=== PATIENT | male | born 1985 | race Caucasian/White ===

== ENCOUNTER 2021-06-15 15:45 | Emergency (ER) | payer OTHER, SELFPAY ==
[2021-06-15 16:10] VITALS: BP 118/65; PULSE 79; RESP 18; TEMP 36.8; O2SAT 100; BMI 32.1
--- NOTE | 2021-06-15 16:17 | ECG_ITS ---
Test Reason : LEG EDEMA Blood Pressure : / mmHG Vent. Rate : 073 BPM Atrial Rate : 073 BPM P-R Int : 118 ms QRS Dur : 102 ms QT Int : 394 ms P-R-T Axes : 047 028 020 degrees QTc Int : 434 ms Normal sinus rhythm Normal ECG No previous ECGs available Referred By: Generic ED Physician Electronically Signed By:Delio Walls
[2021-06-15 16:49] LABS: MANUAL DIFF FLAG NO
[2021-06-15 16:56] LABS: Basophils Percent Auto 0.4 % (0-2); Eosinophils Absolute Auto 0.2 X10*3/uL (0.0-0.4); Eosinophils Percent Auto 1.6 % (0-4); Hematocrit 35.4 % (42-52); Hemoglobin 10.9 g/dl (14.0-18.0); Imm Gran Abs Auto 0.04 X10*3/uL (0.00-0.03); Imm Gran Pct Auto 0.4 % (0.0-0.4); Lymphocytes Absolute Auto 1.4 X10*3/uL (1.2-4.9); Lymphocytes Percent Auto 15.2 % (20-40); Mean Corpuscular HGB Conc 30.8 g/dl (31.0-36.0); Mean Corpuscular Hemoglobin 25.6 pg (27.0-33.0); Mean Corpuscular Volume 83.3 fL (80-98); Mean Platelet Volume 8.6 fL (9.4-12.4); Monocytes Absolute Auto 0.5 X10*3/uL (0.1-1.2); Monocytes Percent Auto 5.5 % (2-11); Neutrophils Absolute Auto 7.2 X10*3/uL (2.0-8.3); Neutrophils Percent Auto 76.9 % (45-73); Platelet Count 388 X10*3/uL (160-400); Red Blood Count 4.25 X10*6/uL (4.60-5.80); Red Cell Distribution Width 15.1 % (11.0-16.0); White Blood Count 9.3 X10*3/uL (4.8-10.8)
[2021-06-15 17:25] LABS: Anion Gap 10 (12-20); Blood Urea Nitrogen 8 mg/dL (9-16); Calcium 8.6 mg/dL (8.4-10.2); Carbon Dioxide 30 mmol/L (22-29); Chloride 104 mmol/L (96-108); Creatinine Clr Calc Pharmacy 155.2; Estimated Glomerular Filt Rate > 60; Glucose Random 123 mg/dL (60-115); Potassium 3.9 mmol/L (3.3-5.1); Sodium 140 mmol/L (135-145)
[2021-06-15 17:31] LABS: Troponin-I High Sensitivity < 3.5 ng/L (<3.5-35.0)
--- NOTE | 2021-06-15 20:45 | ED_ITS ---
HPI - General Adult General Chief complaint: General Medical Stated complaint: swollen legs Time Seen by Provider: 06/15/21 20:41 Source: patient Mode of arrival: ambulatory Limitations: no limitations History of Present Illness HPI narrative: This is a 56 years old male presented to the emergency department with the chief complaint of bilateral peripheral edema. Denies any chest pain shortness of breath. Patient is homeless he has no fever no chills no other systemic symptoms Onset (ago): week(s) Location: lower extremity Radiation: non-radiation Severity: moderate Related Data Previous Rx's Medication Instructions Recorded furosemide 20 mg tablet (Lasix) 20 mg PO DAILY #7 tab 06/15/21 Allergies Allergy/AdvReac Type Severity Reaction Status Date / Time Penicillins Allergy Unknown Verified 06/15/21 16:10 [facility] Past Medical History Medical History Asthma Surgical History Hx of tonsillectomy Social History Social History Advance Directives: No Advance Directives Information Provided: No Physical Exam Vital Signs: Vital Signs: Last Vital Signs Temp 98.2 F 06/15/21 16:10 Pulse 79 06/15/21 16:10 Resp 18 06/15/21 16:10 BP 118/65 06/15/21 16:10 Pulse Ox 100 06/15/21 16:10 Body Mass Index 32.1 Const: Other: Patient is awake and alert in not acute distress comfortable in the stretcher General: cooperative Nutritional Appearance: average body habitus Orientation/consciousness: oriented to person, oriented to place, oriented to time and patient oriented x3 HENMT: Other: His initial head eyes ears nose and throat is unremarkable Neck: Other: Neck is supple full range of motion Thyroid: Thyroid normal Lymphatic: no lymphadenopathy noted Chest: Chest palpation & inspection: normal inspection of the chest Resp: Other: Lungs are clear during auscultation Auscultation: clear to auscultation bilaterally Cardio: Other: Heart regular rate rhythm a Jugular venous distension: no JVD Rhythm: regular rhythm Heart sounds: S1 normal heart sound present and S2 normal heart sound present GI: Other: Abdomen is soft not tender Palpation (GI): Soft to palpation, not firm and no guarding Neuro: General: oriented to person, oriented to place, oriented to time and patient oriented x3 Extrem: Other: Examination of the lower extremity shows 3+ edema bilaterally Medical Decision Making MDM Narrative Medical decision making narrative: This is a 36 years old with bilateral lower extremity edema BUN and creatinine is normal, LFT okay, white count is normal no sign of infection he is afebrile and not toxic, I think it is reasonable to discharge the patient on p.o. furosemide and follow-up with his primary care physician as outpatient, also elevation of the legs and low-salt diet was recommended Lab Data Result diagrams: 06/15/21 16:40 06/15/21 16:40 Labs: Lab Results 06/15/21 06/15/21 06/15/21 Range/Units 16:40 16:40 16:40 WBC 9.3 (4.8-10.8) X10*3/uL RBC 4.25 L (4.60-5.80) X10*6/uL Hgb 10.9 L (14.0-18.0) g/dl Hct 35.4 L (42-52) % MCV 83.3 (80-98) fL MCH 25.6 L (27.0-33.0) pg MCHC 30.8 L (31.0-36.0) g/dl RDW 15.1 (11.0-16.0) % Plt Count 388 (160-400) X10*3/uL MPV 8.6 L (9.4-12.4) fL Immature Gran % (Auto) 0.4 (0.0-0.4) % Neut % (Auto) 76.9 H (45-73) % Lymph % (Auto) 15.2 L (20-40) % [place] % (Auto) 5.5 (2-11) % Eos % (Auto) 1.6 (0-4) % Baso % (Auto) 0.4 (0-2) % Lymph # (Auto) 1.4 (1.2-4.9) X10*3/uL [place] # (Auto) 0.5 (0.1-1.2) X10*3/uL Eos # (Auto) 0.2 (0.0-0.4) X10*3/uL Baso # (Auto) 0.0 (0.0-0.2) X10*3/uL Abs Immat Gran (auto) 0.04 H (0.00-0.03) X10*3/uL Absolute Neuts (auto) 7.2 (2.0-8.3) X10*3/uL Absolute Nucleated RBC 0.000 (0.0-0.012) X10*3/uL Nucleated RBC % (auto) 0.0 (0.0-0.2) /100WBC Sodium 140 (135-145) mmol/L Potassium 3.9 (3.3-5.1) mmol/L Chloride 104 (96-108) mmol/L Carbon Dioxide 30 H (22-29) mmol/L Anion Gap 10 L (12-20) BUN 8 L (9-16) mg/dL Creatinine 0.77 (0.5-1.4) mg/dL Estim Creat Clear Calc 155.2 Estimated GFR > 60 Random Glucose 123 H (60-115) mg/dL Calcium 8.6 (8.4-10.2) mg/dL Total Bilirubin 0.4 (0.0-1.0) mg/dL Direct Bilirubin 0.2 (0.0-0.5) mg/dL AST 39 H (5-37) U/L ALT 31 (0-40) U/L Alkaline Phosphatase 66 (39-117) U/L Troponin I High Sens < 3.5 (<3.5-35.0) ng/L Total Protein 7.3 (6.5-8.0) g/dL Albumin 3.5 (3.5-5.0) g/dL Discharge Plan Discharge Clinical Impression: Edema Patient Disposition: Home, Self-Care Instructions: Edema (ED) Additional Instructions: Keep the feet elevated low-salt diet rest take Lasix daily make an appoint with your primary care physician for follow-up Prescriptions: New furosemide [Lasix] 20 mg tablet 20 mg PO DAILY Qty: 7 RF: 0 Referrals: Physician,None [Primary Care Provider] - 2 days Interventions: ED Discharge Assessment Last Done: 06/15/21 23:08 Discharge Date/Time: 06/15/21 23:08
[2021-06-15] MEDS: Furosemide 40 MG TABLET PO (21:05)
[2021-06-15 21:06] LABS: Alanine Aminotransferase 31 U/L (0-40); Albumin Level 3.5 g/dL (3.5-5.0); Alkaline Phosphatase 66 U/L (39-117); Aspartate Amino Transferase 39 U/L (5-37); Bilirubin Direct 0.2 mg/dL (0.0-0.5); Bilirubin Total 0.4 mg/dL (0.0-1.0); Total Protein 7.3 g/dL (6.5-8.0)
== END 2021-06-15 23:08 | disposition home or self-care (01) ==
PROVIDERS: Emergency Provider Emergency Medicine
DX: R60.0 Localized edema (principal); Z79.899 Other long term (current) drug therapy
CPT/HCPCS: 36415; 80048; 80076; 84484; 85025; 93005; 99283

== ENCOUNTER 2021-08-31 21:08 | Emergency (ER) | payer OTHER, SELFPAY ==
[2021-08-31 21:18] VITALS: BP 127/65; PULSE 114; O2SAT 100
[2021-08-31 21:31] VITALS: BP 139/75; PULSE 101; RESP 18; TEMP 36.1; O2SAT 97; BMI 31.0
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
--- NOTE | 2021-08-31 22:28 | HO.SUDE ---
CARE Team attempted to meet with pt to offer him a SUDE assessment, but pt was discharged and left before CARE Team could meet with him.
== END 2021-08-31 22:33 | disposition home or self-care (01) ==
PROVIDERS: Emergency Provider Emergency Medicine
DX: T40.1X1A Poisoning by heroin, accidental (unintentional), initial encounter (principal); Y92.9 Unspecified place or not applicable; F11.19 Opioid abuse with unspecified opioid-induced disorder; Z79.899 Other long term (current) drug therapy; Z71.51 Drug abuse counseling and surveillance of drug abuser
CPT/HCPCS: 99283

== ENCOUNTER 2023-05-05 10:05 | Inpatient (IN) | payer MEDICAID, SELFPAY ==
[2023-05-05] VITALS (14 sets, daily range): BP systolic 130–169; BP diastolic 80–95; PULSE 97–120; RESP 16–55; TEMP 36.2–39; O2SAT 90–97; BMI 30.1; BMI 28.2; BMI 30.5
--- NOTE | ~2023-05-05 | CT_ITS ---
EXAMINATION: CT CHEST WITHOUT CONTRAST CLINICAL INFORMATION: Evaluate for abscess formation COMPARISON: Plain film same day TECHNIQUE: Multidetector volumetric CT imaging of the chest was done. Axial MIP volume rendering provided. Sagittal and coronal reformatted images were obtained. This CT examination was performed using dose optimization techniques as appropriate, variously including the following: *Automated exposure control *Adjustment of mA and/or kV according to patient size (this includes techniques or standardized protocols for targeted exams where dose is matched to indication/reason for exam; i.e. extremities or head) *Use of iterative reconstruction technique DLP: 272 mGy-cm FINDINGS: Thoracic inlet showing nodular thyroid. Ultrasound would be recommended. This is on the right. The axillary regions are unremarkable. Partially imaged upper abdominal structures demonstrate no acute finding. Possible splenomegaly but spleen is incompletely visualized. Centrally no significant coronary calcifications are seen. There is some central adenopathy. This could be reactive. This is a noncontrast study which significantly limits this exam especially for the detection of abscess. Prominent hilar regions could be adenopathy. Imaging lung restrepo. Right lung; Motion limits evaluation. Dense infiltrate of the right middle lobe.. There is air bronchograms more centrally but distally has a more confluent appearance and I believe there is low attenuation immediately adjacent associated with the pleura this may represent loculated fluid or pleural reaction. There is a small dependent posterior effusion present. Some areas of patchy opacity otherwise throughout the right lung. Left lung; Again motion limits the exam. Areas of patchy opacity in left lower lobe and left upper lung may represent areas of infiltrate. Review of the bone windows demonstrates no suspicious finding.: CT/CT chest wo IV con IMPRESSION: Lack of intravenous contrast. Given this abscess formation is not adequately evaluated for. There is a dense infiltrate in the right middle lobe as described with adjacent pleural collection and abscess in this region cannot be excluded. If further evaluation is warranted recommendation is post contrast study. Otherwise scattered areas of opacities in the lungs consistent with patchy areas of infiltrate. There is a small dependent right effusion. Increased central adenopathy may be reactive. Follow-up is recommended here
--- NOTE | ~2023-05-05 | XR_ITS ---
EXAMINATION: XR CHEST CLINICAL INFORMATION: Chest tube COMPARISON: 05/10/2023 (time stamp 9:11 AM) TECHNIQUE: AP portable upright view of the chest was obtained. FINDINGS: Right small bore chest tube noted. Significant decrease in volume of right pleural effusion with small residual effusion. No pneumothorax. Moderate residual left effusion. Improving lung volumes. Bibasilar lung consolidation. Right PICC line tip projects over the right heart. Heart and mediastinum grossly normal where seen. Gaseous distention of the stomach. XR/XR chest 1V IMPRESSION: Reduction in right pleural effusion following chest tube. Persistent left effusion.
--- NOTE | ~2023-05-05 | CT_ITS ---
EXAMINATION: CT CHEST WITHOUT CONTRAST CLINICAL INFORMATION: Pneumonia, abscess evaluation COMPARISON: Examination of 5 days previous TECHNIQUE: Multidetector volumetric CT imaging of the chest was done. Axial MIP volume rendering provided. Sagittal and coronal reformatted images were obtained. This CT examination was performed using dose optimization techniques as appropriate, variously including the following: *Automated exposure control *Adjustment of mA and/or kV according to patient size (this includes techniques or standardized protocols for targeted exams where dose is matched to indication/reason for exam; i.e. extremities or head) *Use of iterative reconstruction technique DLP: 251 mGy-cm FINDINGS: Examination limited due to lack of IV contrast. LUNGS: New marked compressive atelectasis in the lower lobes since the previous evaluation. New atelectatic change of the posteromedial left upper lobe near the apex. Lateral subpleural lingular nodule series 5 image 359 at 4.5 to 5 mm, not significantly changed. New peripheral consolidation in the lingula images 378-407 may reflect atelectasis or infiltrate. Nodularity of the subpleural lateral left upper lobe again observed with an ill-defined focus image 274 at 1.6 cm slightly larger, with ill-defined margins and a smaller rounder focus image 266 at 4 mm. These could be related to infectious or inflammatory process however close follow-up would be recommended. Prominent consolidation in the right middle lobe is again observed with an oblong collection closely apposed to the pleural surface during 12 Hounsfield units and 7.2 cm maximal dimension. There appear to be posterior inferior gas bubbles observed. Abscess or empyema considered. MEDIASTINUM: Thyroid nodularity again seen. Mediastinal nodes again seen, slightly larger in the azygos esophageal recess at 1.5 cm. A left para-aortic node series 3 image 23 at 9 mm short axis is mildly larger. Small pericardial fluid. CORONARY ARTERY CALCIFICATION: None visualized on this study. PLEURA: Increased bilateral effusions since the previous evaluation. AXILLA: No new suspicious axillary adenopathy. UPPER ABDOMEN: Spleen enlarged at 14.1 cm but not completely visualized. OSSEOUS STRUCTURES: Spondylitic changes. Slight loss of vertebral body height mid to lower thoracic vertebra but not appearing hyperacute. CT/CT chest wo IV con IMPRESSION: Increased bilateral pleural effusions since the prior evaluation with new compressive atelectasis in the lower lobes. New peripheral consolidation in the lingula may reflect atelectasis or infiltrate. Nodularity of the subpleural lateral left upper lobe may be related to infectious or inflammatory process, with one of the foci appearing slightly larger. Close follow-up would be recommended. Right middle lobe consolidation is again observed with an oblong collection closely apposed to the pleural surface. Examination is limited due to lack of IV contrast however an abscess or empyema is considered. Slightly to mildly larger mediastinal nodes. Other incidental findings as noted above.
--- NOTE | ~2023-05-05 | XR_ITS ---
EXAMINATION: XR CHEST CLINICAL INFORMATION: Follow-up pneumonia/hypoxia COMPARISON: 05/05/2023 chest radiograph and chest CT TECHNIQUE: 2 views of the chest were obtained. FINDINGS: Increasing opacity is identified in the right mid to lower hemithorax and moderate sized layering effusion is seen on lateral view. Heart size likely within normal limits. Mediastinum is unremarkable. Vascularity is mildly prominent. Obscuration of the medial left hemidiaphragm. No definite bony abnormality. XR/XR chest 2V IMPRESSION: Increasing right hemithorax opacity, in part due to moderately sized pleural effusion and likely previously demonstrated right middle lobe consolidation. Interval retrocardiac process and mild vascular congestion also not excluded.
--- NOTE | ~2023-05-05 | US_ITS ---
EXAMINATION: ULTRASOUND-GUIDED THORACENTESIS CLINICAL INFORMATION: Pneumonia and pleural effusion COMPARISON: Previous chest x-ray and chest CT from earlier the same day TECHNIQUE: Procedure and risks and benefits including bleeding, infection and pneumothorax were discussed with the patient and informed consent was obtained. The right posterior lateral chest was prepped and draped in the usual sterile fashion. The skin and soft tissues were anesthetized with 1% lidocaine plain. Using ultrasound guidance and a 4 [place] one stick system, access to the right pleural effusion was obtained. Over an 035 guidewire and following serial dilatation, a 10.2 [place] pigtail chest tube was positioned in the right pleural space. 850 mL of serous sanguinous fluid was removed. Diagnostic specimen was sent. FINDINGS: There is a large minimally complex right pleural effusion with some septations. US/US drain thoracentesis IMPRESSION: Ultrasound-guided right chest tube placement.
--- NOTE | ~2023-05-05 | US_ITS ---
EXAMINATION: US VENOUS WITH DOPPLER UPPER EXTREMITY, LEFT CLINICAL INFORMATION: IV drug abuse with redness and swelling COMPARISON: None available. TECHNIQUE: Ultrasound of the upper extremity is performed using compression sonography and color and pulse Doppler flow with assessment of augmentation of flow. There is also imaging and Doppler assessment of the jugular and subclavian veins. Spectral analysis with color-flow imaging is performed. FINDINGS: There is acute thrombus present in one of the brachial veins as well as the median cubital vein and radial vein. There is thrombus present in the cephalic vein in the median cubital vein which are superficial veins. The jugular vein and subclavian vein and axillary vein are all patent. US/US venous duplex UE LT IMPRESSION: Positive for DVT in the brachial and radial veins as well as superficial thrombophlebitis in the cephalic and median cubital vein.
--- NOTE | ~2023-05-05 | XR_ITS ---
EXAMINATION: XR CHEST CLINICAL INFORMATION: Chest pain. COMPARISON: None available. TECHNIQUE: Frontal view of the chest was obtained. FINDINGS: Prominent right lower and mild right upper lobe patchy airspace opacities, consistent with multifocal pneumonia. No pleural effusion or pneumothorax. Unremarkable cardiomediastinal silhouette. XR/XR chest 1V IMPRESSION: Prominent right lower and mild right upper lobe patchy airspace opacities, consistent with multifocal pneumonia.
--- NOTE | 2023-05-05 10:44 | ED.GENADULT ---
HPI - General Adult General Chief complaint: General Medical Stated complaint: R SIDE CHEST PAIN, WEAK Time Seen by Provider: 05/05/23 10:44 Source: patient and EMS Mode of arrival: EMS Limitations: no limitations History of Present Illness HPI narrative: Patient is a 37 year old assigned male at with a history of cocaine abuse presenting to the emergency department today feeling generally unwell with right sided chest pain. Patient states that he is homeless and has had a cough for a few days but now he feels significantly worse with right sided chest pain. Patient denies any dizziness, lightheadedness, abdominal pain, nausea, vomiting, fever, chills, blurry vision, double vision, loss of vision, difficulty breathing, shortness of breath, back pain, night sweats, pain with urination, increased urinary frequency, increased urinary urgency, blood in his urine or stool, syncope or a near syncopal episode, recent trauma or falls, bowel incontinence, bladder incontinence, bowel retention, bladder retention, or any other complaints at this time. Onset (ago): day(s) (3) Location: chest Radiation: non-radiation Severity: moderate Severity scale (1-10): 5 Relieving factors: none Exacerbating factors: none Associated symptoms: chest pain and cough Treatments prior to arrival: none Related Data Home Medications Medication Instructions Recorded Confirmed No Known Home Meds 05/05/23 05/05/23 Allergies Allergy/AdvReac Type Severity Reaction Status Date / Time Penicillins Allergy Unknown Verified 06/15/21 16:10 Review of Systems Constitutional: Constitutional: Reports no additional constitutional complaints, Denies chills, Denies fever(s) and Denies night sweats Eyes: Eyes: Reports no additional eye complaints, Denies blurry vision, Denies change in vision, Denies diplopia, Denies eye discharge, Denies loss of vision and Denies eye pain ENT: Denies dizziness Cardiovascular: Cardiovascular: Reports no additional cardiovascular complaints, Reports chest pain, Denies lightheadedness, Denies Loss of Consciousness and Denies dyspnea Respiratory: Respiratory: Reports no additional respiratory complaints, Reports cough and Denies dyspnea Gastrointestinal: Gastrointestinal: Reports no additional gastrointestinal complaints, Denies abdominal pain, Denies melena, Denies hematochezia, Denies change in bowel habits and Denies change in stool character Genitourinary: Genitourinary: Reports no additional male genitourinary complaints, Denies hematuria, Denies oliguria, Denies difficulty urinating, Denies dysuria, Denies urinary frequency, Denies urinary hesitancy, Denies urinary incontinence and Denies urinary urgency Musculoskeletal: Musculoskeletal: Reports no additional musculoskeletal complaints, Denies numbness and Denies tingling Neurologic: Denies dizziness, Denies loss of vision, Denies numbness and Denies tingling Psychiatric: Psychiatric: Reports no additional psychiatric complaints Endocrine: Endocrine: Reports no additional endocrine complaints Hematologic/Lymphatic: Hematologic/Lymphatic: Reports no additional hematologic/lymphatic complaints Allergic/Immunologic: Allergic/Immunologic: Reports no additional allergic/immunologic complaints PMFSH Past Medical History Attestation statement: The following information was validated with the patient. Source: old records reviewed and nursing notes reviewed Medical History Asthma Substance abuse Surgical History Hx of tonsillectomy Social History Social History Alcohol intake: current Alcohol intake frequency: 3 or more drinks per day Alcohol type: hard liquor Patient Tobacco Use Status: Current everyday Tobacco user Smoked in Last 30 Days: Yes Substance Use Type: Crack/Cocaine, Heroin and Marijuana Advance Directives: No Advance Directives Information Provided: No Nutrition Risks: Dental problems and Poor intake 0-25% >4 days Physical Exam ED Vital Signs: Vital Signs - 24 hr 05/05/23 10:15 05/05/23 10:54 05/05/23 10:55 Temperature 97.8 F 102 F H Pulse Rate 110 H 120 H Respiratory Rate 24 H 48 H Blood Pressure 146/82 H Pulse Oximetry 93 90 L Oxygen Delivery Method Room Air Room Air Oxygen Flow Rate 05/05/23 11:10 05/05/23 12:34 05/05/23 13:59 Temperature 102 F H Pulse Rate 114 H 119 H 116 H Respiratory Rate 49 H 49 H 45 H Blood Pressure 139/80 158/89 H 163/90 H Pulse Oximetry 94 96 95 Oxygen Delivery Method Nasal Cannula Nasal Cannula Nasal Cannula Oxygen Flow Rate 2 2 2 BMI result Body Mass Index 28.2 Const General: cooperative, no acute distress, alert and awake Nutritional Appearance: well nourished Orientation/consciousness: patient oriented x3 Limitations: no limitations [facility] Head: Yes normal to inspection and Yes atraumatic Ears: hearing grossly normal bilaterally and external ears normal General nose exam: Normal external nose present, no nasal discharge noted and no epistaxis Face and sinus: Yes normal facial exam, No abrasion and No laceration Mouth: Normal oral and palatal mucosa present, no drooling and no muffled voice Eyes General: appearance normal, both eyes and all related structures Periorbital: periorbital findings normal Eyelids: Yes eyelids normal Conjunctivae: conjunctivae normal Pupils: Equal, round and reactive pupils present EOM: EOMs intact bilaterally Neck Neck: Yes normal visual inspection, Yes full ROM and Yes no lymphadenopathy Chest Chest palpation & inspection: normal inspection of the chest Resp Effort & Inspection: able to speak in complete sentences and labored Cardio Rate: tachycardic Rhythm: regular rhythm GI Inspection: Yes normal to inspection Palpation (GI): Soft to palpation, not firm, nontender, no guarding and not rigid Neuro General: patient oriented x3 and moves all extremities Cranial nerves: Yes Equal, round and reactive pupils present Cognition (Neuro): normal cognition Motor exam (neuro): 5/5 motor strength present throughout Sensory Exam: Normal double simultaneous stimulation for sensation Coordination: [id number] test normal Extrem General: Yes normal to inspection, Yes full ROM and Yes capillary refill normal Psych Appearance: grossly normal Mental Status: mental status grossly normal Affect: normal affect Attitude: cooperative Thought process: Normal thought process present Thought content: Normal thought content present Insight: Good insight present (Psych) Medications Administered Generic Name Dose Route Start Last Admin Trade Name Freq PRN Reason Stop Dose Admin Vancomycin HCl 2,000 mg in 500 mls @ 250 mls/hr 05/05/23 14:00 05/05/23 15:09 Vancomycin/Ns IV 05/05/23 15:59 250 mls/hr ONCE ONE Administration Discontinued Medications Generic Name Dose Route Start Last Admin Trade Name Freq PRN Reason Stop Dose Admin Acetaminophen 650 mg 05/05/23 12:34 05/05/23 13:19 Acetaminophen Supp 650 Mg Supp.Rect VT 05/05/23 12:35 650 mg ONCE ONE Administration Ceftriaxone Sodium 2 gm/ 50 mls @ 100 mls/hr 05/05/23 10:52 05/05/23 11:59 Sodium Chloride IV 05/05/23 11:21 Infused ONCE ONE Infusion Sodium Chloride 2,857.62 mls @ 2,857.62 mls/hr 05/05/23 10:54 05/05/23 13:58 Ns 30 ml/kg infuse over 1 hr (2857.62 ml) 05/05/23 11:53 Infused IV Infusion .Q1H STA Ketorolac Tromethamine 15 mg 05/05/23 12:34 05/05/23 13:19 Ketorolac Tromethamine 15 Mg/Ml Vial IVPUSH 05/05/23 12:35 15 mg ONCE ONE Administration Medical Decision Making Medical Decision Making MDM Narrative: Patient is a 37 year old assigned male at with a history of cocaine use presenting to the emergency department today with right sided chest pain and feeling generally unwell. Patient's physical exam was as noted in the physical exam portion of this chart. Patient's blood work showed a markedly elevated WBC count of 27, a lactic acid of 2.5, and a decreased albumin of 2.8. The rest of the patient's labs were grossly normal. Patient's EKG was unremarkable. Patient's chest x-ray showed multifocal pneumonia. Patient was hypoxic at 88% on room air and was placed on 2 liters of oxygen via nasal cannula which brought him up to 96%. Patient was immediately given IV ceftriaxone and 30mg/kg of IV fluids. Patient's clinical presentation is consistent with sepsis secondary to pneumonia. I spoke with the hospitalist team who agreed to admission. I explained my physical exam findings as well as all test results to the patient. I answered all questions asked by the patient. Patient verbalized agreement and understanding with this treatment plan and admission. Differential Diagnosis Differential Diagnoses: The differential diagnosis associated with the presentation includes sepsis, pneumonia Admission/Observation Consideration of admission/observation: Escalation of care including admission/observation considered Patient is admitted. Lab Data [facility] Lab Attestation statement: I reviewed the patient's lab results. My interpretation of these labs is in the MDM portion of this chart. 05/05/23 11:08 05/05/23 12:58 Labs: Lab Results 05/05/23 05/05/23 05/05/23 Range/Units 11:06 11:08 11:08 WBC 27.0 H (4.8-10.8) X10*3/uL RBC 5.37 (4.60-5.80) X10*6/uL Hgb 13.2 L (14.0-18.0) g/dl Hct 41.7 L (42.0-52.0) % MCV 77.7 L (80.0-98.0) fL MCH 24.6 L (27.0-33.0) pg MCHC 31.7 (31.0-36.0) g/dl RDW 14.1 (11.0-16.0) % Plt Count 261 (160-400) X10*3/uL MPV 9.3 L (9.4-12.4) fL Immature Gran % (Auto) 0.8 H (0.0-0.4) % Neut % (Auto) 93.2 H (45-73) % Lymph % (Auto) 1.9 L (20-40) % [place] % (Auto) 3.4 (2-11) % Eos % (Auto) 0.4 (0-4) % Baso % (Auto) 0.3 (0-2) % Lymph # (Auto) 0.5 L (1.2-4.9) X10*3/uL [place] # (Auto) 0.9 (0.1-1.2) X10*3/uL Eos # (Auto) 0.1 (0.0-0.4) X10*3/uL Baso # (Auto) 0.1 (0.0-0.2) X10*3/uL Abs Immat Gran (auto) 0.21 H (0.00-0.03) X10*3/uL Absolute Neuts (auto) 25.1 H (2.0-8.3) x10*3/uL Absolute Nucleated RBC 0.000 (0.0-0.012) X10*3/uL Nucleated RBC % (auto) 0.0 (0.0-0.2) /100WBC Smear Tech's Comments VERIFIED Sodium (135-145) mmol/L Potassium (3.3-5.1) mmol/L Chloride (96-108) mmol/L Carbon Dioxide (22-29) mmol/L Anion Gap (12-20) BUN (9-16) mg/dL Creatinine (0.5-1.4) mg/dL Estim Creat Clear Calc Estimated GFR Random Glucose (60-115) mg/dL Lactic Acid 2.5 H* (0.5-2.0) mmol/L Calcium (8.4-10.2) mg/dL Magnesium (1.6-2.6) mg/dL Total Bilirubin (0.0-1.0) mg/dL AST (5-37) U/L ALT (0-40) U/L Alkaline Phosphatase (39-117) U/L Troponin I High Sens 6.9 (<3.5-35.0) ng/L B-Natriuretic Peptide (<100) pg/mL Total Protein (6.5-8.0) g/dL Albumin (3.5-5.0) g/dL COVID-19 ([facility]) (Negative) COVID-19 Clin Com 05/05/23 05/05/23 05/05/23 Range/Units 11:08 11:09 12:58 WBC (4.8-10.8) X10*3/uL RBC (4.60-5.80) X10*6/uL Hgb (14.0-18.0) g/dl Hct (42.0-52.0) % MCV (80.0-98.0) fL MCH (27.0-33.0) pg MCHC (31.0-36.0) g/dl RDW (11.0-16.0) % Plt Count (160-400) X10*3/uL MPV (9.4-12.4) fL Immature Gran % (Auto) (0.0-0.4) % Neut % (Auto) (45-73) % Lymph % (Auto) (20-40) % [place] % (Auto) (2-11) % Eos % (Auto) (0-4) % Baso % (Auto) (0-2) % Lymph # (Auto) (1.2-4.9) X10*3/uL [place] # (Auto) (0.1-1.2) X10*3/uL Eos # (Auto) (0.0-0.4) X10*3/uL Baso # (Auto) (0.0-0.2) X10*3/uL Abs Immat Gran (auto) (0.00-0.03) X10*3/uL Absolute Neuts (auto) (2.0-8.3) x10*3/uL Absolute Nucleated RBC (0.0-0.012) X10*3/uL Nucleated RBC % (auto) (0.0-0.2) /100WBC Smear Tech's Comments Sodium 139 (135-145) mmol/L Potassium 3.4 (3.3-5.1) mmol/L Chloride 106 (96-108) mmol/L Carbon Dioxide 21 L (22-29) mmol/L Anion Gap 15 (12-20) BUN 11 (9-16) mg/dL Creatinine 0.67 (0.5-1.4) mg/dL Estim Creat Clear Calc 171.1 Estimated GFR > 60 Random Glucose 143 H (60-115) mg/dL Lactic Acid (0.5-2.0) mmol/L Calcium 8.8 (8.4-10.2) mg/dL Magnesium 1.9 (1.6-2.6) mg/dL Total Bilirubin 1.6 H (0.0-1.0) mg/dL AST 50 H (5-37) U/L ALT 43 H (0-40) U/L Alkaline Phosphatase 75 (39-117) U/L Troponin I High Sens (<3.5-35.0) ng/L B-Natriuretic Peptide 80 (<100) pg/mL Total Protein 7.4 (6.5-8.0) g/dL Albumin 2.8 L (3.5-5.0) g/dL COVID-19 ([facility]) Negative (Negative) COVID-19 Clin Com See Note Independent Interpretation I performed an independent interpretation of an: EKG and Plain X-Ray Interpretation: My interpretation is in agreement with the radiologist's impression of this imaging study. EXAMINATION: XR CHEST CLINICAL INFORMATION: Chest pain. COMPARISON: None available. TECHNIQUE: Frontal view of the chest was obtained. FINDINGS: Prominent right lower and mild right upper lobe patchy airspace opacities, consistent with multifocal pneumonia. No pleural effusion or pneumothorax. Unremarkable cardiomediastinal silhouette. XR/XR chest 1V IMPRESSION: Prominent right lower and mild right upper lobe patchy airspace opacities, consistent with multifocal pneumonia. Dictated By: Lincoln Medel MD Signed By: Electronically signed by Lincoln Medel MD 05/05/23 1107 Vent. Rate: 110 BPM ? ? Atrial Rate: 110 BPM P-R Int: 126 ms? QRS Dur: 100 ms QT Int: 320 ms ? ? ? P-R-T Axes: 031 051 035 degrees QTc Int: 433 ms ? Sinus tachycardia Otherwise normal ECG When compared with ECG of 15-JUN-2021 16:29, Vent. rate has increased BY? 37 BPM DD/ 1111 Radiology Impression Discussion of test interpretation with radiology: I have reviewed the radiologist's reading. Independent Historian Clinical information obtained from an independent historian. History obtained from or confirmed by: EMS (EMS provided additional history as well as confirmed the history provided by the patient.) Social Determinants Patient?s care significantly limited by Social Determinants of Health including: Inadequate housing Critical Care Time Critical Care Time Critical Care Time: Yes Total Critical Care Time: 45 Attestation: I spent 45 minutes of Critical Care Time with this patient. This does not include time spent on separately reported billable procedures. Discharge Plan Discharge Clinical Impression: Multifocal pneumonia, Sepsis Patient Disposition: Admitted As Inpatient
--- NOTE | 2023-05-05 10:45 | ECG_ITS ---
Test Reason : CHEST PAIN Blood Pressure : / mmHG Vent. Rate : 110 BPM Atrial Rate : 110 BPM P-R Int : 126 ms QRS Dur : 100 ms QT Int : 320 ms P-R-T Axes : 031 051 035 degrees QTc Int : 433 ms Sinus tachycardia Otherwise normal ECG When compared with ECG of 15-JUN-2021 16:29, Vent. rate has increased BY 37 BPM Referred By: Calista Feldman Electronically Signed By:SULAIMAN WAGNER
--- NOTE | 2023-05-05 10:54 | PC.NURSE ---
pt cleaned of large amount stool burden, appears to have varying incontinence, some old some new. pt requiring multiple staff assist in wash cloth bath.able to walk back to bed in new linens w stand by assist.
[2023-05-05] MEDS: 0.9 % Sodium Chloride 2,857.62 ML 2857.62 ML IV (11:16)
[2023-05-05 11:18] LABS: Basophils Absolute Auto 0.1 X10*3/uL (0.0-0.2); Basophils Percent Auto 0.3 % (0-2); Eosinophils Absolute Auto 0.1 X10*3/uL (0.0-0.4); Eosinophils Percent Auto 0.4 % (0-4); Hematocrit 41.7 % (42.0-52.0); Hemoglobin 13.2 g/dl (14.0-18.0); Imm Gran Abs Auto 0.21 X10*3/uL (0.00-0.03); Imm Gran Pct Auto 0.8 % (0.0-0.4); Lymphocytes Absolute Auto 0.5 X10*3/uL (1.2-4.9); Lymphocytes Percent Auto 1.9 % (20-40); Mean Corpuscular HGB Conc 31.7 g/dl (31.0-36.0); Mean Corpuscular Hemoglobin 24.6 pg (27.0-33.0); Mean Corpuscular Volume 77.7 fL (80.0-98.0); Mean Platelet Volume 9.3 fL (9.4-12.4); Monocytes Absolute Auto 0.9 X10*3/uL (0.1-1.2); Monocytes Percent Auto 3.4 % (2-11); Neutrophils Absolute Auto 25.1 x10*3/uL (2.0-8.3); Neutrophils Percent Auto 93.2 % (45-73); Platelet Count 261 X10*3/uL (160-400); Red Blood Count 5.37 X10*6/uL (4.60-5.80); Red Cell Distribution Width 14.1 % (11.0-16.0); SCAN SMEAR FLAG 1
[2023-05-05] MEDS: cefTRIAXone sodium 2 GM in 0.9 % Sodium Chloride 50 ML IV (11:20)
--- NOTE | 2023-05-05 11:25 | PC.NURSE ---
pt arrived to ED22 H via EMS, tachypnic, diaphoretic and covered in feces. pt brought to bathroom to get cleaned. determined pt could be ? septic, brought to ED2 - tachycardic on the monitor at one-teens, sao2 90s on room air started on 2L nc, pt tachypnic at 50 rr, BP stable, rectal temp febrile at 102. . 2 IV lines placed, pt a difficult poke d/t IVDU, 20G placed in the RAC, 22G placed in L hand. septic fluids infusing on pressure bag. IV abx hung.
[2023-05-05 11:28] LABS: COVID-19 Test Negative (Negative); IDNOW Serial# 08D9AD1C
[2023-05-05 11:32] LABS: Lactic Acid 2.5 mmol/L (0.5-2.0)
[2023-05-05 11:35] LABS: MANUAL DIFF FLAG SCAN; SLIDE REVIEW VERIFIED
[2023-05-05 11:36] LABS: B Type Natriuretic Peptide 80 pg/mL (<100)
[2023-05-05 11:41] LABS: Troponin-I High Sensitivity 6.9 ng/L (<3.5-35.0)
--- NOTE | 2023-05-05 12:19 | PHA.MEDREC ---
Pharmacy Consult ? Medication Reconciliation Pharmacy has completed the medication reconciliation. patient was a poor historian. He confirmed that he takes medications OTC but was unable to tell me which ones. I started to list what it could be used for and he nodded at pain medications but was unable to tell me what and how he takes it. He said he uses [facility]. I called [facility] and [facility] to see if there was any history and there was only one prescription for suboxone about a year ago at [facility].
[2023-05-05 13:12] LABS: Reflex Lactate? Lactic Acid Added
[2023-05-05] MEDS: Acetaminophen Supp 650 MG SUPP.RECT PR (13:19)
[2023-05-05] MEDS: Ketorolac Tromethamine 15 MG/ML VIAL IVPUSH (13:19)
[2023-05-05 13:26] LABS: Alanine Aminotransferase 43 U/L (0-40); Albumin Level 2.8 g/dL (3.5-5.0); Alkaline Phosphatase 75 U/L (39-117); Anion Gap 15 (12-20); Aspartate Amino Transferase 50 U/L (5-37); Bilirubin Total 1.6 mg/dL (0.0-1.0); Blood Urea Nitrogen 11 mg/dL (9-16); Calcium 8.8 mg/dL (8.4-10.2); Carbon Dioxide 21 mmol/L (22-29); Chloride 106 mmol/L (96-108); Creatinine Clr Calc Pharmacy 171.1; Estimated Glomerular Filt Rate > 60; Glucose Random 143 mg/dL (60-115); Magnesium 1.9 mg/dL (1.6-2.6); Potassium 3.4 mmol/L (3.3-5.1); Sodium 139 mmol/L (135-145); Total Protein 7.4 g/dL (6.5-8.0)
--- NOTE | 2023-05-05 13:53 | PM.IMHP ---
History of Present Illness Date of Service: 05/05/23 <ADE Bishop - Last Filed: 05/05/23 15:39> Attending physician on admission: Eusebio Rayo <ADE Bishop - Last Filed: 05/05/23 15:39> Chief Complaint: SOB, cough, painful breathing <ADE Bishop - Last Filed: 05/05/23 15:39> Pt is a 37-year-old male with no significant PMH not on home medication who presents to the ED with?right-sided pleuritic chest pain and mostly nonproductive cough for the last couple of days. Patient is homeless and has been feeling generally unwell the past few days. Presents to ED today after significant worsening of symptoms. Patient has been experiencing shortness of breath, right-sided chest pain with inspiration, and mostly nonproductive cough. Patient has been feeling fatigued. Denies fever, chills, nausea, vomiting, abdominal pain. No chest pain/pressure, palpitations. Denies headache or vision changes. Patient is an active smoker of 1 pack per day. Patient denies any alcohol, marijuana, or illicit substance use. In the ED patient was febrile to 102.2, tachypneic up to 49, tachycardic up to 120, hypertensive up to 165/86, satting 90% O2 on RA. Labs were significant for leukocytosis of 27.0, H&H 13.2/41.7, lactic acid of 2.5, total bilirubin 1.6, AST of 50, ALT 43, albumin 2.8. Electrolytes WNL, troponin, BNP negative. CXR showed prominent right lower and mild right upper lobe patchy airspace consistent with multifocal pneumonia. EKG demonstrated sinus tachycardia without evidence of ST elevations or depressions. Pt was treated with IVF, ceftriaxone, vancomycin, ketorolac, and acetaminophen. Pt will be admitted to the hospital for treatment of sepsis in the setting of multifocal pneumonia. <ADE Bishop - Last Filed: 05/05/23 15:39> Review of Systems Review of Systems: Shortness of breath Right-sided pleuritic chest pain Fatigue, generalized weakness Denies fever, chills, nausea, vomiting, abdominal pain, diarrhea No chest pressure, palpitations <ADE Bishop - Last Filed: 05/05/23 15:39> Yes all other systems are reviewed and are negative <ADE Bishop - Last Filed: 05/05/23 15:39> [facility] Medical History: Medical History Asthma Substance abuse <ADE Bishop - Last Filed: 05/05/23 15:39> Surgical History: Surgical History Hx of tonsillectomy <ADE Bishop - Last Filed: 05/05/23 15:39> Social History: Social History Alcohol intake: current Alcohol intake frequency: 3 or more drinks per day Alcohol type: hard liquor Patient Tobacco Use Status: Current everyday Tobacco user Smoked in Last 30 Days: Yes Substance Use Type: Crack/Cocaine, Heroin and Marijuana Advance Directives: No Advance Directives Information Provided: No Nutrition Risks: Dental problems and Poor intake 0-25% >4 days <ADE Bishop - Last Filed: 05/05/23 15:39> Meds Allergies/Adverse reactions: Allergies Allergy/AdvReac Type Severity Reaction Status Date / Time Penicillins Allergy Unknown Verified 06/15/21 16:10 <ADE Bishop - Last Filed: 05/05/23 15:39> Active Medications: Current Medications Vancomycin HCl (Vancomycin/Ns) 2,000 mg in 500 mls @ 250 mls/hr IV ONCE ONE Stop: 05/05/23 15:59 Pharmacy Consult (Consult Rx Perform Med Rec) 1 each MISCELLANE ONCE PRN PRN Reason: Consult order <ADE Bishop - Last Filed: 05/05/23 15:39> Home medications: Home Medications Medication Instructions Recorded Confirmed Last Taken Type No Known Home Meds 05/05/23 05/05/23 Unknown History <ADE Bishop - Last Filed: 05/05/23 15:39> Physical Exam Vital Signs and Narrative: Vital Signs: Last Vital Signs Temp 102 F H 05/05/23 12:34 Pulse 119 H 05/05/23 12:34 Resp 49 H 05/05/23 12:34 BP 158/89 H 05/05/23 12:34 Pulse Ox 96 06/25/23 12:34 O2 Del Method Nasal Cannula 05/05/23 12:34 O2 Flow Rate 2 05/05/23 12:34 BMI result Body Mass Index 28.2 <ADE Bishop - Last Filed: 05/05/23 15:39> Constitutional: Alert, ill appearing, poor hygiene, in mild respiratory distress. Mental Status: Oriented to person, place and time. Eyes: Pupils are equal, round, and reactive to light. Ear, Nose, and Throat: Oropharynx clear, mucous membranes moist. Ears and nose without deformities. Trachea midline. Respiratory: Rapid, shallow breaths wtih diffuse right-sided rhonchi. Wet cough noted. Cardiovascular: S1, S2 regular. No murmurs, rubs, or gallops. Gastrointestinal: Abdomen soft, non-tender, non-distended. Normal bowel sounds. Neurologic: Cranial nerves II-XII are grossly intact bilaterally. No focal neurological deficits. Moves all extremities spontaneously. Skin: No rashes or lesions noted. Musculoskeletal: No cyanosis or clubbing. Extremities: No edema. Psychiatric: Normal mood and affect. <ADE Bishop - Last Filed: 05/05/23 15:39> Results Labs CBC and Chem 7: 05/05/23 11:08 05/05/23 12:58 <ADE Bishop - Last Filed: 05/05/23 15:39> Labs: Laboratory Results - last 24 hr 05/05/23 05/05/23 05/05/23 11:06 11:08 11:08 MCV 77.7 L MCH 24.6 L MCHC 31.7 RDW 14.1 Plt Count 261 MPV 9.3 L Immature Gran % (Auto) 0.8 H Neut % (Auto) 93.2 H Lymph % (Auto) 1.9 L [place] % (Auto) 3.4 Eos % (Auto) 0.4 Baso % (Auto) 0.3 Lymph # (Auto) 0.5 L [place] # (Auto) 0.9 Eos # (Auto) 0.1 Baso # (Auto) 0.1 Abs Immat Gran (auto) 0.21 H Absolute Neuts (auto) 25.1 H Absolute Nucleated RBC 0.000 Nucleated RBC % (auto) 0.0 Smear Tech's Comments VERIFIED Anion Gap Estim Creat Clear Calc Estimated GFR Random Glucose Lactic Acid 2.5 H* Calcium Magnesium Total Bilirubin AST ALT Alkaline Phosphatase Troponin I High Sens 6.9 B-Natriuretic Peptide Total Protein Albumin COVID-19 ([facility]) COVID-19 Clin Com 05/05/23 05/05/23 05/05/23 11:08 11:09 12:58 MCV MCH MCHC RDW Plt Count MPV Immature Gran % (Auto) Neut % (Auto) Lymph % (Auto) [place] % (Auto) Eos % (Auto) Baso % (Auto) Lymph # (Auto) [place] # (Auto) Eos # (Auto) Baso # (Auto) Abs Immat Gran (auto) Absolute Neuts (auto) Absolute Nucleated RBC Nucleated RBC % (auto) Smear Tech's Comments Anion Gap 15 Estim Creat Clear Calc 171.1 Estimated GFR > 60 Random Glucose 143 H Lactic Acid Calcium 8.8 Magnesium 1.9 Total Bilirubin 1.6 H AST 50 H ALT 43 H Alkaline Phosphatase 75 Troponin I High Sens B-Natriuretic Peptide 80 Total Protein 7.4 Albumin 2.8 L COVID-19 ([facility]) Negative COVID-19 Clin Com See Note <ADE Bishop - Last Filed: 05/05/23 15:39> Imaging Radiologist's Impressions: Impressions Chest X-Ray 05/05/23 10:50 IMPRESSION: Prominent right lower and mild right upper lobe patchy airspace opacities, consistent with multifocal pneumonia. <ADE Bishop - Last Filed: 05/05/23 15:39> Assessment and Plan (1) Multifocal pneumonia: Status: Acute <ADE Bishop - Last Filed: 05/05/23 15:39> (2) Sepsis: Status: Acute <ADE Bishop - Last Filed: 05/05/23 15:39> Pt is a 37-year-old male with no significant PMH not on home medication who presents to the ED with?right-sided pleuritic chest pain and mostly nonproductive cough for the last couple of days. Patient is homeless and has been feeling generally unwell the past few days. Presents to ED today after significant worsening of symptoms. Pt will be admitted to the hospital for treatment of sepsis in the setting of multifocal pneumonia. Sepsis in the setting of multifocal pneumonia Chest x-ray few prominent right lower and mild right upper lobe patchy airspace opacities Patient meets severe sepsis criteria: WBC of 27, temperature 102.2 degrees, tachycardia of 116, tachypnea of 45, lactic acid 2.5 Patient given ceftriaxone 2g and vancomycin in the ED, will continue, started 05/05/2023 Patient resuscitated with IVF in the ED, given sepsis 30 mls/kg bolus Tylenol for fever, guaifenesin for cough Will check VBG Will get CT of chest Titrate supplemental O2>92, wean as tolerated Follower blood cultures Follow CBC Monitor on telemetry Transaminitis Unclear etiology: Patient not complaining of abdominal pain, denies alcohol use, abdominal exam benign Follow CMP Nicotine dependence Patient smokes 1 pack of cigarettes a day Nicotine replacement therapy Smoking cessation encouraged Full Code Attending:?Dr. Rayo DVT Prophylaxis: Lovenox Pt will require a hospitalization of at least two nights for treatment of?sepsis in the setting fo community-acquired multifocal pneumonia. <ADE Bishop - Last Filed: 05/05/23 15:39> Pt is a 37-year-old male with no significant PMH not on home medication who presents to the ED with?right-sided pleuritic chest pain and mostly nonproductive cough for the last couple of days. Patient is homeless and has been feeling generally unwell the past few days. Presents to ED today after significant worsening of symptoms. Pt will be admitted to the hospital for treatment of sepsis in the setting of multifocal pneumonia. Severe Sepsis in the setting of multifocal pneumonia Chest x-ray few prominent right lower and mild right upper lobe patchy airspace opacities Patient meets severe sepsis criteria: WBC of 27, temperature 102.2 degrees, tachycardia of 116, tachypnea of 45, lactic acid 2.5 Patient given ceftriaxone 2g and vancomycin in the ED, will continue, started 05/05/2023 Patient resuscitated with IVF in the ED, given sepsis 30 mls/kg bolus Tylenol for fever, guaifenesin for cough Will check VBG Will get CT of chest Titrate supplemental O2>92, wean as tolerated Follower blood cultures Follow CBC Monitor on telemetry Transaminitis Unclear etiology: likely 2/2 sepsis Patient not complaining of abdominal pain, denies alcohol use, abdominal exam benign Follow CMP Nicotine dependence Patient smokes 1 pack of cigarettes a day Nicotine replacement therapy Smoking cessation encouraged Drug abuse reports injecting heroin monitor for withdrawal get addiction team eval Full Code Attending:?Dr. Rayo DVT Prophylaxis: Lovenox Pt will require a hospitalization of at least two nights for treatment of?sepsis in the setting fo community-acquired multifocal pneumonia. <Eusebio Rayo MD - Last Filed: 05/05/23 17:05> Time Spent With Patient Time: Total time managing care of this patient today ____ minutes. <ADE Bishop - Last Filed: 05/05/23 15:39> Quality Stroke Does the patient have a stroke diagnosis?: No <ADE Bishop - Last Filed: 05/05/23 15:39> VTE Prior VTE?: No <ADE Bishop - Last Filed: 05/05/23 15:39> VTE Risk Level:: Medical - moderate - high <ADE Bishop - Last Filed: 05/05/23 15:39> VTE Device Contraindication: Treatment Not Indicated <ADE Bishop - Last Filed: 05/05/23 15:39> VTE Drug Contraindication: N/A - Med Ordered <ADE Bishop - Last Filed: 05/05/23 15:39>
--- NOTE | 2023-05-05 13:58 | PC.NURSE ---
fluids infused >1 hr - pt not keeping arm straight for fluid infusion. pt also difficult poke. fluids on pressure bags
[2023-05-05 15:08] LABS: ~Lactic Acid-LAB USE ONLY 1.7 mmol/L (0.5-2.0)
[2023-05-05] MEDS: vancomycin/NS 2,000 MG/500 ML PLAST..BAG 250 MG IV (15:09)
--- NOTE | 2023-05-05 15:23 | PHA.PROG ---
Admission Date/Time: May 05, 2023 14:22 Indication: Sepsis due to pneumonia Weight in k kg Adjusted body weight in K.4 kg Ewing body weight in K kg Obesity Dosing Indication % IBW: 121% Serum Creatinine - Last 168 Hours 05/05/23 12:58 Creatinine 0.67 Estimated CrCl and GFR - Last 168 Hours 05/05/23 12:58 Estim Creat Clear Calc 171.1 Estimated GFR > 60 Vancomycin Loading Dose: 2000 mg Current Vancomycin Dosing Regimen: 1500 mg Q12H Date and Time for next Vancomycin Level to be drawn: 05/06 @ 1300 Pharmacist Comments on Vancomycin Plan: Patient is received load dose vanco 2000 mg in the ER 05/05 @ 1309. Maintenance dose vanco 1500 mgQ12H is scheduled to start 05/06 @ 0300. Expected AUC 554 with a trough if 16.4 Level to be drawn prior to 3rd dose so that pharmacy can monitor while in house Pharmacy will monitor renal function daily. Shanique Moon, Anila Vancomycin dosing will take advantage of [employer] as a clinical decision support tool that uses Bayesian modeling to calculate individual patient's pharmacokinetic parameters and forecast the patient's drug concentration time course with the target goal AUC 24 range of 400 - 600 mg/L/hr.
[2023-05-05 15:32] LABS: VBG Base Excess 1.6 mmol/L; VBG HCO3 22 mmol/L (22-26); VBG pCO2 26 mmHg; VBG pH 7.53 (7.32-7.43); VBG pO2 226 mmHg
[2023-05-05 15:33] LABS: Venous Blood Gas Refer to POC result
[2023-05-05] MEDS: Acetaminophen 325 MG TABLET 975 MG PO (16:48)
[2023-05-05] MEDS: Enoxaparin Sodium 40 MG/0.4 ML SYRINGE SUBCUT (16:48)
[2023-05-05] MEDS: 0.9 % Sodium Chloride Flush 3 ML SYRINGE IVFLUSH ×2 (16:49→21:04)
[2023-05-05 17:30] LABS: Appearance Urine Cloudy; Color Urine Dark Yellow; Glucose Urine UA 100 mg/dL (Negative); Leukocyte Esterase Urine Small (1+) (Negative); Nitrite Urine Positive (Negative); Specific Gravity - Urine >= 1.030 (1.005-1.025); UMIC TRIGGER UACC YES; Urine Blood Large (3+) (Negative); Urine Ketones 15 mg/dL (Negative); Urine Protein 300 (3+) mg/dL (Neg-Trace)
[2023-05-05 17:39] LABS: Bacteria Urine Trace (None Seen); Hyaline Casts Urine 0-2 /LPF (0-2); RBC Urine >20 /HPF (0-2); UACC Culture Trigger YES; WBC Urine 21-50 /HPF (0-5)
[2023-05-05 17:44] LABS: Amphetamine Screen Urine Not Detected (Not Detect); Barbiturates, Urine Not Detected (Not Detect); Benzodiazepines Screen Urine Not Detected (Not Detect); Cannabinoid Screen Urine Not Detected (Not Detect); Cocaine Screen Urine POSITIVE (Not Detect); Fentanyl, urine POSITIVE (Not Detect); Opiate Screen Urine Not Detected (Not Detect); Phencyclidine Screen Urine Not Detected (Not Detect)
--- NOTE | 2023-05-05 18:40 | PC.NURSE ---
Patient arrived from ED on stretcher able to stand pivot to bed with staff assist. Pt drowsy alert to first name and date of only speech clear poor historian unable to answer most questions accurately. Follows simple commands, moves all extremities with generalized weakness. + pedal pulses no edema to feet. Left upper arm red warm swollen skin shiny taught strong radial pulse noted Dr Rayo notified plan to order ultrasound. scattered areas to body of rash. c/o pain in center of chest mid sternal ST on tele. Lung sounds rhonchi all restrepo loose junky non-productive cough pt encouraged to cough and deep breath provided with suction if need for secretions pt with poor effort. RR 45-50. [place] catheter placed for urine bladder scan 79 on arrival to unit. Rectal temp 101.1 ice packs placed to groin and underarms. Alarm and camera for safety. Provided with call patino and educated on use. Will continue to monitor and report changes
[2023-05-05] MEDS: Albuterol/Iprat 2.5/0.5MG 3 ML AMPUL.NEB INHALE (19:27)
[2023-05-05] MEDS: Clindamycin Phosphate/D5W 600 MG/50 ML PIGGYBACK 100 MG IV (21:05)
[2023-05-05] MEDS: 0.9 % Sodium Chloride 1,000 ML 125 ML IVCONT (21:05)
[2023-05-05] MEDS: Morphine Sulfate 2 MG/ML CARTRIDGE IVPUSH (21:09)
--- NOTE | 2023-05-05 21:50 | PC.NURSE ---
Call from radiology for positive DVT in Left Arm in brachial and radial veins. Messaged MD and advised of positive result, MD confirmed receipt.
--- NOTE | 2023-05-05 21:51 | PM.EVENT ---
Event Note Date of Service: 05/05/23 Event Note: Ultrasound positive for DVT. Initiating therapeutic Lovenox Time Spent With Patient Time: Total time managing care of this patient today ____ minutes.
[2023-05-05] MEDS: Enoxaparin Sodium 60 MG/0.6 ML SYRINGE SUBCUT (22:13)
[2023-05-06] VITALS (9 sets, daily range): BP systolic 137–157; BP diastolic 73–87; PULSE 72–101; RESP 16–20; TEMP 36.1–36.8; O2SAT 95–98
[2023-05-06] MEDS: Clindamycin Phosphate/D5W 600 MG/50 ML PIGGYBACK 100 MG IV ×3 (02:27→17:25)
[2023-05-06] MEDS: Ketorolac Tromethamine 15 MG/ML VIAL IVPUSH ×4 (02:27→19:32)
[2023-05-06] MEDS: vancomycin HCL 1,500 MG in 0.9 % Sodium Chloride 500 ML 333.33 MG IV ×2 (03:14→16:14)
[2023-05-06 07:08] LABS: Hematocrit 35.8 % (42.0-52.0); Hemoglobin 11.6 g/dl (14.0-18.0); Mean Corpuscular HGB Conc 32.4 g/dl (31.0-36.0); Mean Corpuscular Hemoglobin 24.9 pg (27.0-33.0); Mean Corpuscular Volume 76.8 fL (80.0-98.0); Mean Platelet Volume 9.7 fL (9.4-12.4); Platelet Count 202 X10*3/uL (160-400); Red Blood Count 4.66 X10*6/uL (4.60-5.80); White Blood Count 19.4 X10*3/uL (4.8-10.8)
[2023-05-06] MEDS: Albuterol/Iprat 2.5/0.5MG 3 ML AMPUL.NEB INHALE ×3 (07:46→19:15)
[2023-05-06] MEDS: Enoxaparin Sodium 100 MG/ML SYRINGE SUBCUT ×2 (08:32→19:35)
[2023-05-06] MEDS: guaiFENesin LA 600 MG TAB.ER.12H 1200 MG PO ×2 (08:32→19:32)
[2023-05-06] MEDS: Acetaminophen 325 MG TABLET 975 MG PO ×2 (08:32→16:14)
[2023-05-06] MEDS: 0.9 % Sodium Chloride Flush 3 ML SYRINGE IVFLUSH ×2 (08:33→16:15)
[2023-05-06 08:36] LABS: Anion Gap 11 (12-20); Blood Urea Nitrogen 12 mg/dL (9-16); Calcium 8.7 mg/dL (8.4-10.2); Carbon Dioxide 24 mmol/L (22-29); Chloride 109 mmol/L (96-108); Estimated Glomerular Filt Rate > 60; Glucose Random 145 mg/dL (60-115); Sodium 141 mmol/L (135-145)
[2023-05-06 08:43] LABS: Potassium 2.7 mmol/L (3.3-5.1)
--- NOTE | 2023-05-06 09:25 | MHC.CM.PN ---
EMR REVIEWED, PT ADMITTED W/MULTIFOCAL PNA & DVT FOUND, CM MET W/PT WHO REPORTS HE HAS BEEN LIVING ON THE STREETS, DENIES USE OF DME/SERVICES AND WOULD HALFWAY PLACEMENT ON D/C, PT REPORTS IF CM UNABLE TO FIND HIM PLACEMENT STATES I'LL WILL BE OKAY, PT ALSO REPORTS HE WOULD LIKE INFO ON PCP'S. PT CONFIRMS HE DOES NOT HAVE A PCP, COVID VAC X3 AND PT HAS BEEN EDUCATED ON AND DECLINES TO COMPLETE A HCP.
[2023-05-06 09:56] LABS: HIV AB/AG Nonreactive (Nonreactive); HIV Num 1 0.14 S/CO (0.00-0.99)
[2023-05-06 10:01] LABS: HBS Num1 0.28 mIU/mL (0-7.99); HBc Num1 0.23 S/CO (0.00-0.79); HBsAGNum1 0.32 S/CO (0.00-0.99); Hepatitis A Antibody IgM 0.45 Index (0-0.79); Hepatitis B Core Antibody Nonreactive (Nonreactive); Hepatitis B Surface Antigen Negative (Negative); ~HepC Num1 12.59 S/CO (0.00-0.79); ~Hepatitis A Antibody IgM Nonreactive (Nonreactive); ~Hepatitis B Surface Antibody NONREACTIVE (Nonreactive); ~Hepatitis C Antibody Reactive (Nonreactive)
--- NOTE | 2023-05-06 10:27 | MHC.RECOVRN ---
Briefly met with pt in 479 after consult placed to Addiction Medicine for substance use. Pt admitted to [facility] [place] for severe sepsis in the setting of multifocal pneumonia as well as DVT. Pt laying in bed, eyes closed, rouses to voice. Pt confused during initial questions, for example, t/w asked how pt is feeling and pt responded I don't know which number you want me to call. When asked directly if pt is using heroin, pt reports using 5 bundles daily, IV. Difficult to engage in further conversation. Pt denies withdrawal symptoms at this time. Denies currently being on methadone or Suboxone. Would like to utilize methadone while here to address withdrawal symptoms. Pt encouraged to notify RN if withdrawal symptoms begin. Denies questions or concerns for t/w. Discussed with Ondina Coronado APRN. Will continue to follow.
[2023-05-06] MEDS: 0.9 % Sodium Chloride 1,000 ML 125 ML IVCONT ×2 (12:17→19:33)
--- NOTE | 2023-05-06 12:23 | P.PNIM_ITS ---
Subjective Subjective Date of Service: 05/06/23 Interval History: Seen and evaluated this morning looks little better but overall still sick No fever overnight blood cultures positive no other overnight events Review of Systems Review of Systems: Yes all other systems are reviewed and are negative Physical Exam Vital Signs: Vital Signs: Last Vital Signs Temp 96.9 F 05/06/23 11:36 Pulse 81 05/06/23 11:36 Resp 20 05/06/23 11:36 BP 142/80 H 05/06/23 11:36 Pulse Ox 95 05/06/23 11:36 O2 Del Method Room Air 05/06/23 11:36 O2 Flow Rate 2 05/05/23 14:36 BMI result Body Mass Index 30.5 Const: Other: Constitutional : Awake with stimulation, disheveled, ill looking Neck : Normal inspection, Supple Cardiovascular : RRR, no JVP, no lower extremity edema Respiratory : fair bilateral air entry decreased on RLL, basal crackles, whe ezes or rhonchi Gastrointestinal: soft, lax, Normal bowel sounds, Non tender Skin : Warm, Dry Neurological : Alert & oriented x3, No focal deficit Objective Data Active Medications Acetaminophen (Acetaminophen 325 Mg Tablet) 650 mg PO Q6H PRN PRN Reason: Pain, Mild (Pain Scale 1-3) Acetaminophen (Acetaminophen 325 Mg Tablet) 975 mg PO QSHIFT [facility] Stop: 05/06/23 22:00 Last Admin: 05/06/23 08:32 Dose: 975 mg Documented By: ALLISON Albuterol Sulfate (Albuterol Sulfate (0.083%) 2.5 Mg/3 Ml Vial.Neb) 2.5 mg INHALE Q4H PRN PRN Reason: Shortness of Breath/Wheezing Albuterol/Ipratropium (Albuterol/Iprat 2.5/0.5mg 3 Ml Ampul.Neb) 3 ml INHALE RQ4H WHILE AWAKE [facility] Last Admin: 05/06/23 10:54 Dose: 3 ml Documented By: KARINA Docusate Sodium (Docusate Sodium 100 Mg Capsule) 100 mg PO DAILY PRN PRN Reason: Constipation Enoxaparin Sodium (Enoxaparin Sodium 100 Mg/Ml Syringe) 100 mg SUBCUT Q12H [facility] Last Admin: 05/06/23 08:32 Dose: 100 mg Documented By: ALLISON Guaifenesin (Guaifenesin La 600 Mg Tab.Er.12h) 1,200 mg PO BID [facility] Last Admin: 05/06/23 08:32 Dose: 1,200 mg Documented By: ALLISON Guaifenesin/Dextromethorphan (Guaifenesin Dm 200/20/10 Ml 10 Ml Syrup) 10 ml PO Q4H PRN PRN Reason: Cough Vancomycin HCl 1,500 mg/ (Sodium Chloride) 500 mls @ 333.333 mls/hr IV Q12H [facility] Last Infusion: 05/06/23 04:57 Dose: 0 mls/hr Documented By: RAUNA Clindamycin Phosphate (Cleocin) 600 mg in 50 mls @ 100 mls/hr IV Q8H [facility] Last Admin: 05/06/23 12:17 Dose: 100 mls/hr Documented By: ALLISON Sodium Chloride (Ns) 1,000 mls @ 125 mls/hr IVCONT .Q8H [facility] Last Admin: 05/06/23 12:17 Dose: 125 mls/hr Documented By: ALLISON Ketorolac Tromethamine (Ketorolac Tromethamine 15 Mg/Ml Vial) 15 mg IVPUSH Q6H [facility] Last Admin: 05/06/23 08:33 Dose: 15 mg Documented By: ALLISON Ondansetron HCl (Ondansetron Hcl 4 Mg/2 Ml Vial) 4 mg IVPUSH Q8H PRN PRN Reason: Nausea and Vomiting Pharmacy Consult (Consult Rx Perform Med Rec) 1 each MISCELLANE ONCE PRN PRN Reason: Consult order Pharmacy Consult (Consult Rx Vancomycin Dosing) 1 each MISCELLANE DAILY PRN PRN Reason: Consult order Sodium Chloride (0.9 % Sodium Chloride Flush 3 Ml Syringe) 3 ml IVFLUSH QSHIFT [facility] Last Admin: 05/06/23 08:33 Dose: 3 ml Documented By: ALLISON Labs 05/06/23 06:33 05/06/23 06:33 Labs: Laboratory Results - last 24 hr 05/05/23 05/05/23 05/05/23 12:58 14:48 15:25 MCV MCH MCHC RDW Plt Count MPV Absolute Nucleated RBC Nucleated RBC % (auto) VBG pH 7.53 H VBG pCO2 26 VBG pO2 226 VBG HCO3 22 VBG O2 Saturation 99.0 VBG Base Excess 1.6 Anion Gap 15 Estim Creat Clear Calc 171.1 Estimated GFR > 60 Random Glucose 143 H Lactic Acid F/U @ 2Hr 1.7 Calcium 8.8 Magnesium 1.9 Total Bilirubin 1.6 H AST 50 H ALT 43 H Alkaline Phosphatase 75 Total Protein 7.4 Albumin 2.8 L Urine Color Urine Appearance Urine pH Ur Specific [place] Urine Protein Urine Glucose (UA) Urine Ketones Urine Blood Urine Nitrite Ur Leukocyte Esterase Urine RBC Urine WBC Ur Squamous Epith Cells Urine Bacteria Hyaline Casts Urine Opiates Screen Urine Fentanyl Screen Ur Barbiturates Screen Ur Phencyclidine Scrn Ur Amphetamines Screen U Benzodiazepines Scrn Urine Cocaine Screen U Marijuana (THC) Screen Hepatitis A IgM Ab Hep Bs Antigen Hep Bs Antibody Hep B Core Total Ab Hepatitis C Ab (EIA) 05/05/23 05/05/23 05/05/23 15:29 17:22 17:22 MCV MCH MCHC RDW Plt Count MPV Absolute Nucleated RBC Nucleated RBC % (auto) VBG pH VBG pCO2 VBG pO2 VBG HCO3 VBG O2 Saturation VBG Base Excess Anion Gap Estim Creat Clear Calc Estimated GFR Random Glucose Lactic Acid F/U @ 2Hr Calcium Magnesium Total Bilirubin AST ALT Alkaline Phosphatase Total Protein Albumin Urine Color Dark Yellow Urine Appearance Cloudy Urine pH 6.0 Ur Specific [place] >= 1.030 H Urine Protein 300 (3+) H Urine Glucose (UA) 100 H Urine Ketones 15 Urine Blood Large (3+) H Urine Nitrite Positive H Ur Leukocyte Esterase Small (1+) H Urine RBC >20 H Urine WBC 21-50 H Ur Squamous Epith Cells 3-5 Urine Bacteria Trace Hyaline Casts 0-2 Urine Opiates Screen Not Detected Urine Fentanyl Screen POSITIVE H Ur Barbiturates Screen Not Detected Ur Phencyclidine Scrn Not Detected Ur Amphetamines Screen Not Detected U Benzodiazepines Scrn Not Detected Urine Cocaine Screen POSITIVE H U Marijuana (THC) Screen Not Detected Hepatitis A IgM Ab Nonreactive Hep Bs Antigen Negative Hep Bs Antibody NONREACTIVE Hep B Core Total Ab Nonreactive Hepatitis C Ab (EIA) Reactive H 05/06/23 05/06/23 06:33 06:33 MCV 76.8 L MCH 24.9 L MCHC 32.4 RDW 14.0 Plt Count 202 MPV 9.7 Absolute Nucleated RBC 0.000 Nucleated RBC % (auto) 0.0 VBG pH VBG pCO2 VBG pO2 VBG HCO3 VBG O2 Saturation VBG Base Excess Anion Gap 11 L Estim Creat Clear Calc 170.0 Estimated GFR > 60 Random Glucose 145 H Lactic Acid F/U @ 2Hr Calcium 8.7 Magnesium Total Bilirubin AST ALT Alkaline Phosphatase Total Protein Albumin Urine Color Urine Appearance Urine pH Ur Specific [place] Urine Protein Urine Glucose (UA) Urine Ketones Urine Blood Urine Nitrite Ur Leukocyte Esterase Urine RBC Urine WBC Ur Squamous Epith Cells Urine Bacteria Hyaline Casts Urine Opiates Screen Urine Fentanyl Screen Ur Barbiturates Screen Ur Phencyclidine Scrn Ur Amphetamines Screen U Benzodiazepines Scrn Urine Cocaine Screen U Marijuana (THC) Screen Hepatitis A IgM Ab Hep Bs Antigen Hep Bs Antibody Hep B Core Total Ab Hepatitis C Ab (EIA) Microbiology Microbiology Results: Microbiology 05/05/23 17:42 Urine Culture - Preliminary Urine clean catch - Clean Catch Midstream No growth to date. 05/05/23 11:08 Blood Culture - Preliminary Blood - Venous Prelim: GPC Gram Stain only 05/05/23 11:08 Blood Culture - Preliminary Blood - Venous Prelim: GPC Gram Stain only Assessment and Plan (1) Sepsis: Status: Acute (2) Multifocal pneumonia: Status: Acute (3) Drug abuse: Status: Acute Plan Pt is a 37-year-old male with no significant PMH not on home medication who presents to the ED with?right-sided pleuritic chest pain and mostly nonproductive cough for the last couple of days. Patient is homeless and has been feeling generally unwell the past few days. Presents to ED today after si gnificant worsening of symptoms. Pt will be admitted to the hospital for treatment of sepsis in the setting of multifocal pneumonia. Severe Sepsis 2/2 GPC bacteremia in the setting of multifocal pneumonia and possible lung abscess CT as reported Blood cultures growing GPC Continue Clindamycin and Vancomycin for now ID, Thoracic and Pulm consults repeat blood cultures follow vancomycin trough Transaminitis likely 2/2 sepsis Patient not complaining of abdominal pain, denies alcohol use Follow CMP Nicotine dependence smokes 1 pack of cigarettes a day Nicotine replacement therapy Smoking cessation encouraged Drug abuse reports injecting heroin monitor for withdrawal addiction team eval Full Code DVT Prophylaxis: Lovenox Pt will require a hospitalization of overnight for treatment of?sepsis in the setting of bacteremia, community-acquired multifocal pneumonia and possible abscess Time Spent With Patient Time: Total time managing care of this patient today ____ minutes. Quality Stroke Does the patient have a stroke diagnosis?: No VTE Prior VTE?: No VTE Risk Level:: Medical - moderate - high VTE Device Contraindication: Treatment Not Indicated VTE Drug Contraindication: N/A - Med Ordered
[2023-05-06] MEDS: Potassium Chloride Packet 20 MEQ PACKET 40 MEQ PO ×2 (13:09→16:14)
[2023-05-06] MEDS: methADONE HCl 20 MG/2 ML ORAL.CONC PO (13:09)
--- NOTE | 2023-05-06 13:49 | HO.THORCON_ITS ---
History of Present Illness Consult details Consult date: 05/06/23 Narrative: Patient presents with a several day history of right-sided pleuritic chest pain, feeling unwell, shortness of breath. Workup including CT scan demonstrates a significant right middle lobe inflammatory/pneumonic process. CT scan was somewhat limited because of no contrast but no definitive abscess of the lung was demonstrated. Chart was reviewed and patient evaluated. Initial white count on admission was 27,000 and is down to 19,000 today. [facility] Past Medical History Medical History Asthma Substance abuse Surgical History Surgical History Hx of tonsillectomy Social History Social History Household Members: Unknown / Unable to assess Housing: Homeless Alcohol intake: current Alcohol intake frequency: 3 or more drinks per day Alcohol type: hard liquor Patient Tobacco Use Status: Tobacco use Unknown Substance Use Type: IV Drugs service: No Meds Allergies Allergy/AdvReac Type Severity Reaction Status Date / Time Penicillins Allergy Unknown Verified 06/15/21 16:10 Active Medications: Current Medications Acetaminophen (Acetaminophen 325 Mg Tablet) 650 mg PO Q6H PRN PRN Reason: Pain, Mild (Pain Scale 1-3) Acetaminophen (Acetaminophen 325 Mg Tablet) 975 mg PO QSHIFT [facility] Stop: 05/06/23 22:00 Last Admin: 05/06/23 08:32 Dose: 975 mg Albuterol Sulfate (Albuterol Sulfate (0.083%) 2.5 Mg/3 Ml Vial.Neb) 2.5 mg INHALE Q4H PRN PRN Reason: Shortness of Breath/Wheezing Albuterol/Ipratropium (Albuterol/Iprat 2.5/0.5mg 3 Ml Ampul.Neb) 3 ml INHALE RQ4H WHILE AWAKE [facility] Last Admin: 05/06/23 10:54 Dose: 3 ml Docusate Sodium (Docusate Sodium 100 Mg Capsule) 100 mg PO DAILY PRN PRN Reason: Constipation Enoxaparin Sodium (Enoxaparin Sodium 100 Mg/Ml Syringe) 100 mg SUBCUT Q12H [facility] Last Admin: 05/06/23 08:32 Dose: 100 mg Guaifenesin (Guaifenesin La 600 Mg Tab.Er.12h) 1,200 mg PO BID [facility] Last Admin: 05/06/23 08:32 Dose: 1,200 mg Guaifenesin/Dextromethorphan (Guaifenesin Dm 200/20/10 Ml 10 Ml Syrup) 10 ml PO Q4H PRN PRN Reason: Cough Vancomycin HCl 1,500 mg/ (Sodium Chloride) 500 mls @ 333.333 mls/hr IV Q12H [facility] Last Infusion: 05/06/23 04:57 Dose: Infused Clindamycin Phosphate (Cleocin) 600 mg in 50 mls @ 100 mls/hr IV Q8H [facility] Last Infusion: 05/06/23 13:01 Dose: Infused Sodium Chloride (Ns) 1,000 mls @ 125 mls/hr IVCONT .Q8H [facility] Last Admin: 05/06/23 12:17 Dose: 125 mls/hr Ketorolac Tromethamine (Ketorolac Tromethamine 15 Mg/Ml Vial) 15 mg IVPUSH Q6H [facility] Last Admin: 05/06/23 13:08 Dose: 15 mg Ondansetron HCl (Ondansetron Hcl 4 Mg/2 Ml Vial) 4 mg IVPUSH Q8H PRN PRN Reason: Nausea and Vomiting Pharmacy Consult (Consult Rx Perform Med Rec) 1 each MISCELLANE ONCE PRN PRN Reason: Consult order Pharmacy Consult (Consult Rx Vancomycin Dosing) 1 each MISCELLANE DAILY PRN PRN Reason: Consult order Potassium Chloride (Potassium Chloride Packet 20 Meq Packet) 40 meq PO Q2H [facility] Stop: 05/06/23 15:01 Last Admin: 05/06/23 13:09 Dose: 40 meq Sodium Chloride (0.9 % Sodium Chloride Flush 3 Ml Syringe) 3 ml IVFLUSH QSHIFT [facility] Last Admin: 05/06/23 08:33 Dose: 3 ml Home Medications Medication Instructions Recorded Confirmed Last Taken Type No Known Home Meds 05/05/23 05/05/23 Unknown History Physical Exam Vital Signs: Vital Signs: Last Vital Signs Temp 96.9 F 05/06/23 11:36 Pulse 81 05/06/23 11:36 Resp 20 05/06/23 11:36 BP 142/80 H 05/06/23 11:36 Pulse Ox 95 06/26/23 11:36 O2 Del Method Room Air 05/06/23 11:36 O2 Flow Rate 2 05/05/23 14:36 BMI result Body Mass Index 30.5 Const: Other: Patient is eating lunch, in no acute respiratory distress. He was able to converse although not the greatest historian. Chest: Other: Breath sounds bilaterally. GI: Other: Abdomen soft, benign Results Labs 05/06/23 06:33 05/06/23 06:33 Labs: Abnormal lab results 05/05/23 05/05/23 05/05/23 Range/Units 15:25 15:29 17:22 WBC (4.8-10.8) X10*3/uL Hgb (14.0-18.0) g/dl Hct (42.0-52.0) % MCV (80.0-98.0) fL MCH (27.0-33.0) pg VBG pH 7.53 H (7.32-7.43) Potassium (3.3-5.1) mmol/L Chloride (96-108) mmol/L Anion Gap (12-20) Random Glucose (60-115) mg/dL Ur Specific [place] >= 1.030 H (1.005-1.025) Urine Protein 300 (3+) H (Neg-Trace) mg/dL Urine Glucose (UA) 100 H (Negative) mg/dL Urine Blood Large (3+) H (Negative) Urine Nitrite Positive H (Negative) Ur Leukocyte Esterase Small (1+) H (Negative) Urine RBC >20 H (0-2) /HPF Urine WBC 21-50 H (0-5) /HPF Urine Fentanyl Screen (Not Detect) Urine Cocaine Screen (Not Detect) Hepatitis C Ab (EIA) Reactive H (Nonreactive) 05/05/23 05/06/23 05/06/23 Range/Units 17:22 06:33 06:33 WBC 19.4 H (4.8-10.8) X10*3/uL Hgb 11.6 L (14.0-18.0) g/dl Hct 35.8 L (42.0-52.0) % MCV 76.8 L (80.0-98.0) fL MCH 24.9 L (27.0-33.0) pg VBG pH (7.32-7.43) Potassium 2.7 L D (3.3-5.1) mmol/L Chloride 109 H (96-108) mmol/L Anion Gap 11 L (12-20) Random Glucose 145 H (60-115) mg/dL Ur Specific [place] (1.005-1.025) Urine Protein (Neg-Trace) mg/dL Urine Glucose (UA) (Negative) mg/dL Urine Blood (Negative) Urine Nitrite (Negative) Ur Leukocyte Esterase (Negative) Urine RBC (0-2) /HPF Urine WBC (0-5) /HPF Urine Fentanyl Screen POSITIVE H (Not Detect) Urine Cocaine Screen POSITIVE H (Not Detect) Hepatitis C Ab (EIA) (Nonreactive) Short CBC 05/06/23 Range/Units 06:33 WBC 19.4 H (4.8-10.8) X10*3/uL Hgb 11.6 L (14.0-18.0) g/dl Hct 35.8 L (42.0-52.0) % Plt Count 202 (160-400) X10*3/uL BMP 05/06/23 06:33 Sodium 141 Potassium 2.7 L D Chloride 109 H Carbon Dioxide 24 BUN 12 Creatinine 0.70 Calcium 8.7 Urine 05/05/23 Range/Units 17:22 Urine Color Dark Yellow Urine Appearance Cloudy Urine pH 6.0 (5.0-9.0) Ur Specific [place] >= 1.030 H (1.005-1.025) Urine Protein 300 (3+) H (Neg-Trace) mg/dL Urine Glucose (UA) 100 H (Negative) mg/dL All other labs normal. Assessment and Plan (1) Multifocal pneumonia: Status: Acute Plan At present, patient is clinically stable. If symptoms progress or worsen, consider repeating CT scan with appropriate IV contrast, along with Pulmonary consult. At present, no acute thoracic surgical intervention. Time Spent With Patient Time: Total time managing care of this patient today ____ minutes. Procedures Date of Service Date of Service: 05/06/23
[2023-05-06 13:54] LABS: Vancomycin Random 9.1 mcg/mL (15-20)
--- NOTE | 2023-05-06 14:13 | P.CONPL_ITS ---
History of Present Illness History of Present Illness Consult date: 05/06/23 Requesting physician: Eusebio Rayo Chief complaint: Multifocal Pneumonia Sepsis Narrative: 37-year-old gentleman , current approximately 10-15 pack-year smoker, with underlying history of asthma and polysubstance abuse admitted on 05/05/2023 with community-acquired pneumonia and pleurosy with deep inspirations. CT chest with finding suggestive of an aspiration component and possible early abscess formation in the right middle lobe. Patient with on clindamycin and vancomycin with clinical improvement. Review of Systems Constitutional: Constitutional: Denies daytime sleepiness, Denies excessive sweating, Denies fatigue, Denies fever(s), Denies lethargy, Denies malaise, D enies night sweats, Denies snoring and Denies weight loss Eyes: Eyes: Denies blurry vision and Denies itchy eyes ENT: Denies nasal congestion, Denies post nasal drip, Denies sinus pain, Denies sinus pressure and Denies other ( Thrush) Cardiovascular: Cardiovascular: Denies chest pain, Denies pedal edema, Denies dyspnea, Denies orthopnea and Denies paroxysmal nocturnal dyspnea Respiratory: Respiratory: Denies cough, Denies hemoptysis, Denies excessive phlegm production, Reports pain on inspiration ( with deep inspirations initially, now resolved), Denies dyspnea, Denies snoring and Denies wheezing Gastrointestinal: Gastrointestinal: Denies abdominal pain and Denies heartburn Musculoskeletal: Musculoskeletal: Denies myalgias, Denies arthralgias and Denies joint swelling Integumentary/Breasts: Skin/Breast: Denies rash Neurologic: Denies memory loss and Denies seizure-like activity Psychiatric: Psychiatric: Denies abnormal sleep pattern, Denies anxiety and Denies memory loss Endocrine: Endocrine: Denies excessive sweating, Denies fatigue and Denies heat intolerance Hematologic/Lymphatic: Hematologic/Lymphatic: Denies easy bruising Allergic/Immunologic: Allergic/Immunologic: Denies itchy eyes, Denies seasonal rhinorrhea and Denies wheezing PMFSH Past Medical History Medical History Asthma Substance abuse Surgical History Surgical History Hx of tonsillectomy Social History Social History Household Members: Unknown / Unable to assess Housing: Homeless Alcohol intake: current Alcohol intake frequency: 3 or more drinks per day Alcohol type: hard liquor Patient Tobacco Use Status: Tobacco use Unknown Substance Use Type: IV Drugs service: No Meds Allergies Allergy/AdvReac Type Severity Reaction Status Date / Time Penicillins Allergy Unknown Verified 06/15/21 16:10 Active Medications: Current Medications Acetaminophen (Acetaminophen 325 Mg Tablet) 650 mg PO Q6H PRN PRN Reason: Pain, Mild (Pain Scale 1-3) Acetaminophen (Acetaminophen 325 Mg Tablet) 975 mg PO QSHIFT [facility] Stop: 05/06/23 22:00 Last Admin: 05/06/23 08:32 Dose: 975 mg Albuterol Sulfate (Albuterol Sulfate (0.083%) 2.5 Mg/3 Ml Vial.Neb) 2.5 mg INHALE Q4H PRN PRN Reason: Shortness of Breath/Wheezing Albuterol/Ipratropium (Albuterol/Iprat 2.5/0.5mg 3 Ml Ampul.Neb) 3 ml INHALE RQ4H WHILE AWAKE [facility] Last Admin: 05/06/23 10:54 Dose: 3 ml Docusate Sodium (Docusate Sodium 100 Mg Capsule) 100 mg PO DAILY PRN PRN Reason: Constipation Enoxaparin Sodium (Enoxaparin Sodium 100 Mg/Ml Syringe) 100 mg SUBCUT Q12H [facility] Last Admin: 05/06/23 08:32 Dose: 100 mg Guaifenesin (Guaifenesin La 600 Mg Tab.Er.12h) 1,200 mg PO BID [facility] Last Admin: 05/06/23 08:32 Dose: 1,200 mg Guaifenesin/Dextromethorphan (Guaifenesin Dm 200/20/10 Ml 10 Ml Syrup) 10 ml PO Q4H PRN PRN Reason: Cough Vancomycin HCl 1,500 mg/ (Sodium Chloride) 500 mls @ 333.333 mls/hr IV Q12H [facility] Last Infusion: 05/06/23 04:57 Dose: Infused Clindamycin Phosphate (Cleocin) 600 mg in 50 mls @ 100 mls/hr IV Q8H [facility] Last Infusion: 05/06/23 13:01 Dose: Infused Sodium Chloride (Ns) 1,000 mls @ 125 mls/hr IVCONT .Q8H [facility] Last Admin: 05/06/23 12:17 Dose: 125 mls/hr Ketorolac Tromethamine (Ketorolac Tromethamine 15 Mg/Ml Vial) 15 mg IVPUSH Q6H [facility] Last Admin: 05/06/23 13:08 Dose: 15 mg Ondansetron HCl (Ondansetron Hcl 4 Mg/2 Ml Vial) 4 mg IVPUSH Q8H PRN PRN Reason: Nausea and Vomiting Pharmacy Consult (Consult Rx Perform Med Rec) 1 each MISCELLANE ONCE PRN PRN Reason: Consult order Pharmacy Consult (Consult Rx Vancomycin Dosing) 1 each MISCELLANE DAILY PRN PRN Reason: Consult order Potassium Chloride (Potassium Chloride Packet 20 Meq Packet) 40 meq PO Q2H [facility] Stop: 05/06/23 15:01 Last Admin: 05/06/23 13:09 Dose: 40 meq Sodium Chloride (0.9 % Sodium Chloride Flush 3 Ml Syringe) 3 ml IVFLUSH QSHIFT [facility] Last Admin: 05/06/23 08:33 Dose: 3 ml Home Medications Medication Instructions Recorded Confirmed Last Taken Type No Known Home Meds 05/05/23 05/05/23 Unknown History Physical Exam Vital Signs: Vital Signs: Last Vital Signs Temp 96.9 F 05/06/23 11:36 Pulse 81 05/06/23 11:36 Resp 20 05/06/23 11:36 BP 142/80 H 05/06/23 11:36 Pulse Ox 95 05/06/23 11:36 O2 Del Method Room Air 05/06/23 11:36 O2 Flow Rate 2 05/05/23 14:36 BMI result Body Mass Index 30.5 Const: General: no acute distress and alert Nutritional Appearance: not obe se Orientation/consciousness: Other orientation findings ( oriented) HEENT: Head: Yes atraumatic Eyes: General: appearance normal, both eyes and all related structures Sclerae: sclerae normal EOM: EOMs intact bilaterally Neck: Neck: Yes supple Lymphatic: no lymphadenopathy noted Resp: Effort & Inspection: normal respiratory effort and no use of accessory muscles Auscultation: clear to auscultation bilaterally Cardio: Rate: regular rate Rhythm: regular rhythm Heart sounds: no gallops, no murmurs and no rubs Skin: General skin exam: other ( warm) Extrem: General: No clubbing, No cyanosis and No edema Results Laboratory Findings 05/06/23 06:33 05/06/23 06:33 Abnormal lab findings: Abnormal Labs 05/05/23 05/05/23 05/05/23 11:06 11:08 12:58 WBC 27.0 H Hgb 13.2 L Hct 41.7 L MCV 77.7 L MCH 24.6 L MPV 9.3 L Immature Gran % (Auto) 0.8 H Neut % (Auto) 93.2 H Lymph % (Auto) 1.9 L Lymph # (Auto) 0.5 L Abs Immat Gran (auto) 0.21 H Absolute Neuts (auto) 25.1 H VBG pH Potassium Chloride Carbon Dioxide 21 L Anion Gap Random Glucose 143 H Lactic Acid 2.5 H* Total Bilirubin 1.6 H AST 50 H ALT 43 H Albumin 2.8 L Ur Specific [place] Urine Protein Urine Glucose (UA) Urine Blood Urine Nitrite Ur Leukocyte Esterase Urine RBC Urine WBC Random Vancomycin Urine Fentanyl Screen Urine Cocaine Screen Hepatitis C Ab (EIA) 05/05/23 05/05/23 05/05/23 15:25 15:29 17:22 WBC Hgb Hct MCV MCH MPV Immature Gran % (Auto) Neut % (Auto) Lymph % (Auto) Lymph # (Auto) Abs Immat Gran (auto) Absolute Neuts (auto) VBG pH 7.53 H Potassium Chloride Carbon Dioxide Anion Gap Random Glucose Lactic Acid Total Bilirubin AST ALT Albumin Ur Specific [place] >= 1.030 H Urine Protein 300 (3+) H Urine Glucose (UA) 100 H Urine Blood Large (3+) H Urine Nitrite Positive H Ur Leukocyte Esterase Small (1+) H Urine RBC >20 H Urine WBC 21-50 H Random Vancomycin Urine Fentanyl Screen Urine Cocaine Screen Hepatitis C Ab (EIA) Reactive H 05/05/23 05/06/23 05/06/23 17:22 06:33 06:33 WBC 19.4 H Hgb 11.6 L Hct 35.8 L MCV 76.8 L MCH 24.9 L MPV Immature Gran % (Auto) Neut % (Auto) Lymph % (Auto) Lymph # (Auto) Abs Immat Gran (auto) Absolute Neuts (auto) VBG pH Potassium 2.7 L D Chloride 109 H Carbon Dioxide Anion Gap 11 L Random Glucose 145 H Lactic Acid Total Bilirubin AST ALT Albumin Ur Specific [place] Urine Protein Urine Glucose (UA) Urine Blood Urine Nitrite Ur Leukocyte Esterase Urine RBC Urine WBC Random Vancomycin Urine Fentanyl Screen POSITIVE H Urine Cocaine Screen POSITIVE H Hepatitis C Ab (EIA) 05/06/23 13:17 WBC Hgb Hct MCV MCH MPV Immature Gran % (Auto) Neut % (Auto) Lymph % (Auto) Lymph # (Auto) Abs Immat Gran (auto) Absolute Neuts (auto) VBG pH Potassium Chloride Carbon Dioxide Anion Gap Random Glucose Lactic Acid Total Bilirubin AST ALT Albumin Ur Specific [place] Urine Protein Urine Glucose (UA) Urine Blood Urine Nitrite Ur Leukocyte Esterase Urine RBC Urine WBC Random Vancomycin 9.1 L Urine Fentanyl Screen Urine Cocaine Screen Hepatitis C Ab (EIA) Microbiology: Microbiology 05/05/23 17:42 Urine clean catch - Clean Catch Midstream Urine Culture - Preliminary No growth to date. 05/05/23 11:08 Blood - Venous Blood Culture - Preliminary Prelim: GPC Gram Stain only 05/05/23 11:08 Blood - Venous Blood Culture - Preliminary Prelim: GPC Gram Stain only Assessment and Plan (1) Pneumonia: Status: Acute (2) Acute respiratory failure with hypoxia: Status: Acute (3) Gram-positive bacteremia: Status: Acute Plan Impression: 37-year-old gentleman with underlying asthma and polysubstance abuse admitted with acute respiratory failure with hypoxia secondary to community-acquired pneumonia with likely aspiration component and Gram-positive bacteremia, now improving on clindamycin and vancomycin. CT chest reviewed, at this time it is unclear whether there is any abscess component. Recommendations: Agree with current therapeutic regimen clindamycin vancomycin. If fails to improve Clinically, consider repeating CT chest for evaluation of formation of a parapneumonic effusion and/or abscess. Time Spent With Patient Time: Total time managing care of this patient today ____ minutes. Procedures Date of Service Date of Service: 05/06/23
--- NOTE | 2023-05-06 15:56 | MHC.RECOVRN ---
Met with pt in 479 after pt received 20 mg methadone. Pt reports feeling a little better after methadone, however, is still restlesss, diaphoretic, reporting body aches. Pt reports having been on methadone awhile ago, 75 mg through [facility] in [place]. Pt reports the dose was not sufficient so he did not continue. Pt reports using heroin and cocaine x 2 months, since he was released from nursing home in February. Pt would like to continue receiving methadone while here to address withdrawal symptoms. Discussed with pts RN as well as Ondina Coronado APRN.
--- NOTE | 2023-05-06 16:23 | P.CNID_ITS ---
History of Present Illness Data of Consult Service Date: 05/06/23 Requesting physician: Eusebio Rayo Primary Care Provider: None Physician HPI Reason for consult: right lung mass He presents with cough and shortness of breath. He has right lung mass with central air ?cavity. He has lung gram positive cocci. He is homeless. Review of Systems Review of Systems: Yes all other systems are reviewed and are negative PMFSH Past Medical History Medical History Asthma Substance abuse Family History Family history: reviewed and not pertinent Surgical History Surgical History Hx of tonsillectomy Social History Social History Household Members: Unknown / Unable to assess Housing: Homeless Alcohol intake: current Alcohol intake frequency: 3 or more drinks per day Alcohol type: hard liquor Patient Tobacco Use Status: Tobacco use Unknown Substance Use Type: IV Drugs service: No Meds Allergies Allergy/AdvReac Type Severity Reaction Status Date / Time Penicillins Allergy Unknown Verified 06/15/21 16:10 Active Medications: Current Medications Acetaminophen (Acetaminophen 325 Mg Tablet) 650 mg PO Q6H PRN PRN Reason: Pain, Mild (Pain Scale 1-3) Acetaminophen (Acetaminophen 325 Mg Tablet) 975 mg PO QSHIFT [facility] Stop: 05/06/23 22:00 Last Admin: 05/06/23 16:14 Dose: 975 mg Albuterol Sulfate (Albuterol Sulfate (0.083%) 2.5 Mg/3 Ml Vial.Neb) 2.5 mg INHALE Q4H PRN PRN Reason: Shortness of Breath/Wheezing Albuterol/Ipratropium (Albuterol/Iprat 2.5/0.5mg 3 Ml Ampul.Neb) 3 ml INHALE RQ4H WHILE AWAKE [facility] Last Admin: 05/06/23 15:30 Dose: Not Given Docusate Sodium (Docusate Sodium 100 Mg Capsule) 100 mg PO DAILY PRN PRN Reason: Constipation Enoxaparin Sodium (Enoxaparin Sodium 100 Mg/Ml Syringe) 100 mg SUBCUT Q12H [facility] Last Admin: 05/06/23 08:32 Dose: 100 mg Guaifenesin (Guaifenesin La 600 Mg Tab.Er.12h) 1,200 mg PO BID [facility] Last Admin: 05/06/23 08:32 Dose: 1,200 mg Guaifenesin/Dextromethorphan (Guaifenesin Dm 200/20/10 Ml 10 Ml Syrup) 10 ml PO Q4H PRN PRN Reason: Cough Vancomycin HCl 1,500 mg/ (Sodium Chloride) 500 mls @ 333.333 mls/hr IV Q12H [facility] Last Admin: 05/06/23 16:14 Dose: 333.33 mls/hr Clindamycin Phosphate (Cleocin) 600 mg in 50 mls @ 100 mls/hr IV Q8H [facility] Last Infusion: 05/06/23 13:01 Dose: Infused Sodium Chloride (Ns) 1,000 mls @ 125 mls/hr IVCONT .Q8H [facility] Last Admin: 05/06/23 12:17 Dose: 125 mls/hr Ketorolac Tromethamine (Ketorolac Tromethamine 15 Mg/Ml Vial) 15 mg IVPUSH Q6H [facility] Last Admin: 05/06/23 13:08 Dose: 15 mg Ondansetron HCl (Ondansetron Hcl 4 Mg/2 Ml Vial) 4 mg IVPUSH Q8H PRN PRN Reason: Nausea and Vomiting Pharmacy Consult (Consult Rx Perform Med Rec) 1 each MISCELLANE ONCE PRN PRN Reason: Consult order Pharmacy Consult (Consult Rx Vancomycin Dosing) 1 each MISCELLANE DAILY PRN PRN Reason: Consult order Sodium Chloride (0.9 % Sodium Chloride Flush 3 Ml Syringe) 3 ml IVFLUSH QSHIFT [facility] Last Admin: 05/06/23 16:15 Dose: 3 ml Home Medications Medication Instructions Recorded Confirmed Last Taken Type No Known Home Meds 05/05/23 05/05/23 Unknown History Physical Exam Vital Signs: Vital Signs: Last Vital Signs Temp 98.1 F 05/06/23 15:11 Pulse 72 05/06/23 15:11 Resp 20 05/06/23 15:11 BP 150/85 H 05/06/23 15:11 Pulse Ox 95 05/06/23 15:11 O2 Del Method Room Air 05/06/23 15:11 O2 Flow Rate 2 05/05/23 14:36 BMI result Body Mass Index 30.5 Const: General: cooperative HEENT: Head: Yes normal to inspection Face and sinus: Yes normal facial exam Mouth: Normal oral and palatal mucosa present Teeth and gingiva: dentition normal Eyes: General: appearance normal, both eyes and all related structures Pupils: Equal, round and reactive pupils present Chest: Other: decreased breath sounds bases Resp: Effort & Inspection: normal respiratory effort Cardio: Rate: regular rate Rhythm: regular rhythm GI: Palpation (GI): Soft to palpation and nontender : General: Yes no CVA tenderness Back/Spine/Pelvis: Back: no CVA tenderness Skin: General skin exam: no rashes or lesions noted Neuro: General: moves all extremities Cranial nerves: Yes Equal, round and reactive pupils present Extrem: General: Yes normal to inspection Psych: Appearance: grossly normal Results Labs 05/06/23 06:33 05/06/23 06:33 Labs: Short CBC 05/06/23 Range/Units 06:33 WBC 19.4 H (4.8-10.8) X10*3/uL Hgb 11.6 L (14.0-18.0) g/dl Hct 35.8 L (42.0-52.0) % Plt Count 202 (160-400) X10*3/uL BMP 05/06/23 06:33 Sodium 141 Potassium 2.7 L D Chloride 109 H Carbon Dioxide 24 BUN 12 Creatinine 0.70 Calcium 8.7 Urine 05/05/23 Range/Units 17:22 Urine Color Dark Yellow Urine Appearance Cloudy Urine pH 6.0 (5.0-9.0) Ur Specific [place] >= 1.030 H (1.005-1.025) Urine Protein 300 (3+) H (Neg-Trace) mg/dL Urine Glucose (UA) 100 H (Negative) mg/dL Microbiology Microbiology Results: Microbiology 05/05/23 11:08 Blood - Venous Blood Culture - Final Streptococcus pyogenes (Grp A) 05/05/23 11:08 Blood - Venous Blood Culture - Final Streptococcus pyogenes (Grp A) 05/05/23 17:42 Urine clean catch - Clean Catch Midstream Urine Culture - Preliminary No growth to date. Assessment and Plan (1) Gram-positive bacteremia: Status: Acute He has possible staph or strep There is abscess,probable poor dentition (2) Acute respiratory failure with hypoxia: Status: Acute (3) Pneumonia: Status: Acute Plan Vancomycin and Clindamycin cover above. Check echo Await final culture. Time Spent With Patient Time: Total time managing care of this patient today ____ minutes.
[2023-05-06] MEDS: Nicotine 14 MG PATCH.TD24 TRANSDERMA (16:51)
[2023-05-06] MEDS: methADONE HCl 20 MG/2 ML ORAL.CONC 10 MG PO (17:25)
--- NOTE | 2023-05-06 20:05 | HO.ADDICT_ITS ---
History of Present Illness Date of Service: 05/06/2023 Chief Complaint: Multifocal Pneumonia Sepsis Reason for Consult: XOCHITL HPI Narrative: Patient is a 37 year old male currently medically admitted with pneumonia and sepsis Consult requested as UDS + and patient reported substance use. Seen in room 479. Eyes closed, but answering questions--minimal and not relevant responses. Did acknowledge that he has been on methadone in the past. Unable to articulate any symptoms. Agreeable to methadone dose(s). 20mg methadone ordered. data modeling specialist followed up to assess effectiveness, patient reporting that he felt alright , however appearing quite uncomfortable. data modeling specialist reporting patient incontinent of stool during her follow up and appeared to be unaware. Review of Systems Review of Systems Yes Unobtainable due to mental status Diagnostics Vital Signs (24Hr): Vital Signs - 24 hr 05/05/23 23:39 05/06/23 02:33 05/06/23 07:47 Temperature 97.2 F 98.2 F Pulse Rate 98 97 97 Respiratory Rate 18 18 18 Blood Pressure 158/85 H 154/87 H Pulse Oximetry 95 97 Oxygen Delivery Method Room Air Room Air 05/06/23 07:53 05/06/23 10:55 05/06/23 11:36 Temperature 98.0 F 96.9 F Pulse Rate 92 101 H 81 Respiratory Rate 20 18 20 Blood Pressure 157/85 H 142/80 H Pulse Oximetry 96 95 Oxygen Delivery Method Room Air Room Air 05/06/23 15:11 05/06/23 19:18 05/06/23 19:26 Temperature 98.1 F 96.9 F Pulse Rate 72 87 84 Respiratory Rate 20 20 20 Blood Pressure 150/85 H 137/73 Pulse Oximetry 95 95 Oxygen Delivery Method Room Air Room Air BMI result Body Mass Index 30.5 Labs 05/06/23 06:33 05/06/23 06:33 Labs: Laboratory Results - last 48 hr 05/05/23 05/05/23 05/05/23 11:06 11:08 11:08 WBC 27.0 H RBC 5.37 Hgb 13.2 L Hct 41.7 L MCV 77.7 L MCH 24.6 L MCHC 31.7 RDW 14.1 Plt Count 261 MPV 9.3 L Immature Gran % (Auto) 0.8 H Neut % (Auto) 93.2 H Lymph % (Auto) 1.9 L [place] % (Auto) 3.4 Eos % (Auto) 0.4 Baso % (Auto) 0.3 Lymph # (Auto) 0.5 L [place] # (Auto) 0.9 Eos # (Auto) 0.1 Baso # (Auto) 0.1 Abs Immat Gran (auto) 0.21 H Absolute Neuts (auto) 25.1 H Absolute Nucleated RBC 0.000 Nucleated RBC % (auto) 0.0 Smear Tech's Comments VERIFIED VBG pH VBG pCO2 VBG pO2 VBG HCO3 VBG O2 Saturation VBG Base Excess Sodium Potassium Chloride Carbon Dioxide Anion Gap BUN Creatinine Estim Creat Clear Calc Estimated GFR Random Glucose Lactic Acid 2.5 H* Lactic Acid F/U @ 2Hr Calcium Magnesium Total Bilirubin AST ALT Alkaline Phosphatase Troponin I High Sens 6.9 B-Natriuretic Peptide Total Protein Albumin Urine Color Urine Appearance Urine pH Ur Specific [place] Urine Protein Urine Glucose (UA) Urine Ketones Urine Blood Urine Nitrite Ur Leukocyte Esterase Urine RBC Urine WBC Ur Squamous Epith Cells Urine Bacteria Hyaline Casts Random Vancomycin Urine Opiates Screen Urine Fentanyl Screen Ur Barbiturates Screen Ur Phencyclidine Scrn Ur Amphetamines Screen U Benzodiazepines Scrn Urine Cocaine Screen U Marijuana (THC) Screen COVID-19 ([facility]) COVID-19 Clin Com Hepatitis A IgM Ab Hep Bs Antigen Hep Bs Antibody Hep B Core Total Ab Hepatitis C Ab (EIA) HIV 1&2 Ab/P24 Ag 4thGn 05/05/23 05/05/23 05/05/23 11:08 11:09 12:58 WBC RBC Hgb Hct MCV MCH MCHC RDW Plt Count MPV Immature Gran % (Auto) Neut % (Auto) Lymph % (Auto) [place] % (Auto) Eos % (Auto) Baso % (Auto) Lymph # (Auto) [place] # (Auto) Eos # (Auto) Baso # (Auto) Abs Immat Gran (auto) Absolute Neuts (auto) Absolute Nucleated RBC Nucleated RBC % (auto) Smear Tech's Comments VBG pH VBG pCO2 VBG pO2 VBG HCO3 VBG O2 Saturation VBG Base Excess Sodium 139 Potassium 3.4 Chloride 106 Carbon Dioxide 21 L Anion Gap 15 BUN 11 Creatinine 0.67 Estim Creat Clear Calc 171.1 Estimated GFR > 60 Random Glucose 143 H Lactic Acid Lactic Acid F/U @ 2Hr Calcium 8.8 Magnesium 1.9 Total Bilirubin 1.6 H AST 50 H ALT 43 H Alkaline Phosphatase 75 Troponin I High Sens B-Natriuretic Peptide 80 Total Protein 7.4 Albumin 2.8 L Urine Color Urine Appearance Urine pH Ur Specific [place] Urine Protein Urine Glucose (UA) Urine Ketones Urine Blood Urine Nitrite Ur Leukocyte Esterase Urine RBC Urine WBC Ur Squamous Epith Cells Urine Bacteria Hyaline Casts Random Vancomycin Urine Opiates Screen Urine Fentanyl Screen Ur Barbiturates Screen Ur Phencyclidine Scrn Ur Amphetamines Screen U Benzodiazepines Scrn Urine Cocaine Screen U Marijuana (THC) Screen COVID-19 ([facility]) Negative COVID-19 Clin Com See Note Hepatitis A IgM Ab Hep Bs Antigen Hep Bs Antibody Hep B Core Total Ab Hepatitis C Ab (EIA) HIV 1&2 Ab/P24 Ag 4thGn 05/05/23 05/05/23 05/05/23 14:48 15:25 15:29 WBC RBC Hgb Hct MCV MCH MCHC RDW Plt Count MPV Immature Gran % (Auto) Neut % (Auto) Lymph % (Auto) [place] % (Auto) Eos % (Auto) Baso % (Auto) Lymph # (Auto) [place] # (Auto) Eos # (Auto) Baso # (Auto) Abs Immat Gran (auto) Absolute Neuts (auto) Absolute Nucleated RBC Nucleated RBC % (auto) Smear Tech's Comments VBG pH 7.53 H VBG pCO2 26 VBG pO2 226 VBG HCO3 22 VBG O2 Saturation 99.0 VBG Base Excess 1.6 Sodium Potassium Chloride Carbon Dioxide Anion Gap BUN Creatinine Estim Creat Clear Calc Estimated GFR Random Glucose Lactic Acid Lactic Acid F/U @ 2Hr 1.7 Calcium Magnesium Total Bilirubin AST ALT Alkaline Phosphatase Troponin I High Sens B-Natriuretic Peptide Total Protein Albumin Urine Color Urine Appearance Urine pH Ur Specific [place] Urine Protein Urine Glucose (UA) Urine Ketones Urine Blood Urine Nitrite Ur Leukocyte Esterase Urine RBC Urine WBC Ur Squamous Epith Cells Urine Bacteria Hyaline Casts Random Vancomycin Urine Opiates Screen Urine Fentanyl Screen Ur Barbiturates Screen Ur Phencyclidine Scrn Ur Amphetamines Screen U Benzodiazepines Scrn Urine Cocaine Screen U Marijuana (THC) Screen COVID-19 ([facility]) COVID-19 Clin Com Hepatitis A IgM Ab Nonreactive Hep Bs Antigen Negative Hep Bs Antibody NONREACTIVE Hep B Core Total Ab Nonreactive Hepatitis C Ab (EIA) Reactive H HIV 1&2 Ab/P24 Ag 4thGn 05/05/23 05/05/23 05/05/23 17:22 17:22 Unknown WBC RBC Hgb Hct MCV MCH MCHC RDW Plt Count MPV Immature Gran % (Auto) Neut % (Auto) Lymph % (Auto) [place] % (Auto) Eos % (Auto) Baso % (Auto) Lymph # (Auto) [place] # (Auto) Eos # (Auto) Baso # (Auto) Abs Immat Gran (auto) Absolute Neuts (auto) Absolute Nucleated RBC Nucleated RBC % (auto) Smear Tech's Comments VBG pH VBG pCO2 VBG pO2 VBG HCO3 VBG O2 Saturation VBG Base Excess Sodium Potassium Chloride Carbon Dioxide Anion Gap BUN Creatinine Estim Creat Clear Calc Estimated GFR Random Glucose Lactic Acid Lactic Acid F/U @ 2Hr Calcium Magnesium Total Bilirubin AST ALT Alkaline Phosphatase Troponin I High Sens B-Natriuretic Peptide Total Protein Albumin Urine Color Dark Yellow Urine Appearance Cloudy Urine pH 6.0 Ur Specific [place] >= 1.030 H Urine Protein 300 (3+) H Urine Glucose (UA) 100 H Urine Ketones 15 Urine Blood Large (3+) H Urine Nitrite Positive H Ur Leukocyte Esterase Small (1+) H Urine RBC >20 H Urine WBC 21-50 H Ur Squamous Epith Cells 3-5 Urine Bacteria Trace Hyaline Casts 0-2 Random Vancomycin Urine Opiates Screen Not Detected Urine Fentanyl Screen POSITIVE H Ur Barbiturates Screen Not Detected Ur Phencyclidine Scrn Not Detected Ur Amphetamines Screen Not Detected U Benzodiazepines Scrn Not Detected Urine Cocaine Screen POSITIVE H U Marijuana (THC) Screen Not Detected COVID-19 ([facility]) COVID-19 Clin Com Hepatitis A IgM Ab Hep Bs Antigen Hep Bs Antibody Hep B Core Total Ab Hepatitis C Ab (EIA) HIV 1&2 Ab/P24 Ag 4thGn Nonreactive 05/06/23 05/06/23 05/06/23 06:33 06:33 13:17 WBC 19.4 H RBC 4.66 Hgb 11.6 L Hct 35.8 L MCV 76.8 L MCH 24.9 L MCHC 32.4 RDW 14.0 Plt Count 202 MPV 9.7 Immature Gran % (Auto) Neut % (Auto) Lymph % (Auto) [place] % (Auto) Eos % (Auto) Baso % (Auto) Lymph # (Auto) [place] # (Auto) Eos # (Auto) Baso # (Auto) Abs Immat Gran (auto) Absolute Neuts (auto) Absolute Nucleated RBC 0.000 Nucleated RBC % (auto) 0.0 Smear Tech's Comments VBG pH VBG pCO2 VBG pO2 VBG HCO3 VBG O2 Saturation VBG Base Excess Sodium 141 Potassium 2.7 L D Chloride 109 H Carbon Dioxide 24 Anion Gap 11 L BUN 12 Creatinine 0.70 Estim Creat Clear Calc 170.0 Estimated GFR > 60 Random Glucose 145 H Lactic Acid Lactic Acid F/U @ 2Hr Calcium 8.7 Magnesium Total Bilirubin AST ALT Alkaline Phosphatase Troponin I High Sens B-Natriuretic Peptide Total Protein Albumin Urine Color Urine Appearance Urine pH Ur Specific [place] Urine Protein Urine Glucose (UA) Urine Ketones Urine Blood Urine Nitrite Ur Leukocyte Esterase Urine RBC Urine WBC Ur Squamous Epith Cells Urine Bacteria Hyaline Casts Random Vancomycin 9.1 L Urine Opiates Screen Urine Fentanyl Screen Ur Barbiturates Screen Ur Phencyclidine Scrn Ur Amphetamines Screen U Benzodiazepines Scrn Urine Cocaine Screen U Marijuana (THC) Screen COVID-19 ([facility]) COVID-19 Clin Com Hepatitis A IgM Ab Hep Bs Antigen Hep Bs Antibody Hep B Core Total Ab Hepatitis C Ab (EIA) HIV 1&2 Ab/P24 Ag 4thGn Imaging Radiology Impressions: ITS Impressions Chest X-Ray 05/05/23 10:50 IMPRESSION: Prominent right lower and mild right upper lobe patchy airspace opacities, consistent with multifocal pneumonia. Chest CT 05/05/23 16:34 IMPRESSION: Lack of intravenous contrast. Given this abscess formation is not adequately evaluated for. There is a dense infiltrate in the right middle lobe as described with adjacent pleural collection and abscess in this region cannot be excluded. If further evaluation is warranted recommendation is post contrast study. Otherwise scattered areas of opacities in the lungs consistent with patchy areas of infiltrate. There is a small dependent right effusion. Increased central adenopathy may be reactive. Follow-up is recommended here Venous Duplex 05/05/23 20:24 IMPRESSION: Positive for DVT in the brachial and radial veins as well as superficial thrombophlebitis in the cephalic and median cubital vein. Mental Status Exam Mental Status Exam Level of Consciousness: Lethargic Medications Medications Current Medications Acetaminophen (Acetaminophen 325 Mg Tablet) 650 mg PO Q6H PRN PRN Reason: Pain, Mild (Pain Scale 1-3) Acetaminophen (Acetaminophen 325 Mg Tablet) 975 mg PO QSHIFT JADE Stop: 05/06/23 22:00 Last Admin: 05/06/23 16:14 Dose: 975 mg Albuterol Sulfate (Albuterol Sulfate (0.083%) 2.5 Mg/3 Ml Vial.Neb) 2.5 mg INHALE Q4H PRN PRN Reason: Shortness of Breath/Wheezing Albuterol/Ipratropium (Albuterol/Iprat 2.5/0.5mg 3 Ml Ampul.Neb) 3 ml INHALE RQ4H WHILE AWAKE [facility] Last Admin: 05/06/23 19:15 Dose: 3 ml Docusate Sodium (Docusate Sodium 100 Mg Capsule) 100 mg PO DAILY PRN PRN Reason: Constipation Enoxaparin Sodium (Enoxaparin Sodium 100 Mg/Ml Syringe) 100 mg SUBCUT Q12H [facility] Last Admin: 05/06/23 19:35 Dose: 100 mg Guaifenesin (Guaifenesin La 600 Mg Tab.Er.12h) 1,200 mg PO BID [facility] Last Admin: 05/06/23 19:32 Dose: 1,200 mg Guaifenesin/Dextromethorphan (Guaifenesin Dm 200/20/10 Ml 10 Ml Syrup) 10 ml PO Q4H PRN PRN Reason: Cough Vancomycin HCl 1,500 mg/ (Sodium Chloride) 500 mls @ 333.333 mls/hr IV Q12H [facility] Last Infusion: 05/06/23 18:25 Dose: Infused Clindamycin Phosphate (Cleocin) 600 mg in 50 mls @ 100 mls/hr IV Q8H [facility] Last Infusion: 05/06/23 18:26 Dose: Infused Sodium Chloride (Ns) 1,000 mls @ 125 mls/hr IVCONT .Q8H [facility] Last Admin: 05/06/23 19:33 Dose: 125 mls/hr Ketorolac Tromethamine (Ketorolac Tromethamine 15 Mg/Ml Vial) 15 mg IVPUSH Q6H [facility] Last Admin: 05/06/23 19:32 Dose: 15 mg Methadone HCl (Methadone Hcl 20 Mg/2 Ml Oral.Conc) 40 mg PO DAILY [facility] Nicotine (Nicotine 14 Mg Patch.Td24) 14 mg TRANSDERMA DAILY [facility] Last Admin: 05/06/23 16:51 Dose: 14 mg Ondansetron HCl (Ondansetron Hcl 4 Mg/2 Ml Vial) 4 mg IVPUSH Q8H PRN PRN Reason: Nausea and Vomiting Pharmacy Consult (Consult Rx Perform Med Rec) 1 each MISCELLANE ONCE PRN PRN Reason: Consult order Pharmacy Consult (Consult Rx Vancomycin Dosing) 1 each MISCELLANE DAILY PRN PRN Reason: Consult order Sodium Chloride (0.9 % Sodium Chloride Flush 3 Ml Syringe) 3 ml IVFLUSH QSHIFT [facility] Last Admin: 05/06/23 19:43 Dose: Not Given Allergies Allergies Allergy/AdvReac Type Severity Reaction Status Date / Time Penicillins Allergy Unknown Verified 06/15/21 16:10 Assessment & Plan Assessment & Plan (1) Opioid use disorder: Status: Acute Code(s): F11.90 - Opioid use, unspecified, uncomplicated Assessment and Plan: * based on history and evaluation possibly experiencing opioid withdrawal * methadone 30mg today and 40mg tomorrow * follow up in AM. Total time managing care of this patient today _40___ minutes. PMFSH Past Medical History Medical History Asthma Substance abuse Family History Family history: reviewed and not pertinent Surgical History Surgical History Hx of tonsillectomy Social History Social History Household Members: Unknown / Unable to assess Housing: Homeless Alcohol intake: current Alcohol intake frequency: 3 or more drinks per day Alcohol type: hard liquor Patient Tobacco Use Status: Tobacco use Unknown Substance Use Type: IV Drugs service: No
[2023-05-07] VITALS (8 sets, daily range): BP systolic 133–153; BP diastolic 70–86; PULSE 78–92; RESP 16–20; TEMP 36.6–37.3; O2SAT 93–98
[2023-05-07] MEDS: vancomycin HCL 1,500 MG in 0.9 % Sodium Chloride 500 ML 333.33 MG IV (03:10)
[2023-05-07] MEDS: Clindamycin Phosphate/D5W 600 MG/50 ML PIGGYBACK 100 MG IV ×3 (03:13→20:10)
[2023-05-07] MEDS: 0.9 % Sodium Chloride 1,000 ML 125 ML IVCONT ×2 (03:14→12:16)
[2023-05-07] MEDS: Ketorolac Tromethamine 15 MG/ML VIAL IVPUSH ×4 (03:14→20:22)
[2023-05-07 06:16] LABS: Hematocrit 34.3 % (42.0-52.0); Mean Corpuscular HGB Conc 32.1 g/dl (31.0-36.0); Mean Corpuscular Hemoglobin 24.8 pg (27.0-33.0); Mean Corpuscular Volume 77.3 fL (80.0-98.0); Mean Platelet Volume 10.2 fL (9.4-12.4); Platelet Count 205 X10*3/uL (160-400); Red Blood Count 4.44 X10*6/uL (4.60-5.80); Red Cell Distribution Width 14.2 % (11.0-16.0); White Blood Count 17.1 X10*3/uL (4.8-10.8)
[2023-05-07 06:34] LABS: Alanine Aminotransferase 26 U/L (0-40); Albumin Level 2.2 g/dL (3.5-5.0); Alkaline Phosphatase 66 U/L (39-117); Anion Gap 10 (12-20); Aspartate Amino Transferase 24 U/L (5-37); Bilirubin Direct 0.4 mg/dL (0.0-0.5); Blood Urea Nitrogen 11 mg/dL (9-16); Calcium 8.2 mg/dL (8.4-10.2); Carbon Dioxide 21 mmol/L (22-29); Chloride 113 mmol/L (96-108); Creatinine Clr Calc Pharmacy 188.9; Estimated Glomerular Filt Rate > 60; Glucose Random 97 mg/dL (60-115); Potassium 2.9 mmol/L (3.3-5.1); Sodium 141 mmol/L (135-145); Total Protein 6.3 g/dL (6.5-8.0)
--- NOTE | 2023-05-07 07:00 | CA_ITS ---
Transthoracic Echocardiogram Patient (Last, First, Middle): Quan Riggs, Gender: Male Date of : 1985 Age: 37 Procedure Date: 05/07/2023 Procedure Type: Transthoracic Echocardiogram Location: [facility] [place] Height: 177.8 cm Weight: 96.16 kg BSA: 2.14 m2 Heart Rate: bpm BP: 134 / 75 mmHg Desilverizer: TO Referring MD: Ayana Villaseñor MD Symptoms: strep bacteremia Study Quality: Adequate Conclusions: - Normal left ventricular size, thickness, systolic function, and wall motion. The visually estimated ejection fraction is between 65-70%. Diastolic function is normal for age. - Normal right ventricular cavity size and systolic function. - No obvious valvular pathology. - There is mild dilatation of the sinuses of Valsalva measuring 3.83 cm and mild dilatation of the ascending aorta measuring 3.90 cm. Findings Left Ventricle Normal left ventricular size, thickness, systolic function, and wall motion. The visually estimated ejection fraction is between 65-70%. Diastolic function is normal for age. Right Ventricle Normal right ventricular cavity size and systolic function. Atria The left atrium is mildly dilated. Aortic Valve Normal aortic valve structure and function. There is no aortic valve stenosis. There is no aortic valve regurgitation. Mitral Valve Normal mitral valve structure and function. There is no mitral valve regurgitation. There is no mitral valve stenosis. Pulmonic Valve Normal pulmonic valve structure and function. There is no pulmonic valve regurgitation. Tricuspid Valve Normal tricuspid valve structure and function. There is no tricuspid valve regurgitation. Tricuspid regurgitation envelope is inadequate for calculation of right ventricular systolic pressure. Normal right atrial pressure. Great Vessels There is mild dilatation of the sinuses of Valsalva measuring 3.83 cm and mild dilatation of the ascending aorta measuring 3.90 cm. The visualized portions of the pulmonary artery and branches are normal. Venous The inferior vena cava is normal in size and collapses greater than 50% with inspiration. Pericardium/Pleural There is no evidence of pericardial effusion. Prior Study Comparison No prior study available for comparison. Measurements 2D Linear Measurements IVSd: 1.14 0.6-0.9/0.6-1.0 cm LVIDd: 5.77 3.9-5.3/4.2-5.9 cm LVIDd Index: 2.70 2.4-3.2/2.2-3.1 cm/m2 LVIDs: 3.94 2.0-3.6 cm LVPWd: 0.91 0.7-1.1 cm LA Diam: 3.70 2.7-3.8/3.0-4.0 cm LAIDs Index: 1.73 1.5-2.3 cm/m2 LV Mass: 297.56 67-162/88-224 g LV Mass Index: 139.04 43-95/49-115 g/m2 LVOT Diam: 2.50 3.0+(-)1.3 cm 2D Systolic Function EF 4C: 57.90 >55% EF 2C: 59.60 >55% EF BiP: 57.00 >55% Mitral Valve MV Pk E: 0.99 MV PK A: 0.76 MV Decel Time: 207.00 E/A: 1.30 E'Lateral: 13.60 E'Medial: 8.05 E/E' Med: 12.30 E/E' Lat: 7.30 PHT: 61.00 MVA PHT: 3.61 Decel [place]: 4.79 Aortic Valve AoV Pk Fco: 1.51 AoV Mn Fco: 1.07 AoV VTI: 0.27 AoV Pk Grad: 9.00 Aov Mn Grad: 5.00 SHAE Cont.VTI: 5.31 LVOT LVOT Pk Fco: 1.51 LVOT Mn Fco: 0.96 LVOT VTI: 0.29 LVOT Pk Grad: 9.00 LVOT Mn Grad: 4.00 LVOT Diam: 2.50 LVOT Area: 4.91 Diastolic Function MV Pk E: 0.99 MV Pk A: 0.76 E/A: 1.30 E'Medial: 8.05 E/E' Med: 12.30 E' Laterial: 13.60 E/E' Lat: 7.30 Right Ventricle TAPSE (mm): 27.70 TVS' Fco: 14.30 Tricuspid Valve RA Press: 8.00 Great Vessels Aorta Sinus of Valsalva: 3.83 2.0-3.5 cm Ao Asc: 3.90 2.1-3.4 cm Updated in Other Vendor System with Status of Final Delio Walls MD electronically signed on 05/08/2023 7:05:13 PM with status of Final
[2023-05-07] MEDS: methADONE HCl 20 MG/2 ML ORAL.CONC 40 MG PO (07:47)
[2023-05-07] MEDS: Enoxaparin Sodium 100 MG/ML SYRINGE SUBCUT ×2 (07:48→20:23)
[2023-05-07] MEDS: Nicotine 14 MG PATCH.TD24 TRANSDERMA (07:48)
[2023-05-07] MEDS: guaiFENesin LA 600 MG TAB.ER.12H 1200 MG PO ×2 (07:49→20:24)
[2023-05-07] MEDS: 0.9 % Sodium Chloride Flush 3 ML SYRINGE IVFLUSH ×3 (07:50→20:29)
[2023-05-07] MEDS: Albuterol/Iprat 2.5/0.5MG 3 ML AMPUL.NEB INHALE ×2 (07:59→19:01)
--- NOTE | 2023-05-07 10:59 | P.PNTS_ITS ---
Subjective Subjective Date of Service: 05/07/23 Interval history: PATIENT FEELS BETTER. NO ACUTE RESPIRATORY SYMPTOMS. TOLERATING DIET. Occasional productive cough of dark sputum Physical Exam Vital Signs: Vital Signs: Last Vital Signs Temp 98.1 F 05/07/23 08:00 Pulse 84 05/07/23 08:01 Resp 16 05/07/23 08:01 BP 134/75 05/07/23 08:00 Pulse Ox 93 05/07/23 08:00 O2 Del Method Room Air 05/07/23 08:00 O2 Flow Rate 2 05/05/23 14:36 BMI result Body Mass Index 30.5 Chest: Other: Status quo. Procedures Date of Service Date of Service: 05/07/23 Progress Note: A&P Assessment and plan (1) Pneumonia: Status: Acute Plan at present, patient clinically improving. No acute thoracic surgical issues. If patient has setback or progression of symptoms, as noted pulmonary consult, consider repeat CT scan with IV contrast to rule out progression to lung absce ss. . Will follow-up p.r.n. Time Spent With Patient Time: Total time managing care of this patient today ____ minutes. Quality Stroke Does the patient have a stroke diagnosis?: No VTE Prior VTE?: No VTE Risk Level:: Medical - moderate - high VTE Device Contraindication: Treatment Not Indicated VTE Drug Contraindication: N/A - Med Ordered
[2023-05-07] MEDS: Potassium Chloride ER 20 MEQ TAB.ER.PRT 40 MEQ PO (12:08)
[2023-05-07 13:24] LABS: Vancomycin Random 10.2 mcg/mL (15-20)
--- NOTE | 2023-05-07 13:30 | HE.PHANOTE ---
RE MELISSA INCREASING DOSE TO 1250 Q8H. SUSPECTED AUC 515, TROUGH 14.4. NEXT LEVEL 05/08@1300 ANTOINETTE
--- NOTE | 2023-05-07 14:26 | P.PNIM_ITS ---
Subjective Subjective Date of Service: 05/07/23 Interval History: Acute left upper extremityDVT?,Severe Sepsis 2/2 GPC bacteremia?,? pneumonia Review of Systems has cough ,sob improving denies any fever or chills Physical Exam Vital Signs: Vital Signs: Last Vital Signs Temp 98.6 F 05/07/23 11:21 Pulse 79 05/07/23 11:21 Resp 20 05/07/23 11:21 BP 146/78 H 05/07/23 11:21 Pulse Ox 95 05/07/23 11:21 O2 Del Method Room Air 05/07/23 11:21 O2 Flow Rate 2 05/05/23 14:36 BMI result Body Mass Index 30.5 Awake with stimulation, disheveled, ill looking Cvs : RRR, no JVP, no lower extremity edema chest : air entry decreased on RLL,? basal crackles, wheezes or rhonchi Gastrointestinal:? soft, nd, Normal bowel sounds, Non tender Skin : Warm, Dry Neurological : Alert & oriented x3, No focal deficit Objective Data Active Medications Acetaminophen (Acetaminophen 325 Mg Tablet) 650 mg PO Q6H PRN PRN Reason: Pain, Mild (Pain Scale 1-3) Albuterol Sulfate (Albuterol Sulfate (0.083%) 2.5 Mg/3 Ml Vial.Neb) 2.5 mg INHALE Q4H PRN PRN Reason: Shortness of Breath/Wheezing Albuterol/Ipratropium (Albuterol/Iprat 2.5/0.5mg 3 Ml Ampul.Neb) 3 ml INHALE RQ4H WHILE AWAKE [facility] Last Admin: 05/07/23 12:26 Dose: Not Given Documented By: FABIO Non-Admin Reason: Patient Refused Docusate Sodium (Docusate Sodium 100 Mg Capsule) 100 mg PO DAILY PRN PRN Reason: Constipation Enoxaparin Sodium (Enoxaparin Sodium 100 Mg/Ml Syringe) 100 mg SUBCUT Q12H [facility] Last Admin: 05/07/23 07:48 Dose: 100 mg Documented By: ALLISON Guaifenesin (Guaifenesin La 600 Mg Tab.Er.12h) 1,200 mg PO BID [facility] Last Admin: 05/07/23 07:49 Dose: 1,200 mg Documented By: ALLISON Schmidtfenesin/Dextromethorphan (Guaifenesin Dm 200/20/10 Ml 10 Ml Syrup) 10 ml PO Q4H PRN PRN Reason: Cough Clindamycin Phosphate (Cleocin) 600 mg in 50 mls @ 100 mls/hr IV Q8H [facility] Last Infusion: 05/07/23 12:54 Dose: 0 mls/hr Documented By: ALLISON Sodium Chloride (Ns) 1,000 mls @ 125 mls/hr IVCONT .Q8H [facility] Last Admin: 05/07/23 12:16 Dose: 125 mls/hr Documented By: ALLISON Vancomycin HCl 1,250 mg/ (Sodium Chloride) 250 mls @ 166.667 mls/hr IV Q8H [facility] Ketorolac Tromethamine (Ketorolac Tromethamine 15 Mg/Ml Vial) 15 mg IVPUSH Q6H [facility] Last Admin: 05/07/23 12:25 Dose: 15 mg Documented By: ALLISON Methadone HCl (Methadone Hcl 20 Mg/2 Ml Oral.Conc) 40 mg PO DAILY [facility] Last Admin: 05/07/23 07:47 Dose: 40 mg Documented By: ALLISON Nicotine (Nicotine 14 Mg Patch.Td24) 14 mg TRANSDERMA DAILY [facility] Last Admin: 05/07/23 07:48 Dose: 14 mg Documented By: ALLISON Ondansetron HCl (Ondansetron Hcl 4 Mg/2 Ml Vial) 4 mg IVPUSH Q8H PRN PRN Reason: Nausea and Vomiting Pharmacy Consult (Consult Rx Perform Med Rec) 1 each MISCELLANE ONCE PRN PRN Reason: Consult order Pharmacy Consult (Consult Rx Vancomycin Dosing) 1 each MISCELLANE DAILY PRN PRN Reason: Consult order Sodium Chloride (0.9 % Sodium Chloride Flush 3 Ml Syringe) 3 ml IVFLUSH QSHIFT [facility] Last Admin: 05/07/23 07:50 Dose: 3 ml Documented By: ALLISON Labs 05/07/23 05:59 05/07/23 05:59 Labs: Laboratory Results - last 24 hr 05/07/23 05/07/23 05/07/23 05:59 05:59 12:51 MCV 77.3 L MCH 24.8 L MCHC 32.1 RDW 14.2 Plt Count 205 MPV 10.2 Absolute Nucleated RBC 0.000 Nucleated RBC % (auto) 0.0 Anion Gap 10 L Estim Creat Clear Calc 188.9 Estimated GFR > 60 Random Glucose 97 Calcium 8.2 L Total Bilirubin 1.0 Direct Bilirubin 0.4 AST 24 ALT 26 Alkaline Phosphatase 66 Total Protein 6.3 L Albumin 2.2 L Random Vancomycin 10.2 L Microbiology Microbiology Results: Microbiology 05/05/23 11:08 Blood Culture - Final Blood - Venous Streptococcus pyogenes (Grp A) 05/05/23 17:42 Urine Culture - Final Urine clean catch - Clean Catch Midstream No growth. 05/05/23 11:08 Blood Culture - Final Blood - Venous Streptococcus pyogenes (Grp A) Assessment and Plan (1) Sepsis: Status: Acute (2) Multifocal pneumonia: Status: Acute (3) Drug abuse: Status: Acute Plan Pt is a 37-year-old male with no significant PMH not on home medication who presents to the ED with?right-sided pleuritic chest pain and mostly nonproductiv e cough for the last couple of days. Patient is homeless and has been feeling generally unwell the past few days. Presents to ED today after significant worsening of symptoms. Pt will be admitted to the hospital for treatment of sepsis in the setting of multifocal pneumonia. Severe Sepsis 2/2 GPC bacteremia in the setting of multifocal pneumonia and possible lung abscess CT as reported Blood cultures growing strep pyogenous ,repeat blood cultures pending vanco trough -10.2 today Continue Clindamycin(started 05/05) and Vancomycin(started 05/07). ID, Thoracic and Pulm consults repeat blood cultures follow vancomycin trough Transaminitislikely 2/2 sepsis improved Patient not complaining of abdominal pain, denies alcohol use Follow CMP Nicotine dependence smokes 1 pack of cigarettes a day Nicotine replacement therapy Smoking cessation encouraged Drug abuse reports injecting heroin monitor for withdrawal addiction team eval Full Code DVT Prophylaxis: Lovenox ongoing hospitalization need of bacteremia, community-acquired multifocal pneumonia and possible abscess-on iv antibiotics ,blood cultures repeat pending Time Spent With Patient Time: Total time managing care of this patient today ____ minutes. Quality Stroke Does the patient have a stroke diagnosis?: No VTE Prior VTE?: No VTE Risk Level:: Medical - moderate - high VTE Device Contraindication: Treatment Not Indicated VTE Drug Contraindication: N/A - Med Ordered
[2023-05-07] MEDS: vancomycin HCL 1,250 MG in 0.9 % Sodium Chloride 250 ML 166.67 MG IV (14:50)
[2023-05-07] MEDS: Zolpidem Tartrate 5 MG TABLET PO (21:31)
[2023-05-08] VITALS (9 sets, daily range): BP systolic 130–156; BP diastolic 66–81; PULSE 71–98; RESP 14–20; TEMP 36.6–37.3; O2SAT 92–98
[2023-05-08] MEDS: vancomycin HCL 1,250 MG in 0.9 % Sodium Chloride 250 ML 166.67 MG IV ×2 (00:13→08:52)
[2023-05-08] MEDS: Ketorolac Tromethamine 15 MG/ML VIAL IVPUSH ×2 (02:19→08:50)
[2023-05-08] MEDS: Clindamycin Phosphate/D5W 600 MG/50 ML PIGGYBACK 100 MG IV ×3 (02:27→17:59)
[2023-05-08] MEDS: Nicotine 14 MG PATCH.TD24 TRANSDERMA (06:19)
[2023-05-08 07:05] LABS: Creatinine Clr Calc Pharmacy 201.7; Estimated Glomerular Filt Rate > 60
[2023-05-08] MEDS: Enoxaparin Sodium 100 MG/ML SYRINGE SUBCUT ×2 (08:49→20:20)
[2023-05-08] MEDS: guaiFENesin LA 600 MG TAB.ER.12H 1200 MG PO ×2 (08:49→20:20)
[2023-05-08] MEDS: 0.9 % Sodium Chloride Flush 3 ML SYRINGE IVFLUSH ×3 (08:50→20:21)
[2023-05-08] MEDS: methADONE HCl 20 MG/2 ML ORAL.CONC 50 MG PO (08:50)
[2023-05-08] MEDS: Potassium Chloride ER 20 MEQ TAB.ER.PRT 40 MEQ PO (10:35)
[2023-05-08] MEDS: oxyCODONE HCl Immed Release 5 MG TABLET 10 MG PO ×3 (11:57→23:51)
[2023-05-08] MEDS: Albuterol/Iprat 2.5/0.5MG 3 ML AMPUL.NEB INHALE ×3 (12:30→18:55)
--- NOTE | 2023-05-08 13:37 | MHC.CM.PN ---
EMR REVIEWED, BLOOD CULTURES STILL PENDING, PT CONT'S TO NEED [facility] AND [facility] [facility] OFFERING, CM WILL DISCUSS W/PT AND DEPENDING ON PREFERENCE WILL LET RECOVERY KNOW WHICH METHADONE CLINIC PT WILL NEED TO BE SET UP WITH, CM WILL CON TO FOLLOW D/C NEEDS.
[2023-05-08 13:47] LABS: Vancomycin Random 15.7 mcg/mL (15-20)
[2023-05-08] MEDS: cefTRIAXone sodium 2 GM in 0.9 % Sodium Chloride 50 ML IV (14:07)
--- NOTE | 2023-05-08 15:02 | MHC.RECOVRN ---
Met with pt in 479 to follow up and assess withdrawal. Pt sitting in chair, awake, alert, easily engages in conversation, more engageable than previous encounters. Pt appears to be feeling better, not diaphoretic or grimacing. Pt reports withdrawal has improved, no longer having loose stools, however, continues to feel body aches and has cravings. Pt would like to increase methadone dose. Pt denies other questions or concerns for t/w. Discussed with Ondina Coronado APRN.
--- NOTE | 2023-05-08 15:35 | MHC.CM.PN ---
PT ACCEPTING BED AT [facility], RECOVERY TEAM NOTIFIED AND WILL SET UP METHADONE AT [facility] PER [facility] REQUEST. ANTIC PT CAN HAVE PICC LINE PLACED TOMORROW AND D/C LATER IN DAY, CM WILL CONT TO FOLLOW.
--- NOTE | 2023-05-08 15:36 | P.PNIM_ITS ---
Subjective Subjective Date of Service: 05/08/23 Interval History: Acute left upper extremityDVT?,Severe Sepsis 2/2 GPC bacteremia?,? pneumonia Review of Systems has cough ,sob improving denies any fever or chills Physical Exam Vital Signs: Vital Signs: Last Vital Signs Temp 97.9 F 05/08/23 11:25 Pulse 75 05/08/23 12:32 Resp 16 05/08/23 12:32 BP 141/74 H 05/08/23 11:25 Pulse Ox 95 05/08/23 11:25 O2 Del Method Room Air 05/08/23 11:25 O2 Flow Rate 2 05/05/23 14:36 BMI result Body Mass Index 30.5 ?Awake with stimulation, disheveled, ill looking Cvs : RRR, no JVP, no lower extremity edema chest : air entry decreased on RLL,? basal crackles, wheezes or rhonchi Gastrointestinal:? soft, nd, Normal bowel sounds, Non tender Skin : Warm, Dry Neurological : Alert & oriented x3, No focal deficit Objective Data Active Medications Acetaminophen (Acetaminophen 325 Mg Tablet) 650 mg PO Q6H PRN PRN Reason: Pain, Mild (Pain Scale 1-3) Albuterol Sulfate (Albuterol Sulfate (0.083%) 2.5 Mg/3 Ml Vial.Neb) 2.5 mg INHALE Q4H PRN PRN Reason: Shortness of Breath/Wheezing Albuterol/Ipratropium (Albuterol/Iprat 2.5/0.5mg 3 Ml Ampul.Neb) 3 ml INHALE RQ4H WHILE AWAKE [facility] Last Admin: 05/08/23 12:30 Dose: 3 ml Documented By: FABIO Docusate Sodium (Docusate Sodium 100 Mg Capsule) 100 mg PO DAILY PRN PRN Reason: Constipation Enoxaparin Sodium (Enoxaparin Sodium 100 Mg/Ml Syringe) 100 mg SUBCUT Q12H [facility] Last Admin: 05/08/23 08:49 Dose: 100 mg Documented By: NINOSKA Guaifenesin (Guaifenesin La 600 Mg Tab.Er.12h) 1,200 mg PO BID [facility] Last Admin: 05/08/23 08:49 Dose: 1,200 mg Documented By: NINOSKA Mcneillaifenesin/Dextromethorphan (Guaifenesin Dm 200/20/10 Ml 10 Ml Syrup) 10 ml PO Q4H PRN PRN Reason: Cough Clindamycin Phosphate (Cleocin) 600 mg in 50 mls @ 100 mls/hr IV Q8H [facility] Last Infusion: 05/08/23 12:35 Dose: 0 mls/hr Documented By: NINOSKA Ceftriaxone Sodium 2 gm/ (Sodium Chloride) 50 mls @ 100 mls/hr IV Q24H [facility] Last Infusion: 05/08/23 14:48 Dose: 0 mls/hr Documented By: NINOSKA Methadone HCl (Methadone Hcl 20 Mg/2 Ml Oral.Conc) 10 mg PO DAILY PRN PRN Reason: Opiate Withdrawal Methadone HCl (Methadone Hcl 20 Mg/2 Ml Oral.Conc) 50 mg PO DAILY [facility] Last Admin: 05/08/23 08:50 Dose: 50 mg Documented By: NINOSKA Nicotine (Nicotine 14 Mg Patch.Td24) 14 mg TRANSDERMA DAILY [facility] Last Admin: 05/08/23 06:19 Dose: 14 mg Documented By: MARIBEL Ondansetron HCl (Ondansetron Hcl 4 Mg/2 Ml Vial) 4 mg IVPUSH Q8H PRN PRN Reason: Nausea and Vomiting Oxycodone HCl (Oxycodone Hcl Immed Release 5 Mg Tablet) 10 mg PO Q6H PRN PRN Reason: Pain, Mild (Pain Scale 1-3) Last Admin: 05/08/23 11:57 Dose: 10 mg Documented By: NINOSKA Pharmacy Consult (Consult Rx Perform Med Rec) 1 each MISCELLANE ONCE PRN PRN Reason: Consult order Sodium Chloride (0.9 % Sodium Chloride Flush 3 Ml Syringe) 3 ml IVFLUSH QSHIFT [facility] Last Admin: 05/08/23 14:07 Dose: 3 ml Documented By: NINOSKA Zolpidem Tartrate (Zolpidem Tartrate 5 Mg Tablet) 5 mg PO BEDTIME PRN PRN Reason: Insomnia Last Admin: 05/07/23 21:31 Dose: 5 mg Documented By: MARIBEL Labs 05/07/23 05:59 05/08/23 06:05 Labs: Laboratory Results - last 24 hr 05/08/23 05/08/23 06:05 13:13 Estim Creat Clear Calc 201.7 Estimated GFR > 60 Random Vancomycin 15.7 Microbiology Microbiology Results: Microbiology 05/06/23 13:17 Blood Culture - Preliminary Blood - Venous No growth after 48 hours. 05/06/23 13:17 Blood Culture - Preliminary Blood - Venous No growth after 48 hours. 05/05/23 11:08 Blood Culture - Final Blood - Venous Streptococcus pyogenes (Grp A) Assessment and Plan (1) Sepsis: Status: Acute (2) Multifocal pneumonia: Status: Acute (3) Drug abuse: Status: Acute Plan Pt is a 37-year-old male with no significant PMH not on home medication who presents to the ED with?right-sided pleuritic chest pain and mostly nonproductive cough for the last couple of days. Patient is homeless and has been feeling generally unwell the past few days. Presents to ED today after significant worsening of symptoms. Pt will be admitted to the hospital for treatment of sepsis in the setting of multifocal pneumonia. Severe Sepsis 2/2 GPC bacteremia in the setting of multifocal pneumonia and possible lung abscess CT as reported Blood cultures growing strep pyogenous ,repeat blood cultures pending Continue Clindamycin(started 05/05) and Vancomycin(started 05/07)taken off 05/08, now added ceftriaxone . ID, Thoracic and Pulm consults-continue iv antibiotics -need to determine duration of antibiotics, if patient condition worsen and we will do further chest imaging. Transaminitislikely 2/2 sepsis improved Patient not complaining of abdominal pain, denies alcohol use Follow CMP Nicotine dependence smokes 1 pack of cigarettes a day Nicotine replacement therapy Smoking cessation encouraged Drug abuse reports injecting heroin monitor for withdrawal addiction team eval Full Code DVT Prophylaxis: Lovenox ongoing hospitalization need of bacteremia, community-acquired multifocal pneumonia and possible abscess-on iv antibiotics ,blood cultures repeat pending Time Spent With Patient Time: Total time managing care of this patient today ____ minutes. Quality Stroke Does the patient have a stroke diagnosis?: No VTE Prior VTE?: No VTE Risk Level:: Medical - moderate - high VTE Device Contraindication: Treatment Not Indicated VTE Drug Contraindication: N/A - Med Ordered
--- NOTE | 2023-05-08 16:02 | MHC.RECOVRN ---
Pts referral sent to [facility] as well as [facility]. Letter requested from [facility] to be sent to [facility] to inform the OTP the pt will be able to initiate care at [facility] upon dc from [facility].
[2023-05-08] MEDS: Magnesium Oxide 400 MG TABLET PO (17:58)
[2023-05-08] MEDS: Acetaminophen 325 MG TABLET 650 MG PO (20:20)
[2023-05-08] MEDS: Zolpidem Tartrate 5 MG TABLET PO (23:51)
[2023-05-09] VITALS (11 sets, daily range): BP systolic 141–165; BP diastolic 74–90; PULSE 78–91; RESP 17–20; TEMP 36.1–37.2; O2SAT 90–97
[2023-05-09] MEDS: Clindamycin Phosphate/D5W 600 MG/50 ML PIGGYBACK 100 MG IV ×3 (02:40→17:56)
[2023-05-09 07:23] LABS: Creatinine Clr Calc Pharmacy 208.8; Estimated Glomerular Filt Rate > 60
[2023-05-09] MEDS: Albuterol/Iprat 2.5/0.5MG 3 ML AMPUL.NEB INHALE ×4 (08:05→19:35)
[2023-05-09] MEDS: Enoxaparin Sodium 100 MG/ML SYRINGE SUBCUT ×2 (08:57→20:20)
[2023-05-09] MEDS: Omeprazole 20 MG CAPSULE.DR PO ×2 (08:57→15:24)
[2023-05-09] MEDS: guaiFENesin LA 600 MG TAB.ER.12H 1200 MG PO ×2 (08:57→20:20)
[2023-05-09] MEDS: Magnesium Oxide 400 MG TABLET PO ×2 (08:57→17:56)
[2023-05-09] MEDS: 0.9 % Sodium Chloride Flush 3 ML SYRINGE IVFLUSH ×2 (08:58→15:24)
[2023-05-09] MEDS: Nicotine 14 MG PATCH.TD24 TRANSDERMA (08:58)
[2023-05-09] MEDS: methADONE HCl 20 MG/2 ML ORAL.CONC 50 MG PO (08:58)
[2023-05-09 11:46] LABS: Potassium 3.1 mmol/L (3.3-5.1)
--- NOTE | 2023-05-09 12:14 | MHC.RECOVRN ---
Verified with [facility] pt is all set to dose when transferred to [facility].
--- NOTE | 2023-05-09 13:31 | HO.ADDICTPRO ---
Subjective Subjective Date of Service: 05/09/23 Reason For Visit: Multifocal Pneumonia Sepsis Interim History: Patient seen in follow up Awake, alert, engaged in interview Denies any withdrawal sx, and would like to increase methadone dose to 60mg QD (currently at 50mg) No questions related to OUD treatment, still experiencing pain/discomfort in left arm. Loose stools, diaphoresis and restlessness have resolved Review of Systems Acute medical concerns: Yes Medical Review of Systems: unchanged Review of Systems Constitutional: Reports as per HPI and Reports no additional constitutional complaints Mental Status Exam Mental Status Exam Patient Appearance: Well Grooomed Level of Consciousness: Awake, Appropriate and Alert Affect Description: Calm Diagnostics Vital Signs (24Hr): Vital Signs - 24 hr 05/08/23 15:36 05/08/23 15:51 05/08/23 19:01 Temperature 98.1 F Pulse Rate 80 79 82 Respiratory Rate 18 16 16 Blood Pressure 130/74 Pulse Oximetry 93 Oxygen Delivery Method Room Air Oxygen Flow Rate 05/08/23 19:38 05/08/23 23:31 05/09/23 03:11 Temperature 98.8 F 98.4 F 96.9 F Pulse Rate 98 80 78 Respiratory Rate 18 20 20 Blood Pressure 132/66 156/77 H 165/89 H Pulse Oximetry 93 94 95 Oxygen Delivery Method Room Air Room Air Nasal Cannula Oxygen Flow Rate 2 05/09/23 08:05 05/09/23 08:00 05/09/23 09:46 Temperature 97.8 F Pulse Rate 83 84 83 Respiratory Rate 18 18 Blood Pressure 163/90 H Pulse Oximetry 95 94 Oxygen Delivery Method Nasal Cannula Oxygen Flow Rate 2 05/09/23 10:35 05/09/23 11:46 Temperature 97.9 F Pulse Rate 91 91 Respiratory Rate 18 20 Blood Pressure 148/74 H Pulse Oximetry 92 Oxygen Delivery Method Nasal Cannula Oxygen Flow Rate 2 BMI result Body Mass Index 30.5 Labs 05/07/23 05:59 05/09/23 11:32 Labs: Laboratory Results - last 48 hr 05/08/23 05/08/23 05/09/23 06:05 13:13 06:44 Potassium 3.0 L Creatinine 0.59 0.57 Estim Creat Clear Calc 201.7 208.8 Estimated GFR > 60 > 60 Random Vancomycin 15.7 05/09/23 11:32 Potassium 3.1 L Creatinine Estim Creat Clear Calc Estimated GFR Random Vancomycin Imaging Radiology Impressions: ITS Impressions Chest X-Ray 05/05/23 10:50 IMPRESSION: Prominent right lower and mild right upper lobe patchy airspace opacities, consistent with multifocal pneumonia. Chest CT 05/05/23 16:34 IMPRESSION: Lack of intravenous contrast. Given this abscess formation is not adequately evaluated for. There is a dense infiltrate in the right middle lobe as described with adjacent pleural collection and abscess in this region cannot be excluded. If further evaluation is warranted recommendation is post contrast study. Otherwise scattered areas of opacities in the lungs consistent with patchy areas of infiltrate. There is a small dependent right effusion. Increased central adenopathy may be reactive. Follow-up is recommended here Venous Duplex 05/05/23 20:24 IMPRESSION: Positive for DVT in the brachial and radial veins as well as superficial thrombophlebitis in the cephalic and median cubital vein. Medications Medications Current Medications Acetaminophen (Acetaminophen 325 Mg Tablet) 650 mg PO Q6H PRN PRN Reason: Pain, Mild (Pain Scale 1-3) Last Admin: 05/08/23 20:20 Dose: 650 mg Albuterol Sulfate (Albuterol Sulfate (0.083%) 2.5 Mg/3 Ml Vial.Neb) 2.5 mg INHALE Q4H PRN PRN Reason: Shortness of Breath/Wheezing Albuterol/Ipratropium (Albuterol/Iprat 2.5/0.5mg 3 Ml Ampul.Neb) 3 ml INHALE RQ4H WHILE AWAKE [facility] Last Admin: 05/09/23 10:34 Dose: 3 ml Docusate Sodium (Docusate Sodium 100 Mg Capsule) 100 mg PO DAILY PRN PRN Reason: Constipation Enoxaparin Sodium (Enoxaparin Sodium 100 Mg/Ml Syringe) 100 mg SUBCUT Q12H [facility] Last Admin: 05/09/23 08:57 Dose: 100 mg Guaifenesin (Guaifenesin La 600 Mg Tab.Er.12h) 1,200 mg PO BID [facility] Last Admin: 05/09/23 08:57 Dose: 1,200 mg Guaifenesin/Dextromethorphan (Guaifenesin Dm 200/20/10 Ml 10 Ml Syrup) 10 ml PO Q4H PRN PRN Reason: Cough Clindamycin Phosphate (Cleocin) 600 mg in 50 mls @ 100 mls/hr IV Q8H [facility] Last Infusion: 05/09/23 12:26 Dose: Infused Ceftriaxone Sodium 2 gm/ (Sodium Chloride) 50 mls @ 100 mls/hr IV Q24H [facility] Last Infusion: 05/08/23 14:48 Dose: Infused Ibuprofen (Ibuprofen 400 Mg Tablet) 400 mg PO Q6H PRN PRN Reason: Pain, Mild (Pain Scale 1-3) Magnesium Oxide (Magnesium Oxide 400 Mg Tablet) 400 mg PO BIDPC [facility] Last Admin: 05/09/23 08:57 Dose: 400 mg Methadone HCl (Methadone Hcl 20 Mg/2 Ml Oral.Conc) 60 mg PO DAILY [facility] Nicotine (Nicotine 14 Mg Patch.Td24) 14 mg TRANSDERMA DAILY [facility] Last Admin: 05/09/23 08:58 Dose: 14 mg Omeprazole (Omeprazole 20 Mg Capsule.Dr) 20 mg PO BID@0630,1630 [facility] Last Admin: 05/09/23 08:57 Dose: 20 mg Ondansetron HCl (Ondansetron Hcl 4 Mg/2 Ml Vial) 4 mg IVPUSH Q8H PRN PRN Reason: Nausea and Vomiting Oxycodone HCl (Oxycodone Hcl Immed Release 5 Mg Tablet) 10 mg PO Q6H PRN PRN Reason: Pain, Mild (Pain Scale 1-3) Last Admin: 05/08/23 23:51 Dose: 10 mg Pharmacy Consult (Consult Rx Perform Med Rec) 1 each MISCELLANE ONCE PRN PRN Reason: Consult order Sodium Chloride (0.9 % Sodium Chloride Flush 3 Ml Syringe) 3 ml IVFLUSH QSHIFT [facility] Last Admin: 05/09/23 08:58 Dose: 3 ml Zolpidem Tartrate (Zolpidem Tartrate 5 Mg Tablet) 5 mg PO BEDTIME PRN PRN Reason: Insomnia Last Admin: 05/08/23 23:51 Dose: 5 mg Allergies Allergies Allergy/AdvReac Type Severity Reaction Status Date / Time Penicillins Allergy Unknown Verified 06/15/21 16:10 Assessment & Plan Assessment & Plan (1) Opioid use disorder: Status: Acute Code(s): F11.90 - Opioid use, unspecified, uncomplicated Assessment and Plan: methadone dose increased to 60mg in AM 05/10. proced tech coordinating admission to [facility] for guest dosing while at [facility] Total time managing care of this patient today __20__ minutes.
--- NOTE | 2023-05-09 14:43 | P.PNIM_ITS ---
Subjective Subjective Date of Service: 05/09/23 Interval History: Acute left upper extremityDVT?,Severe Sepsis 2/2 GPC bacteremia?,? pneumonia Review of Systems has cough ,sob improving but still desats with exersion denies any fever or chills Physical Exam Vital Signs: Vital Signs: Last Vital Signs Temp 97.9 F 05/09/23 11:46 Pulse 91 05/09/23 11:46 Resp 20 05/09/23 11:46 BP 148/74 H 05/09/23 11:46 Pulse Ox 92 05/09/23 11:46 O2 Del Method Nasal Cannula 05/09/23 11:46 O2 Flow Rate 2 05/09/23 11:46 BMI result Body Mass Index 30.5 Awake with stimulation, disheveled, ill looking Cvs : RRR, no JVP, no lower extremity edema chest : air entry decreased on RLL,? basal crackles, wheezes or rhonchi Gastrointestinal:? soft, nd, Normal bowel sounds, Non tender Skin : Warm, Dry left arm has pain ( slightly improving from 2-3 days ago when diagnosed with dvt) Neurological : Alert & oriented x3, No focal deficit Objective Data Active Medications Acetaminophen (Acetaminophen 325 Mg Tablet) 650 mg PO Q6H PRN PRN Reason: Pain, Mild (Pain Scale 1-3) Last Admin: 05/08/23 20:20 Dose: 650 mg Documented By: SIMON Albuterol Sulfate (Albuterol Sulfate (0.083%) 2.5 Mg/3 Ml Vial.Neb) 2.5 mg INHALE Q4H PRN PRN Reason: Shortness of Breath/Wheezing Albuterol/Ipratropium (Albuterol/Iprat 2.5/0.5mg 3 Ml Ampul.Neb) 3 ml INHALE RQ4H WHILE AWAKE [facility] Last Admin: 05/09/23 10:34 Dose: 3 ml Documented By: KARINA Docusate Sodium (Docusate Sodium 100 Mg Capsule) 100 mg PO DAILY PRN PRN Reason: Constipation Enoxaparin Sodium (Enoxaparin Sodium 100 Mg/Ml Syringe) 100 mg SUBCUT Q12H [facility] Last Admin: 05/09/23 08:57 Dose: 100 mg Documented By: FRANCISCO Guaifenesin (Guaifenesin La 600 Mg Tab.Er.12h) 1,200 mg PO BID [facility] Last Admin: 05/09/23 08:57 Dose: 1,200 mg Documented By: FRANCISCO Guaifenesin/Dextromethorphan (Guaifenesin Dm 200/20/10 Ml 10 Ml Syrup) 10 ml PO Q4H PRN PRN Reason: Cough Clindamycin Phosphate (Cleocin) 600 mg in 50 mls @ 100 mls/hr IV Q8H [facility] Last Infusion: 05/09/23 12:26 Dose: 0 mls/hr Documented By: CRISTIANO Ceftriaxone Sodium 2 gm/ (Sodium Chloride) 50 mls @ 100 mls/hr IV Q24H [facility] Last Infusion: 05/08/23 14:48 Dose: 0 mls/hr Documented By: LALITEKBlanca Ibuprofen (Ibuprofen 400 Mg Tablet) 400 mg PO Q6H PRN PRN Reason: Pain, Mild (Pain Scale 1-3) Magn[facility] Oxide ([facility] Last Admin: 05/09/23 08:57 Dose: 400 mg Documented By: FRANCISCO Methadone HCl (Methadone Hcl 20 Mg/2 Ml Oral.Conc) 60 mg PO DAILY [facility] Nicotine (Nicotine 14 Mg Patch.Td24) 14 mg TRANSDERMA DAILY [facility] Last Admin: 05/09/23 08:58 Dose: 14 mg Documented By: FRANCISCO Omeprazole (Omeprazole 20 Mg Capsule.Dr) 20 mg PO BID@0630,1630 [facility] Last Admin: 05/09/23 08:57 Dose: 20 mg Documented By: FRANCISCO Ondansetron HCl (Ondansetron Hcl 4 Mg/2 Ml Vial) 4 mg IVPUSH Q8H PRN PRN Reason: Nausea and Vomiting Oxycodone HCl (Oxycodone Hcl Immed Release 5 Mg Tablet) 10 mg PO Q6H PRN PRN Reason: Pain, Mild (Pain Scale 1-3) Last Admin: 05/08/23 23:51 Dose: 10 mg Documented By: SIMON Pharmacy Consult (Consult Rx Perform Med Rec) 1 each MISCELLANE ONCE PRN PRN Reason: Consult order Sodium Chloride (0.9 % Sodium Chloride Flush 3 Ml Syringe) 3 ml IVFLUSH QSHIFT [facility] Last Admin: 05/09/23 08:58 Dose: 3 ml Documented By: FRANCISCO Zolpidem Tartrate (Zolpidem Tartrate 5 Mg Tablet) 5 mg PO BEDTIME PRN PRN Reason: Insomnia Last Admin: 05/08/23 23:51 Dose: 5 mg Documented By: SMION Labs 05/07/23 05:59 05/09/23 11:32 Labs: Laboratory Results - last 24 hr 05/09/23 06:44 Estim Creat Clear Calc 208.8 Estimated GFR > 60 Microbiology Microbiology Results: Microbiology 05/06/23 13:17 Blood Culture - Preliminary Blood - Venous No growth after 48 hours. 05/06/23 13:17 Blood Culture - Preliminary Blood - Venous No growth after 48 hours. Assessment and Plan (1) Gram-positive bacteremia: Status: Acute (2) Acute respiratory failure with hypoxia: Status: Acute (3) Hypokalemia: Status: Acute Plan Pt is a 37-year-old male with no significant PMH not on home medication who presents to the ED with?right-sided pleuritic chest pain and mostly nonproductive cough for the last couple of days. Patient is homeless and has been feeling generally unwell the past few days. Presents to ED today after significant worsening of symptoms. Pt will be admitted to the hospital for treatment of sepsis in the setting of multifocal pneumonia. Severe Sepsis 2/2 GPC bacteremia in the setting of multifocal pneumonia and questionof lung abscess(ct chest) still weak and desats with excersion Blood cultures growing strep pyogenous ,repeat blood cultures neg@48hrs Continue Clindamycin(started 05/05) and Vancomycin(started 05/07)taken off 05/08, ceftriaxone day 2(started on 05/07/23) . ID, Thoracic and Pulm consults-continue iv antibiotics -need to determine d uration of antibiotics, if patient condition worsen and we will do further chest imaging. Transaminitislikely 2/2 sepsis improved Patient not complaining of abdominal pain, denies alcohol use hypokalemia : repleted ,moniter bmp Nicotine dependence smokes 1 pack of cigarettes a day Nicotine replacement therapy Smoking cessation encouraged Drug abuse reports injecting heroin monitor for withdrawal addiction team eval dvt LUE: continue lovenox added nsaids for pain oob ambulate compresses Full Code DVT Prophylaxis: Lovenox ongoing hospitalization need of bacteremia, community-acquired multifocal pneumonia and possible abscess-on iv antibiotics ,blood cultures repeat pending Time Spent With Patient Time: Total time managing care of this patient today ____ minutes. Quality Stroke Does the patient have a stroke diagnosis?: No VTE Prior VTE?: No VTE Risk Level:: Medical - moderate - high VTE Device Contraindication: Treatment Not Indicated VTE Drug Contraindication: N/A - Med Ordered
[2023-05-09] MEDS: cefTRIAXone sodium 2 GM in 0.9 % Sodium Chloride 50 ML IV (14:46)
[2023-05-09] MEDS: Potassium Chloride ER 20 MEQ TAB.ER.PRT 40 MEQ PO (15:24)
[2023-05-09] MEDS: Acetaminophen 325 MG TABLET 650 MG PO (23:21)
[2023-05-10] VITALS (10 sets, daily range): BP systolic 111–141; BP diastolic 52–75; PULSE 72–88; RESP 16–20; TEMP 36.4–37.1; O2SAT 88–98
[2023-05-10] MEDS: Clindamycin Phosphate/D5W 600 MG/50 ML PIGGYBACK 100 MG IV ×3 (03:35→20:58)
[2023-05-10 06:07] LABS: Hematocrit 33.2 % (42.0-52.0); Hemoglobin 10.6 g/dl (14.0-18.0); Mean Corpuscular HGB Conc 31.9 g/dl (31.0-36.0); Mean Corpuscular Hemoglobin 24.7 pg (27.0-33.0); Mean Corpuscular Volume 77.2 fL (80.0-98.0); Mean Platelet Volume 10.6 fL (9.4-12.4); Platelet Count 234 X10*3/uL (160-400); Red Cell Distribution Width 14.6 % (11.0-16.0); White Blood Count 10.8 X10*3/uL (4.8-10.8)
[2023-05-10 06:26] LABS: Anion Gap 11 (12-20); Blood Urea Nitrogen 6 mg/dL (9-16); Carbon Dioxide 28 mmol/L (22-29); Chloride 101 mmol/L (96-108); Creatinine Clr Calc Pharmacy 183.1; Estimated Glomerular Filt Rate > 60; Glucose Random 92 mg/dL (60-115); Potassium 3.3 mmol/L (3.3-5.1); Sodium 137 mmol/L (135-145)
[2023-05-10] MEDS: Omeprazole 20 MG CAPSULE.DR PO (06:28)
[2023-05-10] MEDS: Albuterol/Iprat 2.5/0.5MG 3 ML AMPUL.NEB INHALE ×3 (07:43→19:50)
[2023-05-10] MEDS: guaiFENesin LA 600 MG TAB.ER.12H 1200 MG PO ×2 (08:30→20:58)
[2023-05-10] MEDS: Nicotine 14 MG PATCH.TD24 TRANSDERMA (08:30)
[2023-05-10] MEDS: Magnesium Oxide 400 MG TABLET PO (08:30)
[2023-05-10] MEDS: methADONE HCl 20 MG/2 ML ORAL.CONC 60 MG PO (08:33)
[2023-05-10] MEDS: 0.9 % Sodium Chloride Flush 3 ML SYRINGE IVFLUSH (08:34)
--- NOTE | 2023-05-10 10:44 | HO.PICC ---
PICC Line Insertion NPICC Diagnosis: Bacteremia Indication: termite control servicer antibiotics Pertinent Labs: Reviewed Technique: Following informed consent including risks, benefits and alternatives and using sterile technique including cap and mask, sterile gown, glove and drape, the right arm was prepped and draped in the usual sterile fashion of full barrier technique with CHG. Following completion of [place] Protocol the skin and soft tissues were anesthetized with 1% Lidocaine plain. Using ultrasound guidance, the right basilic vein access was obtained in a single attempt by this RN. Over an 0.018 wire through peel-away sheath, a 4 croatian single lumen PASV PICC line was positioned. Catheter length is 44 cm internal length, 0 cm external length, for a total trimmed length of 44 cm. The procedure was performed in S272. Tip verification was performed by Fauzia Gomez with Sherlock 3CG. Tip located in SVC. Ultrasound was used to document vein patency and for needle entry. A formal ultrasound picture and cardiac rhythm strip was recorded. Vascular Ui Lead Developer has released the line for use and it is currently dressed with a StatLock, Tegaderm, and CHG disc. Verification has been performed for blood return and line patency. Arm Circumference: 31 cm Equipment: [employer] PowerPICC Solo Catheter with Sherlock 3CG Catheter Type: 4 croatian single lumen PASV PICC Lot #: [id number]
--- NOTE | 2023-05-10 11:51 | MHC.RECOVRN ---
Met with pt in 479 to check in. Pt laying in bed, awake, alert, easily engages in conversation. Pt reports feeling better, but it's taking a long time. Pt received 60 mg methadone this morning, states it's helping, I still have some cravings but I ignore them. Pt denies questions or concerns at this time.
--- NOTE | 2023-05-10 12:32 | HO.PM.IMPN ---
Subjective Subjective Date of Service: 05/10/23 Interval History: Acute left upper extremityDVT?,Severe Sepsis 2/2 GPC bacteremia?,? pneumonia Review of Systems sob improving but still desats with exersion denies any fever or chills Physical Exam Vital Signs: Vital Signs: Last Vital Signs Temp 98.3 F 05/10/23 11:31 Pulse 79 05/10/23 11:31 Resp 20 05/10/23 11:31 BP 132/66 05/10/23 11:31 Pulse Ox 96 05/10/23 11:31 O2 Del Method Nasal Cannula 05/10/23 11:31 O2 Flow Rate 2 05/10/23 11:31 BMI result Body Mass Index 30.5 Awake with stimulation, disheveled, ill looking Cvs : RRR, no JVP, no lower extremity edema chest : air entry decreased on RLL,? basal crackles, wheezes or rhonchi Gastrointestinal:? soft, nd, Normal bowel sounds, Non tender Skin : Warm, Dry Neurological : Alert & oriented x3, No focal deficit Objective Data Active Medications Acetaminophen (Acetaminophen 325 Mg Tablet) 650 mg PO Q6H PRN PRN Reason: Pain, Mild (Pain Scale 1-3) Last Admin: 05/09/23 23:21 Dose: 650 mg Documented By: CRISTIANO Albuterol Sulfate (Albuterol Sulfate (0.083%) 2.5 Mg/3 Ml Vial.Neb) 2.5 mg INHALE Q4H PRN PRN Reason: Shortness of Breath/Wheezing Albuterol/Ipratropium (Albuterol/Iprat 2.5/0.5mg 3 Ml Ampul.Neb) 3 ml INHALE RQ4H WHILE AWAKE [facility] Last Admin: 05/10/23 11:27 Dose: 3 ml Documented By: CELIA Docusate Sodium (Docusate Sodium 100 Mg Capsule) 100 mg PO DAILY PRN PRN Reason: Constipation Enoxaparin Sodium (Enoxaparin Sodium 100 Mg/Ml Syringe) 100 mg SUBCUT Q12H [facility] Last Admin: 05/09/23 20:20 Dose: 100 mg Documented By: CRISTIANO Guaifenesin (Guaifenesin La 600 Mg Tab.Er.12h) 1,200 mg PO BID [facility] Last Admin: 05/10/23 08:30 Dose: 1,200 mg Documented By: CHAITANYA Guaifenesin/Dextromethorphan (Guaifenesin Dm 200/20/10 Ml 10 Ml Syrup) 10 ml PO Q4H PRN PRN Reason: Cough Clindamycin Phosphate (Cleocin) 600 mg in 50 mls @ 100 mls/hr IV Q8H [facility] Last Infusion: 05/10/23 12:23 Dose: 0 mls/hr Documented By: FOSTEKR Ceftriaxone Sodium 2 gm/ (Sodium Chloride) 50 mls @ 100 mls/hr IV Q24H [facility] Last Infusion: 05/09/23 15:47 Dose: 0 mls/hr Documented By: CRISTIANO Ibuprofen (Ibuprofen 400 Mg Tablet) 400 mg PO Q6H PRN PRN Reason: Pain, Mild (Pain Scale 1-3) Magnesium Oxide (Magnesium Oxide 400 Mg Tablet) 400 mg PO BIDPC [facility] Last Admin: 05/10/23 08:30 Dose: 400 mg Documented By: CHAITANYA Methadone HCl (Methadone Hcl 20 Mg/2 Ml Oral.Conc) 60 mg PO DAILY [facility] Last Admin: 05/10/23 08:33 Dose: 60 mg Documented By: CHAITANYA Nicotine (Nicotine 14 Mg Patch.Td24) 14 mg TRANSDERMA DAILY [facility] Last Admin: 05/10/23 08:30 Dose: 14 mg Documented By: CHAITANYA Omeprazole (Omeprazole 20 Mg Capsule.Dr) 20 mg PO BID@0630,1630 [facility] Last Admin: 05/10/23 06:28 Dose: 20 mg Documented By: CHERYL Ondansetron HCl (Ondansetron Hcl 4 Mg/2 Ml Vial) 4 mg IVPUSH Q8H PRN PRN Reason: Nausea and Vomiting Oxycodone HCl (Oxycodone Hcl Immed Release 5 Mg Tablet) 10 mg PO Q6H PRN PRN Reason: Pain, Mild (Pain Scale 1-3) Last Admin: 05/08/23 23:51 Dose: 10 mg Documented By: SIMON Pharmacy Consult (Consult Rx Perform Med Rec) 1 each MISCELLANE ONCE PRN PRN Reason: Consult order Sodium Chloride (0.9 % Sodium Chloride Flush 3 Ml Syringe) 3 ml IVFLUSH QSHIFT [facility] Last Admin: 06/30/23 08:34 Dose: 3 ml Documented By: CHAITANYA Zolpidem Tartrate (Zolpidem Tartrate 5 Mg Tablet) 5 mg PO BEDTIME PRN PRN Reason: Insomnia Last Admin: 05/08/23 23:51 Dose: 5 mg Documented By: SIMON Labs 05/10/23 05:33 05/10/23 05:33 Labs: Laboratory Results - last 24 hr 05/10/23 05/10/23 05:33 05:33 MCV 77.2 L MCH 24.7 L MCHC 31.9 RDW 14.6 Plt Count 234 MPV 10.6 Absolute Nucleated RBC 0.000 Nucleated RBC % (auto) 0.0 Anion Gap 11 L Estim Creat Clear Calc 183.1 Estimated GFR > 60 Random Glucose 92 Calcium 8.0 L Assessment and Plan (1) Gram-positive bacteremia: Status: Acute (2) Acute respiratory failure with hypoxia: Status: Acute (3) Pneumonia: Status: Acute Plan ?37-year-old male with no significant PMH not on home medication who presents to the ED with?right-sided pleuritic chest pain and mostly nonproductive cough for the last couple of days.? Patient is homeless and has been feeling generally unwell the past few days.? Presents to ED today after significant worsening of symptoms. Pt will be admitted to the hospital for treatment of sepsis in the setting of multifocal pneumonia. Severe Sepsis 2/2 GPC bacteremia in the setting of multifocal pneumonia and possible lung abscess CT as reported,cxr shows somewhat worsening opacity Blood cultures growing strep pyogenous ,repeat blood cultures pending Continue Clindamycin(started 05/05) and? Vancomycin(started 05/07)taken off 05/08, now added ceftriaxone . ID, Thoracic and Pulm consults-continue iv antibiotics -need to determine duration of antibiotics, if patient condition worsen and we will do further chest imaging. also added piccline order for [facility] antibiotics. Transaminitislikely 2/2 sepsis improved Patient not complaining of abdominal pain, denies alcohol use Follow CMP Nicotine dependence smokes 1 pack of cigarettes a day Nicotine replacement therapy Smoking cessation encouraged Drug abuse reports injecting heroin monitor for withdrawal ?addiction team eval hypokalemia -repleted and resolved. Full Code DVT Prophylaxis: Lovenox ongoing? hospitalization need of bacteremia, community-acquired multifocal pneumonia and possible abscess-on iv antibiotics ,blood cultures repeat pending Time Spent With Patient Time: Total time managing care of this patient today ____ minutes. Quality Stroke Does the patient have a stroke diagnosis?: No VTE Prior VTE?: No VTE Risk Level:: Medical - moderate - high VTE Device Contraindication: Treatment Not Indicated VTE Drug Contraindication: N/A - Med Ordered
--- NOTE | 2023-05-10 13:35 | MHC.CM.PN ---
EMR REVIEWED, PICC LINE PLACED TODAY IN CASE OF W/E D/C HOWEVER PER HOSPITALIST PT REMAINS HYPOXIC AND WILL NEED CXR AND PULMONOLOGY, NNO PLAN FOR D/C TODAY, [facility] UPD[facility] AND CM WILL CONT TO FOLLOW D/C NEEDS.
[2023-05-10] MEDS: cefTRIAXone sodium 2 GM in 0.9 % Sodium Chloride 50 ML IV (13:43)
[2023-05-10 16:51] LABS: Prothrombin Time 11.9 SEC (10.0-13.1)
[2023-05-10 17:33] LABS: TS Negative Control Passed; TS Panel A 0; TS Panel B 0; TS Positive Control Passed; TSpotTB Negative (Negative)
--- NOTE | 2023-05-10 18:26 | HO.RADPN ---
RADIOLOGY Narrative Narrative: 10.2 fr right chest tube places. Serosanguinous fluid . Specimen sent.
[2023-05-10] MEDS: Lidocaine HCl 1 % MPF 5 ML VIAL 10 ML SUBCUT (18:41)
[2023-05-10] MEDS: oxyCODONE HCl Immed Release 5 MG TABLET 10 MG PO ×2 (19:36)
[2023-05-10 19:42] LABS: MN% 58.1 %; PMN% 41.9 %; RBC Pleural Fluid 0.021 X10*6/uL; WBC Pleural Fluid 1.013 X10*3/uL
[2023-05-10 20:31] LABS: BF Shift QC OK YES; Lymphocytes Pleural Fluid 6 %; Monocytes Pleural Fluid 7 %; Neutrophils Pleural Fluid 52 %; Other Cells Plerual Fl 35 %
[2023-05-11] VITALS (10 sets, daily range): BP systolic 113–155; BP diastolic 56–62; PULSE 72–80; RESP 17–18; TEMP 36.4–37.2; O2SAT 93–98
[2023-05-11] MEDS: Clindamycin Phosphate/D5W 600 MG/50 ML PIGGYBACK 100 MG IV ×3 (02:15→18:29)
[2023-05-11] MEDS: 0.9 % Sodium Chloride Flush 3 ML SYRINGE IVFLUSH ×4 (02:16→21:29)
[2023-05-11 03:47] LABS: pH Pleural Fluid 7.48
[2023-05-11 04:10] LABS: Albumin Pleural Fluid 1.7 GM/DL; Glucose Pleural Fluid 81 MG/DL; LDH Pleural Fluid 619 U/L; Total Protein Pleural Fluid 3.9 GM/DL
[2023-05-11] MEDS: oxyCODONE HCl Immed Release 5 MG TABLET 10 MG PO (05:59)
[2023-05-11] MEDS: Omeprazole 20 MG CAPSULE.DR PO ×2 (05:59→17:14)
[2023-05-11 08:06] LABS: Creatinine Clr Calc Pharmacy 183.1; Estimated Glomerular Filt Rate > 60
[2023-05-11] MEDS: Albuterol/Iprat 2.5/0.5MG 3 ML AMPUL.NEB INHALE ×4 (08:19→20:08)
[2023-05-11] MEDS: methADONE HCl 20 MG/2 ML ORAL.CONC 60 MG PO (09:20)
[2023-05-11] MEDS: Nicotine 14 MG PATCH.TD24 TRANSDERMA (09:22)
[2023-05-11] MEDS: Magnesium Oxide 400 MG TABLET PO ×2 (09:22→17:14)
[2023-05-11] MEDS: guaiFENesin LA 600 MG TAB.ER.12H 1200 MG PO ×2 (09:22→21:29)
[2023-05-11] MEDS: cefTRIAXone sodium 2 GM in 0.9 % Sodium Chloride 50 ML IV (14:09)
--- NOTE | 2023-05-11 16:37 | HO.PM.IMPN ---
Subjective Subjective Date of Service: 05/11/23 Interval History: no acute issues overnight. Tolerating chest tube Review of Systems denies chest pain Denies shortness of breath Denies nausea vomiting diarrhea Denies fever chills Physical Exam Vital Signs: Vital Signs: Last Vital Signs Temp 97.8 F 05/11/23 14:13 Pulse 72 05/11/23 15:41 Resp 17 05/11/23 15:41 BP 155/62 H 05/11/23 14:13 Pulse Ox 94 05/11/23 14:13 O2 Del Method Nasal Cannula 05/11/23 14:13 O2 Flow Rate 4 05/11/23 14:13 BMI result Body Mass Index 30.5 Const: Other: no acute distress Resp: Other: diminished right side otherwise c Cardio: Other: no S4; positive S1-S2; no S3 murmurs rubs or gallops GI: Other: soft nontender nondistended normoactive bowel sounds Extrem: Other: no edema bilaterally Objective Data Active Medications Acetaminophen (Acetaminophen 325 Mg Tablet) 650 mg PO Q6H PRN PRN Reason: Pain, Mild (Pain Scale 1-3) Last Admin: 05/09/23 23:21 Dose: 650 mg Documented By: CRISTIANO Albuterol Sulfate (Albuterol Sulfate (0.083%) 2.5 Mg/3 Ml Vial.Neb) 2.5 mg INHALE Q4H PRN PRN Reason: Shortness of Breath/Wheezing Albuterol/Ipratropium (Albuterol/Iprat 2.5/0.5mg 3 Ml Ampul.Neb) 3 ml INHALE RQ4H WHILE AWAKE [facility] Last Admin: 05/11/23 15:40 Dose: 3 ml Documented By: LINDA Docusate Sodium (Docusate Sodium 100 Mg Capsule) 100 mg PO DAILY PRN PRN Reason: Constipation Enoxaparin Sodium (Enoxaparin Sodium 100 Mg/Ml Syringe) 100 mg SUBCUT Q12H [facility] Last Admin: 05/09/23 20:20 Dose: 100 mg Documented By: CRISTIANO Guaifenesin (Guaifenesin La 600 Mg Tab.Er.12h) 1,200 mg PO BID [facility] Last Admin: 05/11/23 09:22 Dose: 1,200 mg Documented By: JACEY Mcneillaifenesin/Dextromethorphan (Guaifenesin Dm 200/20/10 Ml 10 Ml Syrup) 10 ml PO Q4H PRN PRN Reason: Cough Clindamycin Phosphate (Cleocin) 600 mg in 50 mls @ 100 mls/hr IV Q8H [facility] Last Infusion: 05/11/23 11:48 Dose: 0 mls/hr Documented By: JACEY Ceftriaxone Sodium 2 gm/ (Sodium Chloride) 50 mls @ 100 mls/hr IV Q24H [facility] Last Infusion: 05/11/23 15:02 Dose: 0 mls/hr Documented By: JACEY Ibuprofen (Ibuprofen 400 Mg Tablet) 400 mg PO Q6H PRN PRN Reason: Pain, Mild (Pain Scale 1-3) Magnesium Oxide (Magnesium Oxide 400 Mg Tablet) 400 mg PO BIDPC [facility] Last Admin: 05/11/23 09:22 Dose: 400 mg Documented By: JACEY Methadone HCl (Methadone Hcl 20 Mg/2 Ml Oral.Conc) 60 mg PO DAILY [facility] Last Admin: 05/11/23 09:20 Dose: 60 mg Documented By: JACEY Nicotine (Nicotine 14 Mg Patch.Td24) 14 mg TRANSDERMA DAILY [facility] Last Admin: 05/11/23 09:22 Dose: 14 mg Documented By: JACEY Omeprazole (Omeprazole 20 Mg Capsule.Dr) 20 mg PO BID@0630,1630 [facility] Last Admin: 05/11/23 05:59 Dose: 20 mg Documented By: CECE Ondansetron HCl (Ondansetron Hcl 4 Mg/2 Ml Vial) 4 mg IVPUSH Q8H PRN PRN Reason: Nausea and Vomiting Oxycodone HCl (Oxycodone Hcl Immed Release 5 Mg Tablet) 10 mg PO Q6H PRN PRN Reason: Pain, Mild (Pain Scale 1-3) Last Admin: 05/11/23 05:59 Dose: 10 mg Documented By: CECE Pharmacy Consult (Consult Rx Perform Med Rec) 1 each MISCELLANE ONCE PRN PRN Reason: Consult order Sodium Chloride (0.9 % Sodium Chloride Flush 3 Ml Syringe) 3 ml IVFLUSH QSHIFT [facility] Last Admin: 05/11/23 09:24 Dose: 3 ml Documented By: JACEY Zolpidem Tartrate (Zolpidem Tartrate 5 Mg Tablet) 5 mg PO BEDTIME PRN PRN Reason: Insomnia Last Admin: 05/08/23 23:51 Dose: 5 mg Documented By: SIMON Labs 05/10/23 05:33 05/11/23 05:51 Labs: Laboratory Results - last 24 hr 05/08/23 05/10/23 05/10/23 14:12 16:07 18:10 PT 11.9 INR 1.0 Estim Creat Clear Calc Estimated GFR Pleural pH Pleural WBC Pleural RBC Pleural Neutrophils Pleural Lymphocytes Pleural Monocytes Pleural Other Cells Pleural Total Protein 3.9 Pleural Albumin 1.7 Pleural LDH 619 Pleural Glucose 81 TB Test (T-Spot) Com Negative TB Test Nil Control Passed TB Test Panel A 0 TB Test Panel B 0 TB Test Positive Cntrl Passed 05/10/23 05/10/23 05/11/23 18:10 18:10 05:51 PT INR Estim Creat Clear Calc 183.1 Estimated GFR > 60 Pleural pH 7.48 Pleural WBC 1.013 Pleural RBC 0.021 Pleural Neutrophils 52 Pleural Lymphocytes 6 Pleural Monocytes 7 Pleural Other Cells 35 Pleural Total Protein Pleural Albumin Pleural LDH Pleural Glucose TB Test (T-Spot) Com TB Test Nil Control TB Test Panel A TB Test Panel B TB Test Positive Cntrl Microbiology Microbiology Results: Microbiology 05/06/23 13:17 Blood Culture - Final Blood - Venous No growth after 5 days. 05/06/23 13:17 Blood Culture - Final Blood - Venous No growth after 5 days. Assessment and Plan (1) Bacteremia due to Streptococcus: Status: Acute (2) Transaminitis: Status: Acute (3) Hypokalemia: Status: Acute Plan ?37-year-old male with no significant PMH not on home medication who presents to the ED with?right-sided pleuritic chest pain and mostly nonproductive cough for the last couple of days.? Patient is homeless and has been feeling generally unwell the past few days.? Presents to ED today after significant worsening of symptoms. Pt will be admitted to the hospital for treatment of sepsis in the setting of multifocal pneumonia. 1.Severe Sepsis/GPC bacteremia in backdrop of multifocal pneumonia -clindamycin(7)/Vancomycin(2- DC)/ceftriaxone(4) - echo negative for vegetation - chest tube placed 05/10... tolerated well 2.Transaminitis - resolving - trend LFTs 3.Opiate use disorder - methadone as per addiction Medicine [facility] full code requires ongoing hospitalization for IV antibiotics to treat g positive bacteremia Time Spent With Patient Time: Total time managing care of this patient today ____ minutes. Quality Stroke Does the patient have a stroke diagnosis?: No VTE Prior VTE?: No VTE Risk Level:: Medical - moderate - high VTE Device Contraindication: Treatment Not Indicated VTE Drug Contraindication: N/A - Med Ordered
[2023-05-12] VITALS (8 sets, daily range): BP systolic 119–154; BP diastolic 56–81; PULSE 74–87; RESP 16–22; TEMP 36.4–36.9; O2SAT 93–98
[2023-05-12] MEDS: Clindamycin Phosphate/D5W 600 MG/50 ML PIGGYBACK 100 MG IV ×3 (02:23→18:33)
[2023-05-12] MEDS: oxyCODONE HCl Immed Release 5 MG TABLET 10 MG PO (03:10)
[2023-05-12] MEDS: Omeprazole 20 MG CAPSULE.DR PO ×2 (05:56→17:17)
[2023-05-12 06:41] LABS: Creatinine Clr Calc Pharmacy 185.9; Estimated Glomerular Filt Rate > 60
[2023-05-12] MEDS: Albuterol/Iprat 2.5/0.5MG 3 ML AMPUL.NEB INHALE ×2 (07:51→11:33)
[2023-05-12] MEDS: Magnesium Oxide 400 MG TABLET PO ×2 (09:48→17:18)
[2023-05-12] MEDS: Enoxaparin Sodium 100 MG/ML SYRINGE SUBCUT ×2 (09:48→20:30)
[2023-05-12] MEDS: guaiFENesin LA 600 MG TAB.ER.12H 1200 MG PO ×2 (09:48→20:30)
[2023-05-12] MEDS: methADONE HCl 20 MG/2 ML ORAL.CONC 60 MG PO (09:48)
[2023-05-12] MEDS: 0.9 % Sodium Chloride Flush 3 ML SYRINGE IVFLUSH ×3 (09:48→20:30)
[2023-05-12] MEDS: Nicotine 14 MG PATCH.TD24 TRANSDERMA (09:49)
--- NOTE | 2023-05-12 12:01 | HO.PM.IMPN ---
Subjective Subjective Date of Service: 05/13/23 Interval History: Acute left upper extremityDVT?,Severe Sepsis 2/2 GPC bacteremia?,? pneumonia Review of Systems sob improving denies any fever or chills Physical Exam Vital Signs: Vital Signs: Last Vital Signs Temp 97.6 F 05/12/23 11:00 Pulse 78 05/12/23 11:35 Resp 16 05/12/23 11:35 BP 140/57 H 05/12/23 11:00 Pulse Ox 93 05/12/23 11:00 O2 Del Method Nasal Cannula 05/12/23 11:00 O2 Flow Rate 3 05/12/23 11:00 BMI result Body Mass Index 30.5 Awake with stimulation, disheveled, looking slowly better Cvs : RRR, no JVP, no lower extremity edema chest : air entry decreased on RLL,? basal crackles, wheezes or rhonchi Gastrointestinal:? soft, nd, Normal bowel sounds, Non tender Skin : Warm, Dry Neurological : Alert & oriented x3, No focal deficit Objective Data Active Medications Acetaminophen (Acetaminophen 325 Mg Tablet) 650 mg PO Q6H PRN PRN Reason: Pain, Mild (Pain Scale 1-3) Last Admin: 05/09/23 23:21 Dose: 650 mg Documented By: CRISTIANO Albuterol Sulfate (Albuterol Sulfate (0.083%) 2.5 Mg/3 Ml Vial.Neb) 2.5 mg INHALE Q4H PRN PRN Reason: Shortness of Breath/Wheezing Albuterol/Ipratropium (Albuterol/Iprat 2.5/0.5mg 3 Ml Ampul.Neb) 3 ml INHALE RQ4H WHILE AWAKE [facility] Last Admin: 05/12/23 11:33 Dose: 3 ml Documented By: FABIO Docusate Sodium (Docusate Sodium 100 Mg Capsule) 100 mg PO DAILY PRN PRN Reason: Constipation Enoxaparin Sodium (Enoxaparin Sodium 100 Mg/Ml Syringe) 100 mg SUBCUT Q12H [facility] Last Admin: 05/12/23 09:48 Dose: 100 mg Documented By: JACEY Guaifenesin (Guaifenesin La 600 Mg Tab.Er.12h) 1,200 mg PO BID [facility] Last Admin: 05/12/23 09:48 Dose: 1,200 mg Documented By: JACEY Guaifenesin/Dextromethorphan (Guaifenesin Dm 200/20/10 Ml 10 Ml Syrup) 10 ml PO Q4H PRN PRN Reason: Cough Clindamycin Phosphate (Cleocin) 600 mg in 50 mls @ 100 mls/hr IV Q8H [facility] Last Admin: 05/12/23 11:38 Dose: 100 mls/hr Documented By: JACEY Ceftriaxone Sodium 2 gm/ (Sodium Chloride) 50 mls @ 100 mls/hr IV Q24H [facility] Last Infusion: 05/11/23 15:02 Dose: 0 mls/hr Documented By: JACEY Ibuprofen (Ibuprofen 400 Mg Tablet) 400 mg PO Q6H PRN PRN Reason: Pain, Mild (Pain Scale 1-3) Magnesium Oxide (Magnesium Oxide 400 Mg Tablet) 400 mg PO BIDPC [facility] Last Admin: 05/12/23 09:48 Dose: 400 mg Documented By: JACEY Methadone HCl (Methadone Hcl 20 Mg/2 Ml Oral.Conc) 60 mg PO DAILY [facility] Last Admin: 05/12/23 09:48 Dose: 60 mg Documented By: JACEY Nicotine (Nicotine 14 Mg Patch.Td24) 14 mg TRANSDERMA DAILY [facility] Last Admin: 05/12/23 09:49 Dose: 14 mg Documented By: JACEY Omeprazole (Omeprazole 20 Mg Capsule.Dr) 20 mg PO BID@0630,1630 [facility] Last Admin: 05/12/23 05:56 Dose: 20 mg Documented By: CECE Ondansetron HCl (Ondansetron Hcl 4 Mg/2 Ml Vial) 4 mg IVPUSH Q8H PRN PRN Reason: Nausea and Vomiting Oxycodone HCl (Oxycodone Hcl Immed Release 5 Mg Tablet) 10 mg PO Q6H PRN PRN Reason: Pain, Mild (Pain Scale 1-3) Last Admin: 05/12/23 03:10 Dose: 10 mg Documented By: CECE Pharmacy Consult (Consult Rx Perform Med Rec) 1 each MISCELLANE ONCE PRN PRN Reason: Consult order Sodium Chloride (0.9 % Sodium Chloride Flush 3 Ml Syringe) [facility] Last Admin: 05/12/23 09:48 Dose: 3 ml Documented By: JACEY Zolpidem Tartrate (Zolpidem Tartrate 5 Mg Tablet) 5 mg PO BEDTIME PRN PRN Reason: Insomnia Last Admin: 05/08/23 23:51 Dose: 5 mg Documented By: SIMON Labs 05/10/23 05:33 05/12/23 06:00 Labs: Laboratory Results - last 24 hr 05/12/23 06:00 Estim Creat Clear Calc 185.9 Estimated GFR > 60 Microbiology Microbiology Results: Microbiology 05/06/23 13:17 Blood Culture - Final Blood - Venous No growth after 5 days. 05/06/23 13:17 Blood Culture - Final Blood - Venous No growth after 5 days. Assessment and Plan (1) Transaminitis: Status: Acute (2) Bacteremia due to Streptococcus: Status: Acute (3) Pneumonia: Status: Acute Plan 37-year-old male with no significant PMH not on home medication who presents to the ED with?right-sided pleuritic chest pain and mostly nonproductive cough for the last couple of days.? Patient is homeless and has been feeling generally unwell the past few days.? Presents to ED today after significant worsening of symptoms. Pt will be admitted to the hospital for treatment of sepsis in the setting of multifocal pneumonia. Severe Sepsis 2/2 GPC bacteremia in the setting of multifocal pneumonia and possible lung abscess CT as reported,cxr shows somewhat worsening opacity Blood cultures growing strep pyogenous ,repeat blood culture neg Continue Clindamycin(started 05/05) and? Vancomycin(started 05/07)taken off 05/08,on ceftriaxone(starting 05/08). has right sided chest tube to -20 suction ID, Thoracic and Pulm consults-continue iv antibiotics -need to determine duration of antibiotics, if patient condition worsen and we will do further chest imaging. cxr reviewed and patient was seen by thoracic:Continue current plan with chest tube.? 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 Transaminitislikely 2/2 sepsis improved Patient not complaining of abdominal pain, denies alcohol use. Nicotine dependence smokes 1 pack of cigarettes a day Nicotine replacement therapy Smoking cessation encouraged Drug abuse reports injecting heroin monitor for withdrawal ?addiction team eval hypokalemia -repleted and resolved. Full Code DVT Prophylaxis: Lovenox ongoing? hospitalization need of bacteremia, community-acquired multifocal pneumonia and possible abscess-on iv antibiotics ,picc line ,chest tube removal. Time Spent With Patient Time: Total time managing care of this patient today ____ minutes. Quality Stroke Does the patient have a stroke diagnosis?: No VTE Prior VTE?: No VTE Risk Level:: Medical - moderate - high VTE Device Contraindication: Treatment Not Indicated VTE Drug Contraindication: N/A - Med Ordered
[2023-05-12] MEDS: cefTRIAXone sodium 2 GM in 0.9 % Sodium Chloride 50 ML IV (13:55)
[2023-05-13] VITALS (10 sets, daily range): BP systolic 147–167; BP diastolic 55–83; PULSE 74–89; RESP 16–20; TEMP 36.2–37.1; O2SAT 93–97
[2023-05-13] MEDS: Clindamycin Phosphate/D5W 600 MG/50 ML PIGGYBACK 100 MG IV ×3 (02:40→18:20)
[2023-05-13] MEDS: Omeprazole 20 MG CAPSULE.DR PO ×2 (05:19→15:43)
[2023-05-13] MEDS: Albuterol/Iprat 2.5/0.5MG 3 ML AMPUL.NEB INHALE ×4 (07:49→20:03)
[2023-05-13] MEDS: Enoxaparin Sodium 100 MG/ML SYRINGE SUBCUT ×2 (09:24→20:18)
[2023-05-13] MEDS: 0.9 % Sodium Chloride Flush 3 ML SYRINGE IVFLUSH ×3 (09:24→20:18)
[2023-05-13] MEDS: oxyCODONE HCl Immed Release 5 MG TABLET 10 MG PO ×2 (09:25→15:44)
[2023-05-13] MEDS: methADONE HCl 20 MG/2 ML ORAL.CONC 60 MG PO (09:25)
[2023-05-13] MEDS: Docusate Sodium 100 MG CAPSULE PO ×2 (09:26→20:18)
[2023-05-13] MEDS: Nicotine 14 MG PATCH.TD24 TRANSDERMA (09:26)
[2023-05-13] MEDS: guaiFENesin LA 600 MG TAB.ER.12H 1200 MG PO ×2 (09:26→20:17)
[2023-05-13] MEDS: Magnesium Oxide 400 MG TABLET PO ×2 (09:26→15:44)
--- NOTE | 2023-05-13 11:21 | MHC.CM.PN ---
EMR REVIEWED AND PER MD ROUNDS, PT HAS NOT BEEN MEDICALLY CLEARED TO DC (CHEST TUBE, IV ABT) [facility]PDATED [facility] [employer]. CM WILL CONTINUE TO FOLLOW FOR DC PLAN/NEEDS.
--- NOTE | 2023-05-13 12:52 | PM.PNTS ---
Subjective Subjective Date of Service: 05/13/23 Interval history: No acute respiratory symptoms. Patient actually sleeping and minimally arousable Physical Exam Vital Signs: Vital Signs: Last Vital Signs Temp 98.7 F 05/13/23 11:00 Pulse 74 05/13/23 11:39 Resp 18 05/13/23 11:39 BP 167/83 H 05/13/23 11:00 Pulse Ox 95 05/13/23 11:00 O2 Del Method Nasal Cannula 05/13/23 11:00 O2 Flow Rate 3 05/13/23 11:00 BMI result Body Mass Index 30.5 Chest: Other: Pleur-evac has minimal drainage of serosanguineous fluid. No obvious air leak. Procedures Date of Service Date of Service: 05/13/23 Progress Note: A&P Assessment and plan (1) Multifocal pneumonia: Status: Acute Plan Continue current plan with chest tube. If output continues to be minimal, consider DC chest tube soon. Time Spent With Patient Time: Total time managing care of this patient today ____ minutes. Quality Stroke Does the patient have a stroke diagnosis?: No VTE Prior VTE?: No VTE Risk Level:: Medical - moderate - high VTE Device Contraindication: Treatment Not Indicated VTE Drug Contraindication: N/A - Med Ordered
[2023-05-13] MEDS: cefTRIAXone sodium 2 GM in 0.9 % Sodium Chloride 50 ML IV (13:56)
--- NOTE | 2023-05-13 15:27 | PM.PNTS ---
Subjective Subjective Date of Service: 05/13/23 Interval history: Chest tube uneventfully removed. Well tolerated. Physical Exam Vital Signs: Vital Signs: Last Vital Signs Temp 98.7 F 05/13/23 11:00 Pulse 74 05/13/23 11:39 Resp 18 05/13/23 11:39 BP 167/83 H 05/13/23 11:00 Pulse Ox 95 05/13/23 11:00 O2 Del Method Nasal Cannula 05/13/23 11:00 O2 Flow Rate 3 05/13/23 11:00 BMI result Body Mass Index 30.5 Procedures Date of Service Date of Service: 05/13/23 Progress Note: A&P Assessment and plan (1) Pleural effusion: Status: Acute Plan Status post chest tube removal. Time Spent With Patient Time: Total time managing care of this patient today ____ minutes. Quality Stroke Does the patient have a stroke diagnosis?: No VTE Prior VTE?: No VTE Risk Level:: Medical - moderate - high VTE Device Contraindication: Treatment Not Indicated VTE Drug Contraindication: N/A - Med Ordered
[2023-05-13] MEDS: guaiFENesin DM 200/20/10 ML 10 ML SYRUP PO (15:43)
--- NOTE | 2023-05-13 16:15 | PM.IDPN ---
Subjective Subjective Date of Service: 05/13/23 Critical Care Time (minutes): 15 Comment: He has no complaints He has Group A strep pyogenes abscess lung drained 05/10 He is tolerating antibiotics. He has not much drainage but necrotic lung still. Objective Data Labs 05/10/23 05:33 05/12/23 06:00 Microbiology Microbiology Results: Microbiology 05/10/23 18:10 Pleural Fluid Gram Stain - Final 05/06/23 13:17 Blood - Venous Blood Culture - Final No growth after 5 days. 05/06/23 13:17 Blood - Venous Blood Culture - Final No growth after 5 days. 05/05/23 11:08 Blood - Venous Blood Culture - Final Streptococcus pyogenes (Grp A) 05/05/23 17:42 Urine clean catch - Clean Catch Midstream Urine Culture - Final No growth. 05/05/23 11:08 Blood - Venous Blood Culture - Final Streptococcus pyogenes (Grp A) Physical Exam Vital Signs: Vital Signs: Last Vital Signs Temp 97.6 F 05/13/23 15:00 Pulse 83 05/13/23 15:33 Resp 20 05/13/23 15:33 BP 155/75 H 05/13/23 15:00 Pulse Ox 96 05/13/23 15:00 O2 Del Method Nasal Cannula 05/13/23 15:00 O2 Flow Rate 3 05/13/23 15:00 BMI result Body Mass Index 30.5 HEENT: Head: Yes normal to inspection Mouth: Normal oral and palatal mucosa present Resp: Effort & Inspection: normal respiratory effort Cardio: Rate: regular rate Rhythm: regular rhythm GI: Inspection: Yes normal to inspection Assessment and Plan Assessment and plan (1) Pleural effusion: Problem details: Group A strep exudative empyema with 1000 WBC,,50% neutrophils. He is doing better Status: Acute Assessment and Plan: Ceftriaxone for 4 weeks IV and 2 weeks IV Flagyl. Weekly creatinine ,CBC and LFTs (2) Bacteremia due to Streptococcus: Status: Acute Time Spent With Patient Time: Total time managing care of this patient today ____ minutes.
[2023-05-13] MEDS: Acetaminophen 325 MG TABLET 650 MG PO (20:23)
--- NOTE | 2023-05-13 21:05 | PC.NURSE ---
Assumed care at 07:00 am. Patient compliant and cooperative with care. Chest tube with 45 ccs serrous drainage, dim RLL lung sounds, fine crackles throughout rest. Patient placed on waterseal for 2 hours before Surgeon to bedside to remove chest tube. Well tolerated. Patient now with dressing to site. Prior to removal had been reporting 6-8/10 pain to insertion site, oxycodone with good effect, now with minimal pain to site s/p removal. No respiratory distress, frequent productive cough small amount of white/clear sputum, and patioent expectorating and using a capella and incentive spirometry.
[2023-05-14] VITALS (10 sets, daily range): BP systolic 124–140; BP diastolic 50–62; PULSE 78–89; RESP 14–20; TEMP 36–37; O2SAT 93–99
[2023-05-14] MEDS: oxyCODONE HCl Immed Release 5 MG TABLET 10 MG PO ×2 (00:25→12:05)
[2023-05-14] MEDS: Clindamycin Phosphate/D5W 600 MG/50 ML PIGGYBACK 100 MG IV ×3 (02:47→18:12)
[2023-05-14] MEDS: Omeprazole 20 MG CAPSULE.DR PO ×2 (05:52→16:37)
[2023-05-14] MEDS: Albuterol/Iprat 2.5/0.5MG 3 ML AMPUL.NEB INHALE ×4 (07:48→19:40)
[2023-05-14] MEDS: 0.9 % Sodium Chloride Flush 3 ML SYRINGE IVFLUSH ×3 (09:38→21:38)
[2023-05-14] MEDS: methADONE HCl 20 MG/2 ML ORAL.CONC 60 MG PO (09:39)
[2023-05-14] MEDS: Enoxaparin Sodium 100 MG/ML SYRINGE SUBCUT ×2 (09:39→21:38)
[2023-05-14] MEDS: Nicotine 14 MG PATCH.TD24 TRANSDERMA (09:39)
[2023-05-14] MEDS: Docusate Sodium 100 MG CAPSULE PO ×2 (09:39→21:38)
[2023-05-14] MEDS: Magnesium Oxide 400 MG TABLET PO ×2 (09:39→16:37)
[2023-05-14] MEDS: guaiFENesin LA 600 MG TAB.ER.12H 1200 MG PO ×2 (09:39→21:38)
--- NOTE | 2023-05-14 11:05 | HO.PM.IMPN ---
Subjective Subjective Date of Service: 05/14/23 Interval History: doing better since chest tube removed, generally weak Physical Exam Vital Signs: Vital Signs: Last Vital Signs Temp 97.4 F 05/14/23 07:00 Pulse 81 05/14/23 07:49 Resp 16 05/14/23 07:49 BP 132/51 L 05/14/23 07:00 Pulse Ox 96 05/14/23 07:00 O2 Del Method Nasal Cannula 05/14/23 07:00 O2 Flow Rate 3 05/14/23 07:00 BMI result Body Mass Index 30.5 Const: Other: General: AO X 3, no acute distress Resp: CTA bilateral CVS: S1,S2,RRR GI: +BS, NT, no distention Skin: No rash Neuro: motor grossly intact Psych: appropriate affect Objective Data Active Medications Acetaminophen (Acetaminophen 325 Mg Tablet) 650 mg PO Q6H PRN PRN Reason: Pain, Mild (Pain Scale 1-3) Last Admin: 05/13/23 20:23 Dose: 650 mg Documented By: JEROME Albuterol/Ipratropium (Albuterol/Iprat 2.5/0.5mg 3 Ml Ampul.Neb) 3 ml INHALE RQ4H WHILE AWAKE [facility] Last Admin: 05/14/23 07:48 Dose: 3 ml Documented By: CELIA Docusate Sodium (Docusate Sodium 100 Mg Capsule) 100 mg PO DAILY PRN PRN Reason: Constipation Docusate Sodium (Docusate Sodium 100 Mg Capsule) 100 mg PO BID [facility] Last Admin: 05/14/23 09:39 Dose: 100 mg Documented By: ALLISON Enoxaparin Sodium (Enoxaparin Sodium 100 Mg/Ml Syringe) 100 mg SUBCUT Q12H [facility] Last Admin: 05/14/23 09:39 Dose: 100 mg Documented By: ALLISON Guaifenesin (Guaifenesin La 600 Mg Tab.Er.12h) 1,200 mg PO BID [facility] Last Admin: 05/14/23 09:39 Dose: 1,200 mg Documented By: ALLISON Guaifenesin/Dextromethorphan (Guaifenesin Dm 200/20/10 Ml 10 Ml Syrup) 10 ml PO Q4H PRN PRN Reason: Cough Last Admin: 05/13/23 15:43 Dose: 10 ml Documented By: TEVIN Clindamycin Phosphate (Cleocin) 600 mg in 50 mls @ 100 mls/hr IV Q8H [facility] Last Infusion: 05/14/23 03:26 Dose: 0 mls/hr Documented By: JEROME Ceftriaxone Sodium 2 gm/ (Sodium Chloride) 50 mls @ 100 mls/hr IV Q24H [facility] Last Infusion: 05/13/23 14:36 Dose: 0 mls/hr Documented By: TEVIN Ibuprofen (Ibuprofen 400 Mg Tablet) 400 mg PO Q6H PRN PRN Reason: Pain, Mild (Pain Scale 1-3) Magnesium Oxide (Magnesium Oxide 400 Mg Tablet) 400 mg PO BIDPC [facility] Last Admin: 05/14/23 09:39 Dose: 400 mg Documented By: ALLISON Methadone HCl (Methadone Hcl 20 Mg/2 Ml Oral.Conc) 60 mg PO DAILY [facility] Last Admin: 05/14/23 09:39 Dose: 60 mg Documented By: ALLISON Nicotine (Nicotine 14 Mg Patch.Td24) 14 mg TRANSDERMA DAILY [facility] Last Admin: 05/14/23 09:39 Dose: 14 mg Documented By: ALLISON Omeprazole (Omeprazole 20 Mg Capsule.Dr) 20 mg PO BID@0630,1630 [facility] Last Admin: 05/14/23 05:52 Dose: 20 mg Documented By: JEROME Ondansetron HCl (Ondansetron Hcl 4 Mg/2 Ml Vial) 4 mg IVPUSH Q8H PRN PRN Reason: Nausea and Vomiting Oxycodone HCl (Oxycodone Hcl Immed Release 5 Mg Tablet) 10 mg PO Q6H PRN PRN Reason: Pain, Mild (Pain Scale 1-3) Last Admin: 05/14/23 00:25 Dose: 10 mg Documented By: JEROME Pharmacy Consult (Consult Rx Perform Med Rec) 1 each MISCELLANE ONCE PRN PRN Reason: Consult order Polyethylene Glycol (Polyethylene Glycol 3350 17 Gm Powd.Pack) 17 gm PO DAILY PRN PRN Reason: Constipation Sodium Chloride (0.9 % Sodium Chloride Flush 3 Ml Syringe) 3 ml IVFLUSH QSHIFT [facility] Last Admin: 05/14/23 09:38 Dose: 3 ml Documented By: HO.RIOSCEL Zolpidem Tartrate (Zolpidem Tartrate 5 Mg Tablet) 5 mg PO BEDTIME PRN PRN Reason: Insomnia Last Admin: 05/08/23 23:51 Dose: 5 mg Documented By: SIMON Labs 05/10/23 05:33 05/12/23 06:00 Microbiology Microbiology Results: Microbiology 05/10/23 18:10 Gram Stain - Final Pleural Fluid Routine Culture - Preliminary No growth to date. Anaerobic Culture - Preliminary No growth to date. Assessment and Plan (1) Transaminitis: Status: Acute (2) Bacteremia due to Streptococcus: Status: Acute (3) Pneumonia: Status: Acute Plan 37-year-old male with no significant PMH not on home medication who presents to the ED with?right-sided pleuritic chest pain and mostly nonproductive cough for the last couple of days.? Patient is homeless and has been feeling generally unwell the past few days.? Presents to ED today after significant worsening of symptoms. . Severe Sepsis 2/2 Strep Pyogenese bacteremia and empeyema that requiredd chest tube now discontinued. Continue Clindamycin(started 05/05) and? Vancomycin(started 05/07)taken off 05/08,on ceftriaxone(starting 05/08). ID recommends 4 weeks of Ceftriaxone, has PICC line Transaminitislikely 2/2 sepsis--improved Nicotine dependence--NRT Opioid use desorder--Methadone hypokalemia -repleted and resolved. corrected, no recent labs, check in the morning Full Code DVT Prophylaxis: Lovenox need for inpt: IV Abx for bacteremia/empayema Time Spent With Patient Time: Total time managing care of this patient today ____ minutes. Quality Stroke Does the patient have a stroke diagnosis?: No VTE Prior VTE?: No VTE Risk Level:: Medical - moderate - high VTE Device Contraindication: Treatment Not Indicated VTE Drug Contraindication: N/A - Med Ordered
[2023-05-14] MEDS: cefTRIAXone sodium 2 GM in 0.9 % Sodium Chloride 50 ML IV (12:03)
[2023-05-15] VITALS (10 sets, daily range): BP systolic 119–160; BP diastolic 57–87; PULSE 74–90; RESP 16–20; TEMP 36.1–37.2; O2SAT 91–100
[2023-05-15] MEDS: Clindamycin Phosphate/D5W 600 MG/50 ML PIGGYBACK 100 MG IV ×3 (02:02→18:50)
[2023-05-15] MEDS: guaiFENesin DM 200/20/10 ML 10 ML SYRUP PO (03:00)
[2023-05-15] MEDS: Omeprazole 20 MG CAPSULE.DR PO ×2 (04:52→18:49)
[2023-05-15] MEDS: Albuterol/Iprat 2.5/0.5MG 3 ML AMPUL.NEB INHALE ×4 (07:37→19:35)
[2023-05-15] MEDS: Magnesium Oxide 400 MG TABLET PO ×2 (08:15→18:50)
[2023-05-15] MEDS: oxyCODONE HCl Immed Release 5 MG TABLET 10 MG PO ×2 (08:15→14:02)
[2023-05-15] MEDS: Enoxaparin Sodium 100 MG/ML SYRINGE SUBCUT ×2 (08:16→20:57)
[2023-05-15] MEDS: guaiFENesin LA 600 MG TAB.ER.12H 1200 MG PO ×2 (08:16→20:58)
[2023-05-15] MEDS: Docusate Sodium 100 MG CAPSULE PO ×2 (08:16→20:58)
[2023-05-15] MEDS: Nicotine 14 MG PATCH.TD24 TRANSDERMA (08:16)
[2023-05-15] MEDS: methADONE HCl 20 MG/2 ML ORAL.CONC 60 MG PO (08:17)
[2023-05-15] MEDS: 0.9 % Sodium Chloride Flush 3 ML SYRINGE IVFLUSH ×2 (08:18→18:50)
--- NOTE | 2023-05-15 10:43 | MHC.CM.PN ---
PER HOSPITALIST PT CAN BE MEDICALLY CLEARED FOR D/C TO STR FOR 4WKS IV CEFTRIAXONE, PT AND WEAN OFF O2 PENDING INSURANCE AUTH/BED AVAILABILITY, PT WILL TXFR VIA [facility] FOR BLS D/T IVDU/PICC LINE.
--- NOTE | 2023-05-15 10:46 | MHC.CM.PN ---
CM MET W/PT TO DISCUSS DISPO, PT AGREEABLE TO PLAN TO STR AND WAS PROVIDED W/[employer] PAMPHLET AND RESOURCE GUIDE, PT REVIEWED RESOURCES IN BOOK AND INSTRUCTED PT TO REQUEST TO SPEAK W/SW AT [facility] FOR ASSISTANCE W/HALF-WAY PLACEMENT PT REPORTS HE IS STILL INTERESTED IN HALF-WAY PLACEMENT WHEN FINISHED W/STR.
--- NOTE | 2023-05-15 10:49 | HO.PM.IMPN ---
Subjective Subjective Date of Service: 05/15/23 Interval History: doing better since chest tube removed, generally weak, some productive cough Physical Exam Vital Signs: Vital Signs: Last Vital Signs Temp 98 F 05/15/23 07:00 Pulse 88 05/15/23 07:38 Resp 16 05/15/23 07:38 BP 142/65 H 05/15/23 07:00 Pulse Ox 93 05/15/23 07:00 O2 Del Method Nasal Cannula 05/15/23 07:00 O2 Flow Rate 2 05/15/23 07:00 BMI result Body Mass Index 30.5 Const: Other: General: AO X 3, no acute distress Resp: CTA bilateral CVS: S1,S2,RRR GI: +BS, NT, no distention Skin: No rash Neuro: motor grossly intact Psych: appropriate affect Objective Data Active Medications Acetaminophen (Acetaminophen 325 Mg Tablet) 650 mg PO Q6H PRN PRN Reason: Pain, Mild (Pain Scale 1-3) Last Admin: 05/13/23 20:23 Dose: 650 mg Documented By: JEROME Albuterol/Ipratropium (Albuterol/Iprat 2.5/0.5mg 3 Ml Ampul.Neb) 3 ml INHALE RQ4H WHILE AWAKE [facility] Last Admin: 05/15/23 07:37 Dose: 3 ml Documented By: CELIA Heparin Sodium (Porcine) 50 (units/ Sodium Chloride 5 ml) 0 units IVFLUSH QSHIFT [facility] Last Admin: 05/15/23 08:16 Dose: 50 unit Documented By: RUBY Docusate Sodium (Docusate Sodium 100 Mg Capsule) 100 mg PO DAILY PRN PRN Reason: Constipation Docusate Sodium (Docusate Sodium 100 Mg Capsule) 100 mg PO BID [facility] Last Admin: 05/15/23 08:16 Dose: 100 mg Documented By: RUBY Enoxaparin Sodium (Enoxaparin Sodium 100 Mg/Ml Syringe) 100 mg SUBCUT Q12H [facility] Last Admin: 05/15/23 08:16 Dose: 100 mg Documented By: RUBY Guaifenesin (Guaifenesin La 600 Mg Tab.Er.12h) 1,200 mg PO BID [facility] Last Admin: 05/15/23 08:16 Dose: 1,200 mg Documented By: RUBY Guaifenesin/Dextromethorphan (Guaifenesin Dm 200/20/10 Ml 10 Ml Syrup) 10 ml PO Q4H PRN PRN Reason: Cough Last Admin: 05/15/23 03:00 Dose: 10 ml Documented By: YEISON Clindamycin Phosphate (Cleocin) 600 mg in 50 mls @ 100 mls/hr IV Q8H [facility] Last Infusion: 05/15/23 02:53 Dose: 0 mls/hr Documented By: YEISON Ceftriaxone Sodium 2 gm/ (Sodium Chloride) 50 mls @ 100 mls/hr IV Q24H [facility] Last Infusion: 05/14/23 12:33 Dose: 0 mls/hr Documented By: ALLISON Ibuprofen (Ibuprofen 400 Mg Tablet) 400 mg PO Q6H PRN PRN Reason: Pain, Mild (Pain Scale 1-3) Magnesium Oxide (Magnesium Oxide 400 Mg Tablet) 400 mg PO BIDPC [facility] Last Admin: 05/15/23 08:15 Dose: 400 mg Documented By: RUBY Methadone HCl (Methadone Hcl 20 Mg/2 Ml Oral.Conc) 60 mg PO DAILY [facility] Last Admin: 05/15/23 08:17 Dose: 60 mg Documented By: RUBY Nicotine (Nicotine 14 Mg Patch.Td24) 14 mg TRANSDERMA DAILY [facility] Last Admin: 05/15/23 08:16 Dose: 14 mg Documented By: RUBY Omeprazole (Omeprazole 20 Mg Capsule.Dr) 20 mg PO BID@0630,1630 [facility] Last Admin: 05/15/23 04:52 Dose: 20 mg Documented By: YEISON Ondansetron HCl (Ondansetron Hcl 4 Mg/2 Ml Vial) 4 mg IVPUSH Q8H PRN PRN Reason: Nausea and Vomiting Oxycodone HCl (Oxycodone Hcl Immed Release 5 Mg Tablet) 10 mg PO Q6H PRN PRN Reason: Pain, Mild (Pain Scale 1-3) Last Admin: 05/15/23 08:15 Dose: 10 mg Documented By: RUBY Pharmacy Consult (Consult Rx Perform Med Rec) 1 each MISCELLANE ONCE PRN PRN Reason: Consult order Polyethylene Glycol (Polyethylene Glycol 3350 17 Gm Powd.Pack) 17 gm PO DAILY PRN PRN Reason: Constipation Sodium Chloride (0.9 % Sodium Chloride Flush 3 Ml Syringe) 3 ml IVFLUSH QSHIFT [facility] Last Admin: 05/15/23 08:18 Dose: 3 ml Documented By: RUBY Zolpidem Tartrate (Zolpidem Tartrate 5 Mg Tablet) 5 mg PO BEDTIME PRN PRN Reason: Insomnia Last Admin: 05/08/23 23:51 Dose: 5 mg Documented By: ODRISM Labs 05/10/23 05:33 05/12/23 06:00 Microbiology Microbiology Results: Microbiology 05/10/23 18:10 Gram Stain - Final Pleural Fluid Routine Culture - Final No growth after 2 days Anaerobic Culture - Preliminary No growth to date. Assessment and Plan (1) Transaminitis: Status: Acute (2) Bacteremia due to Streptococcus: Status: Acute (3) Pneumonia: Status: Acute Plan 37-year-old male with no significant PMH not on home medication who presents to the ED with?right-sided pleuritic chest pain and mostly nonproductive cough for the last couple of days.? Patient is homeless and has been feeling generally unwell the past few days.? Presents to ED today after significant worsening of symptoms. . Severe Sepsis 2/2 Strep Pyogenese bacteremia and empeyema that requiredd chest tube now discontinued. Continue Clindamycin(started 05/05) and? Vancomycin(started 05/07)taken off 05/08,on ceftriaxone(starting 05/08). ID recommends 4 weeks of Ceftriaxone, has PICC line Transaminitislikely 2/2 sepsis--improved Nicotine dependence--NRT Opioid use desorder--Methadone hypokalemia -repleted and resolved. corrected, no recent labs, check in the morning Full Code DVT Prophylaxis: Lovenox need for inpt: IV Abx for bacteremia/empayema, to STR when bed available Time Spent With Patient Time: Total time managing care of this patient today ____ minutes. Quality Stroke Does the patient have a stroke diagnosis?: No VTE Prior VTE?: No VTE Risk Level:: Medical - moderate - high VTE Device Contraindication: Treatment Not Indicated VTE Drug Contraindication: N/A - Med Ordered
[2023-05-15] MEDS: cefTRIAXone sodium 2 GM in 0.9 % Sodium Chloride 50 ML IV (14:02)
[2023-05-16] VITALS (11 sets, daily range): BP systolic 125–152; BP diastolic 55–64; PULSE 76–85; RESP 16–20; TEMP 36.1–36.9; O2SAT 93–98
[2023-05-16] MEDS: Omeprazole 20 MG CAPSULE.DR PO ×2 (05:10→15:39)
[2023-05-16] MEDS: Albuterol/Iprat 2.5/0.5MG 3 ML AMPUL.NEB INHALE ×4 (08:08→19:41)
--- NOTE | 2023-05-16 08:19 | HO.PM.IMPN ---
Subjective Subjective Date of Service: 05/16/23 Interval History: continue to slowly improve, no new issues at this time, still on oxygen Physical Exam Vital Signs: Vital Signs: Last Vital Signs Temp 98.3 F 05/16/23 03:00 Pulse 76 05/16/23 08:08 Resp 16 05/16/23 08:08 BP 125/57 L 05/16/23 03:00 Pulse Ox 94 05/16/23 03:00 O2 Del Method Nasal Cannula 05/16/23 03:00 O2 Flow Rate 2 05/16/23 03:00 BMI result Body Mass Index 30.5 Const: Other: General: AO X 3, no acute distress Resp: CTA bilateral CVS: S1,S2,RRR GI: +BS, NT, no distention Skin: No rash Neuro: motor grossly intact Psych: appropriate affect Objective Data Active Medications Acetaminophen (Acetaminophen 325 Mg Tablet) 650 mg PO Q6H PRN PRN Reason: Pain, Mild (Pain Scale 1-3) Last Admin: 05/13/23 20:23 Dose: 650 mg Documented By: JEROME Albuterol/Ipratropium (Albuterol/Iprat 2.5/0.5mg 3 Ml Ampul.Neb) 3 ml INHALE RQ4H WHILE AWAKE [facility] Last Admin: 05/16/23 08:08 Dose: 3 ml Documented By: FABIO Heparin Sodium (Porcine) 50 (units/ Sodium Chloride 5 ml) 0 units IVFLUSH QSHIFT [facility] Last Admin: 05/15/23 20:57 Dose: 50 unit Documented By: YEISON Docusate Sodium (Docusate Sodium 100 Mg Capsule) 100 mg PO DAILY PRN PRN Reason: Constipation Docusate Sodium (Docusate Sodium 100 Mg Capsule) 100 mg PO BID [facility] Last Admin: 05/15/23 20:58 Dose: 100 mg Documented By: YEISON Enoxaparin Sodium (Enoxaparin Sodium 100 Mg/Ml Syringe) 100 mg SUBCUT Q12H [facility] Last Admin: 05/15/23 20:57 Dose: 100 mg Documented By: YEISON Guaifenesin (Guaifenesin La 600 Mg Tab.Er.12h) 1,200 mg PO BID [facility] Last Admin: 05/15/23 20:58 Dose: 1,200 mg Documented By: YEISON Guaifenesin/Dextromethorphan (Guaifenesin Dm 200/20/10 Ml 10 Ml Syrup) 10 ml PO Q4H PRN PRN Reason: Cough Last Admin: 05/15/23 03:00 Dose: 10 ml Documented By: YEISON Ceftriaxone Sodium 2 gm/ (Sodium Chloride) 50 mls @ 100 mls/hr IV Q24H [facility] Last Infusion: 05/15/23 14:46 Dose: 0 mls/hr Documented By: CRISTIANO Ibuprofen (Ibuprofen 400 Mg Tablet) 400 mg PO Q6H PRN PRN Reason: Pain, Mild (Pain Scale 1-3) Magnesium Oxide (Magnesium Oxide 400 Mg Tablet) 400 mg PO BIDPC [facility] Last Admin: 05/15/23 18:50 Dose: 400 mg Documented By: CRISTIANO Methadone HCl (Methadone Hcl 20 Mg/2 Ml Oral.Conc) 60 mg PO DAILY [facility] Last Admin: 05/15/23 08:17 Dose: 60 mg Documented By: RUBY Nicotine (Nicotine 14 Mg Patch.Td24) 14 mg TRANSDERMA DAILY [facility] Last Admin: 05/15/23 08:16 Dose: 14 mg Documented By: RUBY Omeprazole (Omeprazole 20 Mg Capsule.Dr) 20 mg PO BID@0630,1630 [facility] Last Admin: 05/16/23 05:10 Dose: 20 mg Documented By: YEISON Ondansetron HCl (Ondansetron Hcl 4 Mg/2 Ml Vial) 4 mg IVPUSH Q8H PRN PRN Reason: Nausea and Vomiting Oxycodone HCl (Oxycodone Hcl Immed Release 5 Mg Tablet) 10 mg PO Q6H PRN PRN Reason: Pain, Mild (Pain Scale 1-3) Last Admin: 05/15/23 14:02 Dose: 10 mg Documented By: RUBY Pharmacy Consult (Consult Rx Perform Med Rec) 1 each MISCELLANE ONCE PRN PRN Reason: Consult order Polyethylene Glycol (Polyethylene Glycol 3350 17 Gm Powd.Pack) 17 gm PO DAILY PRN PRN Reason: Constipation Sodium Chloride (0.9 % Sodium Chloride Flush 3 Ml Syringe) 3 ml IVFLUSH QSHIFT [facility] Last Admin: 05/15/23 21:11 Dose: Not Given Documented By: YEISON Non-Admin Reason: Previously Administered Zolpidem Tartrate (Zolpidem Tartrate 5 Mg Tablet) 5 mg PO BEDTIME PRN PRN Reason: Insomnia Last Admin: 05/08/23 23:51 Dose: 5 mg Documented By: SIMON Labs 05/10/23 05:33 05/12/23 06:00 Microbiology Microbiology Results: Microbiology 05/10/23 18:10 Gram Stain - Final Pleural Fluid Routine Culture - Final No growth after 2 days Anaerobic Culture - Preliminary No growth to date. Assessment and Plan (1) Transaminitis: Status: Acute (2) Bacteremia due to Streptococcus: Status: Acute (3) Pneumonia: Status: Acute Plan 37-year-old male with no significant PMH not on home medication who presents to the ED with?right-sided pleuritic chest pain and mostly nonproductive cough for the last couple of days.? Patient is homeless and has been feeling generally unwell the past few days.? Presents to ED today after significant worsening of symptoms. . Severe Sepsis 2/2 Strep Pyogenese bacteremia and empeyema that requiredd chest tube, tube removed after several days Continue Clindamycin(started 05/05) and? Vancomycin(started 05/07)taken off 05/08,on ceftriaxone(starting 05/08). ID recommends 4 weeks of Ceftriaxone, has PICC line since 05/10 Transaminitislikely 2/2 sepsis--improved Nicotine dependence--NRT Opioid use desorder--Methadone hypokalemia -repleted and resolved. corrected, no recent labs, check in the morning Full Code DVT Prophylaxis: Lovenox need for inpt: IV Abx for bacteremia/empayema, to STR when bed available Time Spent With Patient Time: Total time managing care of this patient today ____ minutes. Quality Stroke Does the patient have a stroke diagnosis?: No VTE Prior VTE?: No VTE Risk Level:: Medical - moderate - high VTE Device Contraindication: Treatment Not Indicated VTE Drug Contraindication: N/A - Med Ordered
--- NOTE | 2023-05-16 09:18 | MHC.CM.PN ---
CM CONT'S TO WAIT FOR A RESPONSE FROM [facility], CM UPDATED REF AND SENT TO [facility], CM AWAITING RESPONSE AND WILL CONT TO FOLLOW D/C NEEDS.
[2023-05-16] MEDS: Magnesium Oxide 400 MG TABLET PO ×2 (09:41→15:39)
[2023-05-16] MEDS: guaiFENesin LA 600 MG TAB.ER.12H 1200 MG PO ×2 (09:41→20:35)
[2023-05-16] MEDS: Docusate Sodium 100 MG CAPSULE PO ×2 (09:41→20:35)
[2023-05-16] MEDS: methADONE HCl 20 MG/2 ML ORAL.CONC 60 MG PO (09:42)
[2023-05-16] MEDS: Nicotine 14 MG PATCH.TD24 TRANSDERMA (09:42)
[2023-05-16] MEDS: Enoxaparin Sodium 100 MG/ML SYRINGE SUBCUT ×2 (09:43→20:35)
[2023-05-16] MEDS: oxyCODONE HCl Immed Release 5 MG TABLET 10 MG PO ×2 (09:50→20:35)
[2023-05-16] MEDS: cefTRIAXone sodium 2 GM in 0.9 % Sodium Chloride 50 ML IV (13:44)
[2023-05-16] MEDS: 0.9 % Sodium Chloride Flush 3 ML SYRINGE IVFLUSH (20:36)
[2023-05-17] VITALS (9 sets, daily range): BP systolic 138–164; BP diastolic 59–79; PULSE 75–84; RESP 16–20; TEMP 35.7–36.7; O2SAT 94–97
[2023-05-17] MEDS: Omeprazole 20 MG CAPSULE.DR PO ×2 (05:27→17:31)
[2023-05-17] MEDS: oxyCODONE HCl Immed Release 5 MG TABLET 10 MG PO (05:28)
[2023-05-17] MEDS: Albuterol/Iprat 2.5/0.5MG 3 ML AMPUL.NEB INHALE ×3 (08:40→16:48)
--- NOTE | 2023-05-17 09:29 | HO.PM.IMPN ---
Subjective Subjective Date of Service: 05/17/23 Interval History: continue to slowly improve, no new issues at this time, still on oxygen Physical Exam Vital Signs: Vital Signs: Last Vital Signs Temp 97.2 F 05/17/23 07:00 Pulse 77 05/17/23 08:40 Resp 16 05/17/23 08:40 BP 144/79 H 05/17/23 07:00 Pulse Ox 95 05/17/23 07:00 O2 Del Method Nasal Cannula 05/17/23 07:00 O2 Flow Rate 2 05/17/23 07:00 BMI result Body Mass Index 30.5 Const: Other: General: AO X 3, no acute distress Resp: CTA bilateral CVS: S1,S2,RRR GI: +BS, NT, no distention Skin: No rash Neuro: motor grossly intact Psych: appropriate affect HEENT: Other: General: AO X 3, no acute distress Resp: CTA bilateral CVS: S1,S2,RRR GI: +BS, NT, no distention Skin: No rash Neuro: motor grossly intact Psych: appropriate affect Objective Data Active Medications Acetaminophen (Acetaminophen 325 Mg Tablet) 650 mg PO Q6H PRN PRN Reason: Pain, Mild (Pain Scale 1-3) Last Admin: 05/13/23 20:23 Dose: 650 mg Documented By: JEROME Albuterol/Ipratropium (Albuterol/Iprat 2.5/0.5mg 3 Ml Ampul.Neb) 3 ml INHALE RQ4H WHILE AWAKE [facility] Last Admin: 05/17/23 08:40 Dose: 3 ml Documented By: FABIO Heparin Sodium (Porcine) 50 (units/ Sodium Chloride 5 ml) 0 units IVFLUSH QSHIFT [facility] Last Admin: 05/16/23 23:21 Dose: 50 unit Documented By: CECE Docusate Sodium (Docusate Sodium 100 Mg Capsule) 100 mg PO DAILY PRN PRN Reason: Constipation Docusate Sodium (Docusate Sodium 100 Mg Capsule) 100 mg PO BID [facility] Last Admin: 05/16/23 20:35 Dose: 100 mg Documented By: CECE Enoxaparin Sodium (Enoxaparin Sodium 100 Mg/Ml Syringe) 100 mg SUBCUT Q12H [facility] Last Admin: 05/16/23 20:35 Dose: 100 mg Documented By: HO.KUDRYAD Guaifenesin (Guaifenesin La 600 Mg Tab.Er.12h) 1,200 mg PO BID [facility] Last Admin: 05/16/23 20:35 Dose: 1,200 mg Documented By: CECE Guaifenesin/Dextromethorphan (Guaifenesin Dm 200/20/10 Ml 10 Ml Syrup) 10 ml PO Q4H PRN PRN Reason: Cough Last Admin: 05/15/23 03:00 Dose: 10 ml Documented By: YEISON Ceftriaxone Sodium 2 gm/ (Sodium Chloride) 50 mls @ 100 mls/hr IV Q24H [facility] Last Infusion: 05/16/23 14:45 Dose: 0 mls/hr Documented By: CRISTIANO Ibuprofen (Ibuprofen 400 Mg Tablet) 400 mg PO Q6H PRN PRN Reason: Pain, Mild (Pain Scale 1-3) Magnesium Oxide (Magnesium Oxide 400 Mg Tablet) 400 mg PO BIDPC [facility] Last Admin: 05/16/23 15:39 Dose: 400 mg Documented By: CRISTIANO Methadone HCl (Methadone Hcl 20 Mg/2 Ml Oral.Conc) 60 mg PO DAILY [facility] Last Admin: 05/16/23 09:42 Dose: 60 mg Documented By: ARMAAN Nicotine (Nicotine 14 Mg Patch.Td24) 14 mg TRANSDERMA DAILY [facility] Last Admin: 05/16/23 09:42 Dose: 14 mg Documented By: ARMAAN Omeprazole (Omeprazole 20 Mg Capsule.Dr) 20 mg PO BID@0630,1630 [facility] Last Admin: 05/17/23 05:27 Dose: 20 mg Documented By: CECE Ondansetron HCl (Ondansetron Hcl 4 Mg/2 Ml Vial) 4 mg IVPUSH Q8H PRN PRN Reason: Nausea and Vomiting Oxycodone HCl (Oxycodone Hcl Immed Release 5 Mg Tablet) 10 mg PO Q6H PRN PRN Reason: Pain, Mild (Pain Scale 1-3) Last Admin: 05/10/23 00:00 Dose: 10 mg Documented By: CRISTIANO Pharmacy Consult (Consult Rx Perform Med Rec) 1 each MISCELLANE ONCE PRN PRN Reason: Consult order Polyethylene Glycol (Polyethylene Glycol 3350 17 Gm Powd.Pack) 17 gm PO DAILY PRN PRN Reason: Constipation Sodium Chloride (0.9 % Sodium Chloride Flush 3 Ml Syringe) 3 ml IVFLUSH QSHIFT [facility] Last Admin: 05/16/23 20:36 Dose: 3 ml Documented By: CECE Zolpidem Tartrate (Zolpidem Tartrate 5 Mg Tablet) 5 mg PO BEDTIME PRN PRN Reason: Insomnia Last Admin: 05/08/23 23:51 Dose: 5 mg Documented By: FRANKIERISM Labs 05/10/23 05:33 05/12/23 06:00 Microbiology Microbiology Results: Microbiology 05/10/23 18:10 Gram Stain - Final Pleural Fluid Routine Culture - Final No growth after 2 days Anaerobic Culture - Preliminary No growth to date. Assessment and Plan (1) Transaminitis: Status: Acute (2) Bacteremia due to Streptococcus: Status: Acute (3) Pneumonia: Status: Acute Plan 37-year-old male with no significant PMH not on home medication who presents to the ED with?right-sided pleuritic chest pain and mostly nonproductive cough for the last couple of days.? Patient is homeless and has been feeling generally unwell the past few days.? Presents to ED today after significant worsening of symptoms. . Severe Sepsis 2/2 Strep Pyogenese bacteremia and empeyema that requiredd chest tube on 05/10 and removed 05/13 WAs on Clindamycin(started 05/05) and? Vancomycin(started 05/07) taken off 05/08, Started ceftriaxone(starting 05/08). ID recommends 4 weeks of Ceftriaxone and 2 weeks of IV Flagyl has PICC line since 05/10 Transaminitis likely 2/2 sepsis--improved Nicotine dependence--NRT Opioid use desorder--Methadone hypokalemia -repleted and resolved. corrected, no recent labs, check in the morning Full Code DVT Prophylaxis: Lovenox need for inpt: IV Abx for bacteremia/empayema, to STR when bed available, possible dc alter today Time Spent With Patient Time: Total time managing care of this patient today ____ minutes. Quality Stroke Does the patient have a stroke diagnosis?: No VTE Prior VTE?: No VTE Risk Level:: Medical - moderate - high VTE Device Contraindication: Treatment Not Indicated VTE Drug Contraindication: N/A - Med Ordered
[2023-05-17] MEDS: 0.9 % Sodium Chloride Flush 3 ML SYRINGE IVFLUSH ×3 (11:34→21:30)
[2023-05-17] MEDS: Docusate Sodium 100 MG CAPSULE PO ×2 (11:37→21:29)
[2023-05-17] MEDS: Magnesium Oxide 400 MG TABLET PO ×2 (11:38→17:31)
[2023-05-17] MEDS: methADONE HCl 20 MG/2 ML ORAL.CONC 60 MG PO (11:38)
[2023-05-17] MEDS: guaiFENesin LA 600 MG TAB.ER.12H 1200 MG PO ×2 (11:38→21:29)
[2023-05-17] MEDS: Enoxaparin Sodium 100 MG/ML SYRINGE SUBCUT ×2 (11:38→21:29)
[2023-05-17] MEDS: Nicotine 14 MG PATCH.TD24 TRANSDERMA (11:39)
--- NOTE | 2023-05-17 13:08 | MHC.CM.PN ---
Addendum entered by Michelle Packer RN 05/17/23 15:03: CM RECEIVED A MESSAGE FROM [facility] THAT THEY COULD NOT CONFIRM W/[facility] THAT PT WAS SET UP, CM HAS SENT 3 ADDITIONAL MESSAGES TO [facility] HE WAS SET UP AT [facility] NOT [facility], CM AWAITING CALL OR MESSAGE BACK HOWEVER IF THIS DOES NOT HAPPEN PT WILL LIKELY BE HELD ANOTHER NIGHT. Original Note: MDS/MH FORM COMPLETED AND SENT TO [facility], PER [facility]IA[facility] PT WILL BE ABLE TO D/C LATER TODAY ONCE THEY VERIFY PT IS SET UP [facility] WHICH WAS DONE LAST WEEK BY RESERVATION CLERK, TRANSPORT TO BE SET UP FOR 4PM VIA [facility]
--- NOTE | 2023-05-17 13:49 | PM.DS ---
DS: Providers Provider Date of Service: 05/20/23 Date of admission: 05/05/23 14:22 Primary care physician: None Physician Consults: 05/05/23 17:07 Addiction Medicine Routine Consulting Provider: Addiction Covering Reason for consultation: IVDU 05/05/23 18:43 Consult to General Surgery [place]ine [place] [facility] [place] Reason for consultation: Lung abscess with severe sepsis 05/06/23 07:47 Consult to Pulmonology Routine Consulting [place] [facility] [place] Reason for consultation: Severe sepsis, Suspected lung abscess for eval and rec. 05/06/23 07:48 Consult to Infectious Diseases Routine Consulting [place] [facility] [place] Reason for consultation: GPC bacteremia, suspected lung abscess DS: Diagnosis Discharge Diagnosis (1) Transaminitis: Status: Acute (2) Bacteremia due to Streptococcus: Status: Acute (3) Pneumonia: Status: Acute DS: Summary Hospital Course Hospital Course: Chief Complaint: SOB, cough, painful breathing Pt is a 37-year-old male with no significant PMH not on home medication who presents to the ED with?right-sided pleuritic chest pain and mostly nonproductive cough for the last couple of days.? Patient is homeless and has been feeling generally unwell the past few days.? Presents to ED today after significant worsening of symptoms.? Patient has been experiencing shortness of breath, right-sided chest pain with inspiration, and mostly nonproductive cough.? Patient has been feeling fatigued. Denies fever, chills, nausea, vomiting, abdominal pain.? No chest pain/pressure, palpitations.? Denies headache or vision changes.? Patient is an active smoker of 1 pack per day.? Patient denies any alcohol, marijuana, or illicit substance use. In the ED patient was febrile to 102.2, tachypneic up to 49, tachycardic up to 120, hypertensive up to 165/86, satting 90% O2 on RA. Labs were significant for leukocytosis of 27.0, H&H 13.2/41.7, lactic acid of 2.5, total bilirubin 1.6, AST of 50, ALT 43, albumin 2.8.? Electrolytes WNL, troponin, BNP negative. CXR showed prominent right lower and mild right upper lobe patchy airspace consistent with multifocal pneumonia. EKG demonstrated sinus tachycardia without evidence of ST elevations or depressions. Pt was treated with IVF, ceftriaxone, vancomycin, ketorolac, and acetaminophen. Pt will be admitted to the hospital for treatment of sepsis in the setting of multifocal pneumonia. Hospital course: Sepsis 37-year-old male homeless with no significant PMH not on home medication, history of opioid use desorder who presented to the ED on 05/05/23 with?right-sided pleuritic chest pain, cough and generally unwell for several days.? He was febrile to 102, tachypnia with respiratory rate nearly 50, tachycardia and hypoxic. Labs noted for BC of 27K. CXR showed prominent right lower and mild right upper lobe patchy airspace consistent with multifocal pneumonia, he was hypoxic and require O2.. He was admitted for sepsis related to pneumonia, with acute hypoxic respiratory failure. He was initiated on Ceftriaxone and Vancomycin, blood cultures from 05/05 would later grow Strep Pyogenes and repeat cultures the following day 05/06/23 have been negative to date. He has been treated with Ceftriaxone and ID is recommending 4 weeks of IV Ceftriaxone ending 06/02 and PO Flagyl 500 bid for 2 weeks to cover aneorobes ending May 31, 2023. Of note repeat CXR on 05/10/23 showed enlarged right pleural effusion and the same day he underwent thoracentesis with Pig tail catheter insertion by IR and this was later removed on 05/13/[address] Conrad from thoracic surgery. Overall he's doing better, generally decondition, and still on O2 but showing improvement but will benefit from short term rehab for less than 30 days. Vital asre stable Hypoxia resolved. Left upper extremity DVT seen on US on admission showing Positive for DVT in the brachial and radial veins as well as superficial thrombophlebitis in the cephalic and median cubital vein.--He has been on therapeutic Lovenox since 05/05/23 and will be switched to Apixiban 5 mg twice daily and should be treated for 3 months ending 08/03/23. DVT propably precipitated by IV injection Transaminitis likely due to sepsis--improved Nicotine dependence--NRT Opioid use desorder--Methadone hypOkalemia -repleted and resolved. corrected, no recent labs, check in the morning Final diagnoses Acute hypoxic respriatory failure Pneumonia empayeme Strep Pyogenese Sepsis and bacteremia Opioid use desorder Hyponakalemia Tobaccor use desorder Left upper extremity DVT Time Spent with Patient Time attestation: Total time managing care of this patient today ____ minutes. Discharge coordination time: Greater than 30 minutes Quality: Safe Use of Opioids Does Pt have an Active Cancer Diagnosis on the Problem List?: No Quality: Stroke Does the patient have a stroke diagnosis?: No Physical Exam Vital Signs: Vital Signs: Selected Entries 05/20/23 11:22 Temperature 97.0 F Pulse Rate 67 Respiratory Rate 20 Blood Pressure 137/76 Pulse Oximetry 94 Oxygen Delivery Me thod Room Air Const: Other: General: AO X 3, no acute distress Resp: CTA bilateral CVS: S1,S2,RRR GI: +BS, NT, no distention Skin: No rash Neuro: motor grossly intact Psych: appropriate affect DS: Data Data Completed and Pending Completed studies during hospitalization [Text1]: Pending at discharge 05/10/23 18:25 Cytology [PTH] Routine Labs on day of discharge: Preliminary micro results at discharge 05/10/23 18:10 Anaerobic Culture - Preliminary Pleural Fluid No growth to date. Discharge Plan Discharge Anticipated Discharge Date/Time: 05/20/23 12:33 Patient Disposition: Xfer SNF Discharge Diagnosis: Sepsis, pneumonia. Strep myogenesis bacteremia, DVT Referrals: [facility] [Other] - 1 Month ([facility] WILL BE YOUR OUPT METHADONE CLINIC ONCE YOU LEAVE SHORT TERM REHAB. ) [facility] [Outside] - 1 Day (SHORT TERM REHAB) Physician,None [Primary Care Provider] - 1 Week ([facility] will call you with new patient appointment when they have one available. If you have any questions call office [phone]) Discharge Medications: New ceftriaxone 2 gram Recon Soln 2 g IV Q24H 16 Days Qty: 16 0RF Eliquis 5 mg tablet 5 mg PO BID Qty: 60 0RF nicotine 14 mg/24 hr Patch 24 Hour 14 mg transdermal DAILY Qty: 30 0RF methadone [Methadose] 10 mg/mL Concentrate 60 mg PO DAILY Qty: 30 0RF Rx Instructions: Partial Fill upon patient request. metronidazole 500 mg Tablet 500 mg PO Q12H Qty: 27 0RF oxycodone 5 mg Tablet 5 mg PO Q6H PRN (Reason: Pain, Severe (Pain Scale 7-10)) Qty: 12 0RF Rx Instructions: Partial Fill upon patient request. Discharge Orders: Discharge Order (Routine); Ordered 05/20/23 Ordered By: Anderson Tapia Diet: Advance to usual diet Activity on Discharge: As tolerated Stand Alone Forms: Patient Portal Discharge page Care Plan Goals: Full recovery from pneumonia, DVT and abstinence from drug Health Concerns: pneumonia, empayeme Plan of Treatment: Take ceftriaxone 2 grams IV daily until June 02, 2023 Take Flagyl 500 mg PO twice daily for 2 weeks until May 31, 2023 Take Eliquis 5 mg daily for to treat DVT x 3 months--ending august 03, 2023 Assessment: as above
[2023-05-17] MEDS: cefTRIAXone sodium 2 GM in 0.9 % Sodium Chloride 50 ML IV (17:31)
[2023-05-18] VITALS (9 sets, daily range): BP systolic 113–179; BP diastolic 53–67; PULSE 69–86; RESP 18–20; TEMP 35.7–36.6; O2SAT 91–98
[2023-05-18] MEDS: Omeprazole 20 MG CAPSULE.DR PO ×2 (06:05→16:54)
[2023-05-18] MEDS: Albuterol/Iprat 2.5/0.5MG 3 ML AMPUL.NEB INHALE ×3 (07:51→15:12)
[2023-05-18] MEDS: guaiFENesin LA 600 MG TAB.ER.12H 1200 MG PO ×2 (08:29→20:28)
[2023-05-18] MEDS: Magnesium Oxide 400 MG TABLET PO ×2 (08:29→16:54)
[2023-05-18] MEDS: Docusate Sodium 100 MG CAPSULE PO ×2 (08:30→08:42)
[2023-05-18] MEDS: Nicotine 14 MG PATCH.TD24 TRANSDERMA (08:30)
[2023-05-18] MEDS: Enoxaparin Sodium 100 MG/ML SYRINGE SUBCUT ×2 (08:32→20:25)
[2023-05-18] MEDS: 0.9 % Sodium Chloride Flush 3 ML SYRINGE IVFLUSH ×2 (08:34→16:54)
[2023-05-18] MEDS: methADONE HCl 20 MG/2 ML ORAL.CONC 60 MG PO (08:41)
[2023-05-18] MEDS: Acetaminophen 325 MG TABLET 650 MG PO (08:49)
--- NOTE | 2023-05-18 09:16 | HO.PM.IMPN ---
Subjective Subjective Date of Service: 05/18/23 Interval History: cimproving, no new issues discharge cancelled d/t no arrangement made for methadone on outpatient basis Physical Exam Vital Signs: Vital Signs: Last Vital Signs Temp 96.3 F L 05/18/23 07:46 Pulse 75 05/18/23 07:54 Resp 18 05/18/23 07:54 BP 135/53 L 05/18/23 07:46 Pulse Ox 98 05/18/23 07:46 O2 Del Method Nasal Cannula 05/18/23 07:46 O2 Flow Rate 2 05/18/23 07:46 BMI result Body Mass Index 30.5 Const: Other: General: AO X 3, no acute distress Resp: CTA bilateral CVS: S1,S2,RRR GI: +BS, NT, no distention Skin: No rash Neuro: motor grossly intact Psych: appropriate affect Objective Data Active Medications Acetaminophen (Acetaminophen 325 Mg Tablet) 650 mg PO Q6H PRN PRN Reason: Pain, Mild (Pain Scale 1-3) Last Admin: 05/18/23 08:49 Dose: 650 mg Documented By: FRANCISCO Albuterol/Ipratropium (Albuterol/Iprat 2.5/0.5mg 3 Ml Ampul.Neb) 3 ml INHALE RQ4H WHILE AWAKE [facility] Last Admin: 05/18/23 07:51 Dose: 3 ml Documented By: CELIA Heparin Sodium (Porcine) 50 (units/ Sodium Chloride 5 ml) 0 units IVFLUSH QSHIFT [facility] Last Admin: 05/18/23 08:34 Dose: 50 unit Documented By: FRANCISCO Docusate Sodium (Docusate Sodium 100 Mg Capsule) 100 mg PO DAILY PRN PRN Reason: Constipation Last Admin: 05/18/23 08:30 Dose: 100 mg Documented By: FRANCISCO Docusate Sodium (Docusate Sodium 100 Mg Capsule) 100 mg PO BID [facility] Last Admin: 05/18/23 08:42 Dose: 100 mg Documented By: FRANCISCO Enoxaparin Sodium (Enoxaparin Sodium 100 Mg/Ml Syringe) 100 mg SUBCUT Q12H [facility] Last Admin: 05/18/23 08:32 Dose: 100 mg Documented By: FRANCISCO Guaifenesin (Guaifenesin La 600 Mg Tab.Er.12h) 1,200 mg PO BID [facility] Last Admin: 05/18/23 08:29 Dose: 1,200 mg Documented By: FRANCISCO Guaifenesin/Dextromethorphan (Guaifenesin Dm 200/20/10 Ml 10 Ml Syrup) 10 ml PO Q4H PRN PRN Reason: Cough Last Admin: 05/15/23 03:00 Dose: 10 ml Documented By: YEISON Ceftriaxone Sodium 2 gm/ (Sodium Chloride) 50 mls @ 100 mls/hr IV Q24H [facility] Last Infusion: 05/17/23 19:12 Dose: 0 mls/hr Documented By: CASEY Ibuprofen (Ibuprofen 400 Mg Tablet) 400 mg PO Q6H PRN PRN Reason: Pain, Mild (Pain Scale 1-3) Magnesium Oxide ([facility]esium Oxide 400 Mg Tablet) [facility] Last Admin: 05/18/23 08:29 Dose: 400 mg Documented By: FRANCISCO Methadone HCl (Methadone Hcl 20 Mg/2 Ml Oral.Conc) 60 mg PO DAILY [facility] Last Admin: 05/18/23 08:41 Dose: 60 mg Documented By: FRANCISCO Metronidazole (Metronidazole 500 Mg Tablet) 500 mg PO Q12H [facility] Last Admin: 05/18/23 03:12 Dose: 500 mg Documented By: CASEY Nicotine (Nicotine 14 Mg Patch.Td24) 14 mg TRANSDERMA DAILY [facility] Last Admin: 05/18/23 08:30 Dose: 14 mg Documented By: FRANCISCO Omeprazole (Omeprazole 20 Mg Capsule.Dr) 20 mg PO BID@0630,1630 [facility] Last Admin: 05/18/23 06:05 Dose: 20 mg Documented By: CASEY Ondansetron HCl (Ondansetron Hcl 4 Mg/2 Ml Vial) 4 mg IVPUSH Q8H PRN PRN Reason: Nausea and Vomiting Pharmacy Consult (Consult Rx Perform Med Rec) 1 each MISCELLANE ONCE PRN PRN Reason: Consult order Polyethylene Glycol (Polyethylene Glycol 3350 17 Gm Powd.Pack) 17 gm PO DAILY PRN PRN Reason: Constipation Sodium Chloride (0.9 % Sodium Chloride Flush 3 Ml Syringe) 3 ml IVFLUSH QSHIFT [facility] Last Admin: 05/18/23 08:34 Dose: 3 ml Documented By: FRANCISCO Labs 05/10/23 05:33 05/12/23 06:00 Microbiology Microbiology Results: Microbiology 05/10/23 18:10 Gram Stain - Final Pleural Fluid Routine Culture - Final No growth after 2 days Anaerobic Culture - Preliminary No growth to date. Assessment and Plan (1) Transaminitis: Status: Acute (2) Bacteremia due to Streptococcus: Status: Acute (3) Pneumonia: Status: Acute Plan 37-year-old male with no significant PMH not on home medication who presents to the ED with?right-sided pleuritic chest pain and mostly nonproductive cough for the last couple of days.? Patient is homeless and has been feeling generally unwell the past few days.? Presents to ED today after significant worsening of symptoms. . Severe Sepsis 2/2 Strep Pyogenese bacteremia and empeyema that requiredd chest tube on 05/10 and removed 05/13 WAs on Clindamycin(started 05/05) and? Vancomycin(started 05/07) taken off 05/08, Started ceftriaxone(starting 05/08). ID recommends 4 weeks of Ceftriaxone and 2 weeks of IV Flagyl has PICC line since 05/10 Transaminitis likely 2/2 sepsis--improved Nicotine dependence--NRT Opioid use desorder--Methadone hypokalemia -repleted and resolved. corrected, no recent labs, check in the morning Full Code DVT Prophylaxis: Lovenox need for inpt: IV Abx for bacteremia/empayema, to STR when bed available, possible dc alter today if mthadone can be arranged on outpatient basis Time Spent With Patient Time: Total time managing care of this patient today ____ minutes. Quality Stroke Does the patient have a stroke diagnosis?: No VTE Prior VTE?: No VTE Risk Level:: Medical - moderate - high VTE Device Contraindication: Treatment Not Indicated VTE Drug Contraindication: N/A - Med Ordered
[2023-05-18] MEDS: cefTRIAXone sodium 2 GM in 0.9 % Sodium Chloride 50 ML IV (13:24)
[2023-05-18] MEDS: Ibuprofen 400 MG TABLET PO (20:27)
[2023-05-19] VITALS (9 sets, daily range): BP systolic 114–159; BP diastolic 53–83; PULSE 71–99; RESP 14–20; TEMP 35.9–36.6; O2SAT 91–98
[2023-05-19] MEDS: 0.9 % Sodium Chloride Flush 3 ML SYRINGE IVFLUSH ×3 (00:02→23:38)
[2023-05-19] MEDS: Omeprazole 20 MG CAPSULE.DR PO ×2 (06:05→16:31)
[2023-05-19] MEDS: Albuterol/Iprat 2.5/0.5MG 3 ML AMPUL.NEB INHALE ×2 (07:51→11:11)
[2023-05-19] MEDS: guaiFENesin LA 600 MG TAB.ER.12H 1200 MG PO ×2 (08:08→21:50)
[2023-05-19] MEDS: Nicotine 14 MG PATCH.TD24 TRANSDERMA (08:09)
[2023-05-19] MEDS: methADONE HCl 20 MG/2 ML ORAL.CONC 60 MG PO (08:09)
[2023-05-19] MEDS: Magnesium Oxide 400 MG TABLET PO ×2 (08:09→16:31)
[2023-05-19] MEDS: Docusate Sodium 100 MG CAPSULE PO (08:19)
--- NOTE | 2023-05-19 09:53 | HO.PM.IMPN ---
Subjective Subjective Date of Service: 05/19/23 Interval History: Doing well, no longer on O2 Physical Exam Vital Signs: Vital Signs: Last Vital Signs Temp 97.9 F 05/19/23 08:00 Pulse 79 05/19/23 08:00 Resp 19 05/19/23 08:00 BP 156/53 H 05/19/23 08:00 Pulse Ox 91 L 05/19/23 08:00 O2 Del Method Room Air 05/19/23 08:00 O2 Flow Rate 2 05/18/23 07:46 BMI result Body Mass Index 30.5 Const: Other: General: AO X 3, no acute distress Resp: CTA bilateral CVS: S1,S2,RRR GI: +BS, NT, no distention Skin: No rash Neuro: motor grossly intact Psych: appropriate affect Objective Data Active Medications Acetaminophen (Acetaminophen 325 Mg Tablet) 650 mg PO Q6H PRN PRN Reason: Pain, Mild (Pain Scale 1-3) Last Admin: 05/18/23 08:49 Dose: 650 mg Documented By: FRANCISCO Albuterol/Ipratropium (Albuterol/Iprat 2.5/0.5mg 3 Ml Ampul.Neb) 3 ml INHALE RQ4H WHILE AWAKE [facility] Last Admin: 05/19/23 07:51 Dose: 3 ml Documented By: CELIA Apixaban (Apixaban 5 Mg Tablet) 5 mg PO BID [facility] Last Admin: 05/19/23 08:14 Dose: 5 mg Documented By: CHAITANYA Heparin Sodium (Porcine) 50 (units/ Sodium Chloride 5 ml) 0 units IVFLUSH QSHIFT [facility] Last Admin: 05/19/23 08:10 Dose: 50 unit Documented By: CHAITANYA Docusate Sodium (Docusate Sodium 100 Mg Capsule) 100 mg PO DAILY PRN PRN Reason: Constipation Last Admin: 05/18/23 08:30 Dose: 100 mg Documented By: FRANCISCO Docusate Sodium (Docusate Sodium 100 Mg Capsule) 100 mg PO BID [facility] Last Admin: 05/19/23 08:19 Dose: 100 mg Documented By: CHAITANYA Guaifenesin (Guaifenesin La 600 Mg Tab.Er.12h) 1,200 mg PO BID [facility] Last Admin: 05/19/23 08:08 Dose: 1,200 mg Documented By: CHAITANYA Guaifenesin/Dextromethorphan (Guaifenesin Dm 200/20/10 Ml 10 Ml Syrup) 10 ml PO Q4H PRN PRN Reason: Cough Last Admin: 05/15/23 03:00 Dose: 10 ml Documented By: ELIZABETH-RATNA Ibuprofen (Ibuprofen 400 Mg Tablet) 400 mg PO Q6H PRN PRN Reason: Pain, Mild (Pain Scale 1-3) Last Admin: 05/18/23 20:27 Dose: 400 mg Documented By: PREETI Magnesium Oxide (Magnesium Oxide 400 Mg Tablet) 400 mg PO BIDPC [facility] Last Admin: 05/19/23 08:09 Dose: 400 mg Documented By: CHAITANYA Methadone HCl (Methadone Hcl 20 Mg/2 Ml Oral.Conc) 60 mg PO DAILY [facility] Last Admin: 05/19/23 08:09 Dose: 60 mg Documented By: CHAITANYA Metronidazole (Metronidazole 500 Mg Tablet) 500 mg PO Q12H [facility] Last Admin: 05/19/23 01:24 Dose: 500 mg Documented By: ALYSSA Nicotine (Nicotine 14 Mg Patch.Td24) 14 mg TRANSDERMA DAILY [facility] Last Admin: 05/19/23 08:09 Dose: 14 mg Documented By: CHAITANYA Omeprazole (Omeprazole 20 Mg Capsule.Dr) 20 mg PO BID@0630,1630 [facility] Last Admin: 05/19/23 06:05 Dose: 20 mg Documented By: ALYSSA Ondansetron HCl (Ondansetron Hcl 4 Mg/2 Ml Vial) 4 mg IVPUSH Q8H PRN PRN Reason: Nausea and Vomiting Pharmacy Consult (Consult Rx Perform Med Rec) 1 each MISCELLANE ONCE PRN PRN Reason: Consult order Polyethylene Glycol (Polyethylene Glycol 3350 17 Gm Powd.Pack) 17 gm PO DAILY PRN PRN Reason: Constipation Sodium Chloride (0.9 % Sodium Chloride Flush 3 Ml Syringe) 3 ml IVFLUSH QSHIFT [facility] Last Admin: 05/19/23 08:10 Dose: Not Given Documented By: CHAITANYA Non-Admin Reason: only [id number] Labs 05/10/23 05:33 05/12/23 06:00 Microbiology Microbiology Results: Microbiology 05/10/23 18:10 Gram Stain - Final Pleural Fluid Routine Culture - Final No growth after 2 days Anaerobic Culture - Final NO GROWTH AFTER 5 DAYS Assessment and Plan (1) Transaminitis: Status: Acute (2) Bacteremia due to Streptococcus: Status: Acute (3) Pneumonia: Status: Acute Plan 37-year-old male with no significant PMH not on home medication who presents to the ED with?right-sided pleuritic chest pain and mostly nonproductive cough for the last couple of days.? Patient is homeless and has been feeling generally unwell the past few days.? Presents to ED today after significant worsening of symptoms. . Severe Sepsis 2/2 Strep Pyogenese bacteremia and empeyema that requiredd chest tube on 05/10 and removed 05/13 Initially treated with Clinda, then Vanco, ceftriaxone(started 05/08). ID recommends 4 weeks of Ceftriaxone and 2 weeks of PO Flagyl has PICC line since 05/10, Abx end date 06/02 Acute hypoxic respiratory failure due to above, no resolved, Off O2 Transaminitis likely 2/2 sepsis--improved Nicotine dependence--NRT Opioid use desorder--Methadone hypokalemia -repleted and resolved. corrected, no recent labs, check in the morning Full Code DVT Prophylaxis: Lovenox need for inpt: IV Abx for bacteremia/empayema, to STR when bed available, possible dc alter today if methadone can be arranged on outpatient basis Time Spent With Patient Time: Total time managing care of this patient today ____ minutes. Quality Stroke Does the patient have a stroke diagnosis?: No VTE Prior VTE?: No VTE Risk Level:: Medical - moderate - high VTE Device Contraindication: Treatment Not Indicated VTE Drug Contraindication: N/A - Med Ordered
[2023-05-19] MEDS: Acetaminophen 325 MG TABLET 650 MG PO ×2 (13:26→21:50)
[2023-05-20] MEDS: ondansetron HCL 4 MG/2 ML VIAL IVPUSH (05:20)
--- NOTE | 2023-05-20 05:49 | PC.NURSE ---
CARE ASSUMED 23:15...AWAKE..ALERT..ORIENTED X3...NSR NO ECTOPY...OOB IN RECLINER AT HS...RESPIRATIONS EASY..SAO2 87-88%...DENIED SOB..PLACED ON O2 2 L/M WITH SAO2 94-96%..RESTFUL OVERNIGHT..BACK TO BED...COUGHING THIS AM AND TRANSIENT NAUSEA WITH SMALL AMOUNT OF UNSEEN EMESIS PER PATIENT...PRN ZOFRAN GIVEN WITH RELIEF...DENIED/OFFERED NO COMPLAINTS AT PRESENT
[2023-05-20] MEDS: Omeprazole 20 MG CAPSULE.DR PO (06:43)
[2023-05-20 07:57] VITALS: BP 155/67; PULSE 67; RESP 20; TEMP 36.3; O2SAT 92
[2023-05-20] MEDS: guaiFENesin LA 600 MG TAB.ER.12H 1200 MG PO (08:11)
[2023-05-20] MEDS: Magnesium Oxide 400 MG TABLET PO (08:11)
[2023-05-20] MEDS: methADONE HCl 20 MG/2 ML ORAL.CONC 60 MG PO (08:11)
[2023-05-20] MEDS: Nicotine 14 MG PATCH.TD24 TRANSDERMA (08:12)
[2023-05-20] MEDS: 0.9 % Sodium Chloride Flush 3 ML SYRINGE IVFLUSH (08:12)
--- NOTE | 2023-05-20 11:02 | HO.PM.IMPN ---
Subjective Subjective Date of Service: 05/20/23 Interval History: Off O2, no hypoxia Review of Systems sob improving denies any fever or chills Physical Exam Vital Signs: Vital Signs: Last Vital Signs Temp 97.3 F 05/20/23 07:57 Pulse 67 05/20/23 07:57 Resp 20 05/20/23 07:57 BP 155/67 H 05/20/23 07:57 Pulse Ox 92 05/20/23 07:57 O2 Del Method Room Air 05/20/23 07:57 O2 Flow Rate 2 05/19/23 23:48 BMI result Body Mass Index 30.5 Const: Other: General: AO X 3, no acute distress Resp: CTA bilateral CVS: S1,S2,RRR GI: +BS, NT, no distention Skin: No rash Neuro: motor grossly intact Psych: appropriate affect Objective Data Active Medications Acetaminophen (Acetaminophen 325 Mg Tablet) 650 mg PO Q6H PRN PRN Reason: Pain, Mild (Pain Scale 1-3) Last Admin: 05/19/23 21:50 Dose: 650 mg Documented By: BENJAMIN Apixaban (Apixaban 5 Mg Tablet) 5 mg PO BID [facility] Last Admin: 05/20/23 08:11 Dose: 5 mg Documented By: FRANCISCO Heparin Sodium (Porcine) 50 (units/ Sodium Chloride 5 ml) 0 units IVFLUSH [facility] Last Admin: 05/20/23 08:12 Dose: 50 unit Documented By: FRANCISCO Docusate Sodium (Docusate Sodium 100 Mg Capsule) 100 mg PO DAILY PRN PRN Reason: Constipation Last Admin: 05/18/23 08:30 Dose: 100 mg Documented By: FRANCISCO Docusate Sodium (Docusate Sodium 100 Mg Capsule) 100 mg PO BID [facility] Last Admin: 05/20/23 08:21 Dose: Not Given Documented By: FRANCISCO Non-Admin Reason: Patient Refused Guaifenesin (Guaifenesin La 600 Mg Tab.Er.12h) 1,200 mg PO BID [facility] Last Admin: 05/20/23 08:11 Dose: 1,200 mg Documented By: FRANCISCO Guaifenesin/Dextromethorphan (Guaifenesin Dm 200/20/10 Ml 10 Ml Syrup) 10 ml PO Q4H PRN PRN Reason: Cough Last Admin: 05/15/23 03:00 Dose: 10 ml Documented By: YEISON Ibuprofen (Ibuprofen 400 Mg Tablet) 400 mg PO Q6H PRN PRN Reason: Pain, Mild (Pain Scale 1-3) Last Admin: 05/18/23 20:27 Dose: 400 mg Documented By: PREETI Magnesium Oxide (Magnesium Oxide 400 Mg Tablet) 400 mg PO BIDPC [facility] Last Admin: 05/20/23 08:11 Dose: 400 mg Documented By: FRANCISCO Methadone HCl (Methadone Hcl 20 Mg/2 Ml Oral.Conc) 60 mg PO DAILY [facility] Last Admin: 05/20/23 08:11 Dose: 60 mg Documented By: FRANCISCO Metronidazole (Metronidazole 500 Mg Tablet) 500 mg PO Q12H [facility] Last Admin: 05/20/23 02:06 Dose: 500 mg Documented By: SAEED Nicotine (Nicotine 14 Mg Patch.Td24) 14 mg TRANSDERMA DAILY [facility] Last Admin: 05/20/23 08:12 Dose: 14 mg Documented By: FRANCISCO Omeprazole (Omeprazole 20 Mg Capsule.Dr) 20 mg PO BID@0630,1630 [facility] Last Admin: 05/20/23 06:43 Dose: 20 mg Documented By: SAEED Ondansetron HCl (Ondansetron Hcl 4 Mg/2 Ml Vial) 4 mg IVPUSH Q8H PRN PRN Reason: Nausea and Vomiting Last Admin: 05/20/23 05:20 Dose: 4 mg Documented By: SAEED Pharmacy Consult (Consult Rx Perform Med Rec) 1 each MISCELLANE ONCE PRN PRN Reason: Consult order Polyethylene Glycol (Polyethylene Glycol 3350 17 Gm Powd.Pack) 17 gm PO DAILY PRN PRN Reason: Constipation Sodium Chloride (0.9 % Sodium Chloride Flush 3 Ml Syringe) 3 ml IVFLUSH QSHIFT [facility] Last Admin: 05/20/23 08:12 Dose: 3 ml Documented By: FRANCISCO Labs 05/10/23 05:33 05/12/23 06:00 Assessment and Plan (1) Transaminitis: Status: Acute (2) Bacteremia due to Streptococcus: Status: Acute (3) Pneumonia: Status: Acute Plan 37-year-old male with no significant PMH not on home medication who presents to the ED with?right-sided pleuritic chest pain and mostly nonproductive cough for the last couple of days.? Patient is homeless and has been feeling generally unwell the past few days.? Presents to ED today after significant worsening of symptoms. . Severe Sepsis 2/2 Strep Pyogenese bacteremia and empeyema that requiredd chest tube on 05/10 and removed 05/13 Initially treated with Clinda, then Vanco, ceftriaxone(started 05/08). ID recommends 4 weeks of Ceftriaxone and 2 weeks of PO Flagyl has PICC line since 05/10, Abx end date 06/02 Acute hypoxic respiratory failure due to above, now resolved, Off O2 Transaminitis likely 2/2 sepsis--improved Nicotine dependence--NRT Opioid use desorder--Methadone hypokalemia -repleted and resolved. corrected, no recent labs, check in the morning Full Code DVT Prophylaxis: Lovenox need for inpt: IV Abx for bacteremia/empayema, to STR when bed available, possible dc alter today if methadone can be arranged on outpatient basis Time Spent With Patient Time: Total time managing care of this patient today ____ minutes. Quality Stroke Does the patient have a stroke diagnosis?: No VTE Prior VTE?: No VTE Risk Level:: Medical - moderate - high VTE Device Contraindication: Treatment Not Indicated VTE Drug Contraindication: N/A - Med Ordered
[2023-05-20 11:22] VITALS: BP 137/76; PULSE 67; RESP 20; TEMP 36.1; O2SAT 94
[2023-05-20] MEDS: Acetaminophen 325 MG TABLET 650 MG PO (12:25)
--- NOTE | 2023-05-20 12:50 | MHC.CM.PN ---
Addendum entered by Aleisha Baeza 05/20/23 14:52: PT STATED CONCERN ABOUT ATTIRE PT PROVIDED WITH T-SHIRT AND SWEATPANTS HE HAS NOTHING WITH HIM HE IS AWARE HE WILL TRANSPORT VIA STRETCHER Original Note: CM SPOKE TO [facility] LIAISON WHO STATES PTS METHADONE GUEST DOSING HAS BEEN CONFIRMED WITH [facility] IN [place] TRANSPORT ARRANGED FOR 1500 HOURS WITH BRANDEE RAMSO RN AND PT AWARE
[2023-05-20 13:33] VITALS: BP 137/76; PULSE 67; O2SAT 94
[2023-05-20 15:22] VITALS: BP 126/63; PULSE 69; RESP 18; TEMP 36.1; O2SAT 92
== END 2023-05-20 15:33 | disposition skilled nursing facility (03) | DRG 720 ==
LOC: HO.ED 13:51 → HO.EDOVER 14:34 → HO.IMC 17:09
PROVIDERS: Internal Medicine; Internal Medicine Cardiovascular Disease; Physician Assistant Medical; Student in an Organized Health Care Education/Training Program; Admitting Provider Student in an Organized Health Care Education/Training Program; Emergency Provider Emergency Medicine; Visit Provider Internal Medicine
PROC: 02HV33Z Insertion of Infusion Device into Superior Vena Cava, Percutaneous Approach (ICD-10-PCS; principal; 2023-05-10 08:30)
DX: A40.0 Sepsis due to streptococcus, group A (principal); J69.0 Pneumonitis due to inhalation of food and vomit; J85.1 Abscess of lung with pneumonia; J96.01 Acute respiratory failure with hypoxia; R65.20 Severe sepsis without septic shock; J91.8 Pleural effusion in other conditions classified elsewhere; F11.20 Opioid dependence, uncomplicated; I82.622 Acute embolism and thrombosis of deep veins of left upper extremity; F19.10 Other psychoactive substance abuse, uncomplicated; J45.909 Unspecified asthma, uncomplicated; E87.6 Hypokalemia; Z20.822 Contact with and (suspected) exposure to COVID-19; F17.210 Nicotine dependence, cigarettes, uncomplicated; Z71.6 Tobacco abuse counseling; Z59.02 Unsheltered homelessness; Z88.0 Allergy status to penicillin; Z79.899 Other long term (current) drug therapy
CPT/HCPCS: 32557; 36415; 36573; 71045; 71046; 71250; 80048; 80053; 80076; 80202; 80307; 81001; 82042; 82565; 82803; 82945; 83605; 83615; 83735; 83880; 83986; 84132; 84157; 84484; 85025; 85027; 85610; 86481; 86704; 86706; 86709; 86803; 87040; 87070; 87073; 87086; 87116; 87147; 87205; 87206; 87340; 87389; 87635; 88112; 88305; 89051; 92950; 93005; 93306; 93971; 94640; 97116; 97162; 99285; C1751; J0696; J1642; J1650; J1885; J2270; J2405; J3370; J3371; Q4186

== ENCOUNTER → 2023-05-05 14:22 | Outpatient (BNV) | payer MEDICAID, SELFPAY | PROVIDERS: Admitting Provider Student in an Organized Health Care Education/Training Program; Emergency Provider Emergency Medicine; Visit Provider Student in an Organized Health Care Education/Training Program | DX: R74.01 Elevation of levels of liver transaminase levels (principal); R78.81 Bacteremia; B95.5 Unspecified streptococcus as the cause of diseases classified elsewhere; J18.9 Pneumonia, unspecified organism | CPT/HCPCS: 99223; 99231; 99232; 99233; 99239 ==

== ENCOUNTER 2023-12-03 01:57 | Emergency (ER) | payer MEDICAID, SELFPAY ==
--- NOTE | 2023-12-03 | ECG_ITS ---
Test Reason : OVERDOSE Blood Pressure : / mmHG Vent. Rate : 086 BPM Atrial Rate : 086 BPM P-R Int : 148 ms QRS Dur : 104 ms QT Int : 370 ms P-R-T Axes : 033 025 029 degrees QTc Int : 442 ms Normal sinus rhythm Normal ECG When compared with ECG of 05-MAY-2023 11:11, No significant change was found Referred By: Generic ED Physician Electronically Signed By:Delio Walls
[2023-12-03 02:11] VITALS: BP 144/82; PULSE 70; PULSE 95; RESP 16; TEMP 36.8; O2SAT 97; O2SAT 98; BMI 32.5
[2023-12-03 02:15] VITALS: BP 144/82; PULSE 95; RESP 16; TEMP 36.8; O2SAT 98
--- NOTE | 2023-12-03 02:23 | ED_ITS ---
HPI - Overdose General Chief Complaint: Overdose Stated Complaint: OVERDOSE Time Seen by Provider: 12/03/23 02:23 Source: patient Mode of arrival: ambulatory Limitations: no limitations History of Present Illness HPI Narrative: Patient's history of substance abuse injected 2 bags of heroin became obtunded was given 4 mg of Narcan intranasally responded on arrival patient is alert oriented x4 GCS of 15 no signs of trauma or head injury patient refusing any help Related Data Previous Rx's Medication Instructions Recorded apixaban 5 mg tablet (Eliquis) 5 mg PO BID #60 tabs 05/17/23 ceftriaxone 2 gram solution for 2 g IV Q24H 16 days #16 ea 05/17/23 injection methadone 10 mg/mL oral 60 mg (6 mL) PO DAILY #30 mL 05/17/23 concentrate (Methadose) metronidazole 500 mg tablet 500 mg PO Q12H #27 tabs 05/17/23 nicotine 14 mg/24 hr daily 14 mg transdermal DAILY #30 ea 05/17/23 transdermal patch oxycodone 5 mg tablet 5 mg PO Q6H PRN Pain, Severe (Pain 05/20/23 Scale 7-10) #12 tabs Allergies Allergy/AdvReac Type Severity Reaction Status Date / Time Penicillins Allergy Unknown Verified 06/15/21 16:10 Review of Systems Review of Systems: Yes all other systems are reviewed and are negative PMFSH Past Medical History Medical History Substance abuse Asthma Surgical History Hx of tonsillectomy Social History Social History Household Members: Unknown / Unable to assess Housing: Homeless Alcohol intake: current Alcohol intake frequency: 3 or more drinks per day Alcohol type: hard liquor Patient Tobacco Use Status: Tobacco use Unknown Smoked in Last 30 Days: Yes Use of substances other than those prescribed or required for medical reasons: Yes Substance Use Type: Heroin and Marijuana Advance Directives: No Advance Directives Information Provided: Yes service: No Physical Exam Vital Signs: Vital Signs: Last Vital Signs Temp 98.3 F 12/03/23 06:04 Pulse 74 12/03/23 06:04 Resp 16 12/03/23 06:04 BP 116/68 01/23/24 06:04 Pulse Ox 96 12/03/23 06:04 O2 Del Method Room Air 12/03/23 06:04 BMI result Body Mass Index 32.5 Appearance: Alert. Oriented X3. No acute distress. Eyes: PERRLA, No Nystagmus HEENT: Pharynx normal. Oral Mucosa moist AT NC Neck: Normal inspection. Neck supple. CVS: Normal heart rate and rhythm. Pulses normal. Respiratory: No respiratory distress. Equal air entry bilateral, no wheezing/rales/rhonchi Abdomen: Soft and nontender. Bowel sounds are present, no mass palpable, no CVA tenderness Skin: Skin warm and dry. Normal skin color. Normal skin turgor. Extremities: No lower extremity edema. No calf tenderness Neuro: Oriented X 3. No motor deficit. Medical Decision Making Medical Decision Making [facility] Narrative: Patient with opiate abuse saturating 97% on room air discharge patient home advised to follow detox patient refused any help at this time Independent Interpretation I performed an independent interpretation of an: EKG Interpretation: Normal sinus rhythm heart rate 86 beats per minute normal interval normal axis no acute ST T wave changes no acute ischemia Discharge Plan Discharge Clinical Impression: Opioid use disorder Patient Disposition: Home, Self-Care Instructions: Opioid Use Disorder (ED) Additional Instructions: Follow with detox Stop using drugs Prescriptions: No Action ceftriaxone 2 gram Recon Soln 2 g IV Q24H 16 Days Qty: 16 0RF Eliquis 5 mg tablet 5 mg PO BID Qty: 60 0RF nicotine 14 mg/24 hr Patch 24 Hour 14 mg transdermal DAILY Qty: 30 0RF methadone [Methadose] 10 mg/mL Concentrate 60 mg PO DAILY Qty: 30 0RF Rx Instructions: Partial Fill upon patient request. metronidazole 500 mg Tablet 500 mg PO Q12H Qty: 27 0RF oxycodone 5 mg Tablet 5 mg PO Q6H PRN (Reason: Pain, Severe (Pain Scale 7-10)) Qty: 12 0RF Rx Instructions: Partial Fill upon patient request.
--- OUTSIDE RECORDS SUMMARY | 2023-12-03 03:42 | XMS_ITS | Patient Health Record ---
Author Name Unknown Organization [facility] Address [address] [place] [phone] Support Name Relationship Address Phone Quan Riggs Guarantor Unknown Unavailable REASON FOR REFERRAL No Information SOCIAL HISTORY Sex Assigned At : Social History Observation Description Sex Assigned At Unknown PLAN OF TREATMENT No Information
[2023-12-03 06:04] VITALS: BP 116/68; PULSE 74; RESP 16; TEMP 36.8; O2SAT 96
[2023-12-03] MEDS: Naloxone HCl Nasal TAKE HOME 4 MG SPRAY 8 MG NOSTRILALT (06:36)
== END 2023-12-03 06:51 | disposition home or self-care (01) ==
PROVIDERS: Emergency Provider Internal Medicine
DX: F11.10 Opioid abuse, uncomplicated (principal)
CPT/HCPCS: 93005; 99283; 99285

== ENCOUNTER → 2023-12-03 02:28 | Outpatient (BNV) | payer SELFPAY | PROVIDERS: Emergency Provider Internal Medicine; Visit Provider Internal Medicine Cardiovascular Disease | DX: F11.20 Opioid dependence, uncomplicated (principal) | CPT/HCPCS: 93010 ==